=== PATIENT | female | born 1980 | race Caucasian/White ===

== ENCOUNTER 2016-07-16 10:58 | Emergency (ER) | payer SELFPAY ==
[~2016-07-16] VITALS: Ht 162.6 cm; Wt 52.1 kg
[~2016-07-16 10:58] MED LIST: CALC-335 PO; CLON0.1T12 PO; CYAN10002 INJ; NORT10CA2 PO; OMEP20TA PO; PEDICHW50 PO; TRAZ50TA35 PO
[2016-07-16 11:10] VITALS: Ht 162.6 cm; Wt 52.1 kg
[2016-07-16] MEDS ORDERED: CYNI1000 INJ (11:31)
[2016-07-16 11:59] LABS: BASO % 0.1 %; BASO ABS # 0.01 K/uL (0-0.2); COMPLETE YES; EOS % 1.9 %; HEMATOCRIT 46.3 % (37-47); IG% 0.2 %; LYMPH ABS # 0.77 K/uL (1.2-3.4); MEAN CELL VOLUME 85.3 fL (80-100); MEAN CORPUSCULAR HGB CONC 35.2 g/dl (32-36); MEAN PLATELET VOLUME 10.8 fL (7.4-10.4); NEUT % 85.8 %; PLATELET COUNT 195 K/uL (130-400); RED BLOOD COUNT 5.43 M/uL (4.2-5.4); WHITE BLOOD COUNT 9.57 K/uL (4.8-10.8)
[2016-07-16] MEDS ORDERED: SODIUM CHLORIDE 0.9% 1000ML 1,000 ML IV STA (12:00)
[2016-07-16] MEDS ORDERED: MoRPHine SULFATE 4 MG/ML 1 ML CARP\\VIAL IV STA ×2 (12:00→14:17)
[2016-07-16] MEDS ORDERED: ONDANSETRON INJ 2 MG/ML 2 ML VIAL IV STA ×2 (12:00→14:10)
[2016-07-16 12:27] LABS: CREATININE 0.6 mg/dl (0.60-1.20)
[2016-07-16 12:28] LABS: BUN/CREATININE RATIO 11.8 (10-20); CALCIUM 8.6 mg/dl (8.5-10.1); POTASSIUM 3.2 mmol/L (3.5-5.1)
[2016-07-16 12:30] LABS: ALB/GLOB RATIO 1.1 (0.9-2)
--- NOTE | 2016-07-16 13:23 | DIAGNOSTIC IMAGING REPORT ---
PA CHEST RADIOGRAPH AND UPRIGHT AND SUPINE AP RADIOGRAPHS OF THE ABDOMEN CLINICAL HISTORY: Abdominal pain. COMPARISON STUDY: Chest radiograph July 21, [address] of the abdomen and pelvis January 08, 2016. FINDINGS: Lung volumes are normal. Lungs are clear. There is no pneumothorax or pleural effusion. Pulmonary vascularity is normal. Cardiac size is normal. Mediastinal contours are normal. There is no free air. The bowel gas pattern is normal. Bowel anastomoses are noted as well as cholecystectomy clips. IMPRESSION: 1. No free air or evidence of bowel obstruction. 2. No acute cardiopulmonary findings. Electronically signed by: Kevin Shepherd M.D. 07/16/2016 1:22 PM Dictated Date/Time: 07/16/2016 1:20 PM
[2016-07-16 14:34] LABS: URINE APPEARANCE CLEAR (CLEAR); URINE BILIRUBIN NEG (NEG); URINE COLOR YELLOW; URINE NITRITE NEG (NEG); URINE PH 6.5 (4.5-7.5); URINE SPECIFIC GRAVITY 1.013 (1.000-1.030); UROBILINOGEN NEG (NEG); ZZUR CULT IF INDIC CLEAN CATCH NO
[2016-07-16 14:37] LABS: MANUAL MICROSCOPIC REQUIRED? NO; REVIEW REQ? NO
[2016-07-16] MEDS ORDERED: ACETAMINOPHEN 500 MG TAB PO STA (15:09)
[2016-07-16 16:28] VITALS: BP 120/63; PULSE 97; TEMP 37.9; O2SAT 96
--- NOTE | 2016-07-16 21:51 | EMERGENCY ROOM VISIT NOTE ---
ED Visit Note First contact with patient: 11:50 Chief Complaint: Abdominal pain, nausea, vomiting and diarrhea. History of Present Illness: Ms. Orellana is a 35-year-old white female who ambulates into the ED accompanied by male friend complaining of diffuse abdominal pain, nausea, vomiting and diarrhea. Historically patient reports history of gastric bypass and is status post bowel obstruction, status post appendectomy, hiatal hernia and GERD. Patient reports her symptoms started 2 days ago with nausea, vomiting and diarrhea. Initially her symptoms were mild and gradually intensified. She reports that she has been vomiting 4-5 times in 12 hours and has been having watery stools 3-4 times every 12 hours. Over the last 24 hours she has been developing diffuse abdominal pain. She describes her pain as a cramping sensation. Her pain is nonradiating. She describes a building intensity of pain and then has an episode of vomiting or diarrhea. She reports she has not been able to take any medications for her symptoms prior to arrival at the hospital as they increase her nausea/vomiting. Over the last few hours she reports that she is no longer vomiting but just dry heaving. Associated with her pain and other symptoms she reports she feels like she is dehydrated, she has developed a headache and has been having some chills. Additionally patient reports that her grandmother was admitted to the hospital 4 days ago with similar symptoms and her current boyfriend had similar symptoms 2 days ago. She denies chills, sweats, skin eruptions, skin color changes, dizziness, lightheadedness, recent head trauma, abnormal neurological symptoms, neck pain, back pain, chest pain, shortness of breath, cough, wheezing, hematemesis, coffee ground-like emesis, black/tarry stools, bloody stools, urinary symptoms, hematuria. Review of Systems: As noted above in history of present illness. All body systems were reviewed and found to be negative as noted above. Past Medical History: As previously noted, depression and status post tonsillectomy. Current Medications: Multivitamins, calcium, trazodone, Catapres, Omeprazole, cyanocobalamin. Allergies to Medications: Hydromorphone, NSAIDs, bupropion. Social History: Patient is currently unemployed; she feels safe in her home environment; she admits to tobacco use and denies alcohol use. Physical Examination: Vital Signs: Date Time Temp Pulse Resp B/P Pulse Ox O2 Delivery O2 Flow Rate FiO2 07/16/16 16:28 37.9 97 16 120/63 96 Room Air 07/16/16 14:46 38.2 105 20 95 Room Air 07/16/16 13:17 64 16 111/76 100 Room Air 07/16/16 11:10 37.0 81 18 133/83 97 Room Air GENERAL: 35-year-old female in moderate distress due to symptoms, nontoxic- appearing, afebrile and hemodynamically stable. NEUROLOGICAL: Awake, alert and oriented to person, place and time. Answering questions appropriately and following commands. Normal gait. Good hand eye coordination. No focal motor sensory deficits. SKIN: Warm, dry and pink. No soft tissue eruptions or trauma noted. HEENT: Atraumatic and normocephalic. PERRLA. Sclera white and conjunctiva pink. No drainage from naris. Oral cavity moist and pink. Pharynx is nonerythematous or edematous. Speech normal. No lymphadenopathy. Trachea midline. No jugular venous distention. BACK: No tenderness over the bony spine. No CVA tenderness. THORAX: Lungs sounds are clear to auscultation and equal bilaterally with symmetrical chest wall. No wheezing, rales or rhonchi. No crepitus, tenderness , subcutaneous air or deformities noted. HEART: Regular rate and rhythm. No gallops, rubs or murmurs are appreciated. ABDOMEN: Flat and soft with moderate diffuse tenderness. Positive bowel sounds in all quadrants. No guarding, rigidity or organomegaly. EXTREMITIES: Moves all extremities well on command and with purpose. All distal neurovascular statuses are intact and equal bilaterally. ED Course: Patient is assessed as noted above. Laboratory Testing: Test 07/16/16 11:20 07/16/16 14:05 Range/Units White Blood Count 9.57 4.8-10.8 K/uL Red Blood Count 5.43 4.2-5.4 M/uL Hemoglobin 16.3 12.0-16.0 g/dL Hematocrit 46.3 37-47 % Mean Corpuscular Volume 85.3 80-100 fL Mean Corpuscular Hemoglobin 30.0 25-34 pg Mean Corpuscular Hemoglobin Concent 35.2 32-36 g/dl Platelet Count 195 130-400 K/uL Mean Platelet Volume 10.8 7.4-10.4 fL Neutrophils (%) (Auto) 85.8 % Lymphocytes (%) (Auto) 8.0 % Monocytes (%) (Auto) 4.0 % Eosinophils (%) (Auto) 1.9 % Basophils (%) (Auto) 0.1 % Neutrophils # (Auto) 8.21 1.4-6.5 K/uL Lymphocytes # (Auto) 0.77 1.2-3.4 K/uL Monocytes # (Auto) 0.38 0.11-0.59 K/uL Eosinophils # (Auto) 0.18 0-0.5 K/uL Basophils # (Auto) 0.01 0-0.2 K/uL RDW Standard Deviation 39.2 36.4-46.3 fL RDW Coefficient of Variation 12.5 11.5-14.5 % Immature Granulocyte % (Auto) 0.2 % Immature Granulocyte # (Auto) 0.02 0.00-0.02 K/uL Sodium Level 141 136-145 mmol/L Potassium Level 3.2 3.5-5.1 mmol/L Chloride Level 104 98-107 mmol/L Carbon Dioxide Level 28 21-32 mmol/L Anion Gap 9.0 3-11 mmol/L Blood Urea Nitrogen 7 7-18 mg/dl Creatinine 0.60 0.60-1.20 mg/dl Est Creatinine Clear Calc Drug Dose 106.6 ml/min Estimated GFR () 135.9 Estimated GFR (Non- 117.3 BUN/Creatinine Ratio 11.8 10-20 Random Glucose 108 70-99 mg/dl Calcium Level 8.6 8.5-10.1 mg/dl Total Bilirubin 0.5 0.2-1 mg/dl Aspartate Amino Transf (AST/SGOT) 12 15-37 U/L Alanine Aminotransferase (ALT/SGPT) 20 12-78 U/L Alkaline Phosphatase 50 45-117 U/L Total Protein 6.4 6.4-8.2 gm/dl Albumin 3.3 3.4-5.0 gm/dl Globulin 3.1 2.5-4.0 gm/dl Albumin/Globulin Ratio 1.1 0.9-2 Lipase 76 73-393 U/L Urine Color YELLOW Urine Appearance CLEAR CLEAR Urine pH 6.5 4.5-7.5 Urine Specific [place] 1.013 1.000-1.030 Urine Protein NEG NEG Urine Glucose (UA) NEG NEG Urine Ketones 2+ NEG Urine Occult Blood NEG NEG Urine Nitrite NEG NEG Urine Bilirubin NEG NEG Urine Urobilinogen NEG NEG Urine Leukocyte Esterase NEG NEG Acute Abdominal Series: Was reviewed by myself and read by the radiologist showing no acute infiltrates, effusions or pneumothorax. Normal heart silhouette and bony anatomy. No evidence of bowel obstruction or free air in the abdomen. Patient was hydrated with normal saline, she received a total of 8 mg of Zofran IV for nausea and a total of 8 mg of morphine IV for pain. Additionally she was noted to have fever leg during her stay in the ED and she was given 1 g of acetaminophen by mouth for fever. Patient was reassessed multiple times during her stay in the emergency department. Patient was trialed on juice and crackers and was able to tolerate this without return of nausea/vomiting. Additionally she was not able to give me a stool sample for study. Patient's case was reviewed with Dr. Hale; we agreed on diagnostic approach, treatment, disposition and plan. Patient was educated about negroight's findings and instructed on her treatment plan; she verbalizes understanding and agreement with this plan. Clinical Impression: Acute gastroenteritis. Decision-Making: Initially my differential diagnosis I considered gastroenteritis, colitis, bowel obstruction, diarrheal illness, C. difficile and other causes. Disposition: Patient discharged home in stable condition accompanied by her ; prior to departure she was reassessed and subjectively reported she was feeling much better and reported resolution of nausea, no additional episodes of diarrhea and rated her abdominal discomfort 2/10. Plan: Patient was encouraged use 650 mg of acetaminophen every 6 hours as needed for pain and NSAIDs. Patient was encouraged to use 4 mg of Zofran every 6 hours for nausea/vomiting and use [id number] Imodium for return of diarrhea. Patient was encouraged to stay well-hydrated neck days and use a bland diet for 48 hours. Patient was encouraged to follow-up with her primary care practitioner for recheck in 2-3 days. Patient was encouraged return ED for worsening/uncontrolled pain, worsening vomiting, diarrhea, bloody vomitus, bloody stools, fevers or any new/concerning symptoms.
== END 2016-07-16 16:30 | disposition home or self-care (01) ==
LOC: C.EDB 11:02
DX: K52.9 Noninfective gastroenteritis and colitis, unspecified (principal); F17.200 Nicotine dependence, unspecified, uncomplicated; F32.9 Major depressive disorder, single episode, unspecified

== ENCOUNTER 2017-04-17 03:18 | Emergency (ER) | payer SELFPAY ==
[~2017-04-17] VITALS: Ht 162.6 cm; Wt 53.5 kg
[~2017-04-17 03:18] MED LIST changes: -CYAN10002 INJ; +CYNI1000 INJ; -NORT10CA2 PO
[2017-04-17 03:23] VITALS: TEMP 36.7; Ht 162.6 cm; Wt 53.5 kg
[2017-04-17] MEDS ORDERED: CLONIDINE HCL 0.1 MG/24 HR TRANSDERM SYS TD STA (04:01)
--- NOTE | 2017-04-17 04:11 | EMERGENCY ROOM VISIT NOTE ---
History Report prepared by Kathya: Daya Christensen Under the Supervision of: Dr. Flor Suggs D.O. First contact with patient: 03:37 Chief Complaint: DETOX REQUEST Stated Complaint: DETOX REQUEST Nursing Triage Summary: Patient wishes to detox from opioids. Patient states she used heroin one hour ago. 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 The patient states that she is a heroin addict. She last used heroin 1 hour ago. She states that she stooped to the lowest level tonight by stealing her mother's [employer] card and car to go get some heroin. She was starting to have withdrawal symptoms today which drove her to go buy more heroin. She did use heroin yesterday. She has been using heroin intermittently for the past year. She went through detox 2 times. The first time she stayed clean for 1 month and the second time she stayed clean for 2 month. She started using again 3-4 months ago. She is now using daily. She has withdrawal symptoms if she does not use daily. Her withdrawal symptoms include cold sweats, sneezing, cold symptoms, leg pain, abdominal pain, vomiting, and diarrhea. She currently denies any nausea. She denies any other drug use or alcohol use. She has a history of gastric bypass, stomach problems, anxiety, and back pain. 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 A total of 10 systems reviewed and were otherwise negative. Past Medical & Surgical Medical Problems: (1) Depression (2) GERD (gastroesophageal reflux disease) Surgical Problems: (1) H/O gastric bypass (2) History of cholecystectomy (3) Hx of tonsillectomy Family History Cancer Diabetes mellitus Gallbladder disease Hypertension Kidney disease or stones Social History Smoking Status: Current Every Day Smoker Alcohol Use: none Marital Status: Housing Status: lives with family Occupation Status: employed Current/Historical Medications Scheduled Calcium Citrate-Vitamin D (Citracal Petites/Vitamin), 5 TABLETS PO DAILY Omeprazole (Omeprazole), 40 MG PO DAILY Ondasetron Odt (Zofran Odt), 4 MG SL Q8 Pediatric Multiple Vitamin W/ (Flintstones Chewable), 2 CHW PO BID Scheduled PRN Trazodone Hcl (Trazodone), 25-50 MG PO HS PRN for Sleep Allergies Coded Allergies: Bupropion (Verified Allergy, Unknown, HIVES, 04/17/17) NSAIDs (Verified Allergy, Unknown, GASTRIC BYPASS, 04/17/17) Hydromorphone (Verified Adverse Reaction, Mild, VOMITING, 04/17/17) Physical Exam Vital Signs Date Time Temp Pulse Resp B/P (MAP) Pulse Ox O2 Delivery O2 Flow Rate FiO2 04/17/17 05:12 73 16 109/65 96 04/17/17 04:54 64 16 109/68 96 Room Air 04/17/17 03:23 36.7 108 20 128/90 97 Room Air Physical Exam GENERAL: tearful, anxious LUNGS: Clear to auscultation. Normal chest wall mechanics HEART: no murmurs, S1 normal and S2 normal ABDOMEN: abdomen soft, non-tender, normo-active bowel sounds, no masses, no rebound or guarding. SKIN: no rashes and no bruising UPPER EXTREMITIES: upper extremities are grossly normal. LOWER EXTREMITIES: No pitting edema. NEURO EXAM: Normal sensorium, cranial nerves II-XII grossly intact, normal speech, no gross weakness of arms, no gross weakness of legs. Medical Decision & Procedures Medications Administered Medications (Trade) Dose Ordered Sig/Keven Route Start Time Stop Time Status Last Admin Dose Admin Clonidine HCl ([id number] 0.1mg/24hr Patch) 1 patch NOW STAT TD 04/17/17 04:01 04/17/17 04:03 DC 04/17/17 04:41 1 PATCH ED Course 0340: The patient was evaluated in room B3B. A complete history and physical exam was performed. 0401: Ordered Clonidine HCl 1 patch TD. 0410: The correctional case manager has spoken with the patient about rehab. She is in understanding of the plan. She was discharged home. 0415: Ordered Ondansetron HCl 1 homepack PO. Medical Decision Patient without any symptoms of acute intoxication. Patient tearful and remorseful. Bedside regarding her continued heroin addiction. No symptoms of active withdrawal. Patient was given referrals by correctional case manager regarding [facility] resources for drug rehabilitation. Patient given Valefran as Certain, clonidine patch placed. Discussed with her symptoms to watch and return for, usual course and timeframe for detox, need for continued support in her efforts to stay clean, she verbalized understanding of all this was agreeable with plan. Medication Reconcilliation Current Medication List: was personally reviewed by me Blood Pressure Screening Patient's blood pressure: Elevated blood pressure Blood pressure disposition: Elevated BP felt to be situational Impression Primary Impression: Heroin abuse Additional Impression: Anxiety Scribe Attestation The scribe's documentation has been prepared under my direction and personally reviewed by me in its entirety. I confirm that the note above accurately reflects all work, treatment, procedures, and medical decision making performed by me. Departure Information Dispostion Home / Self-Care Prescriptions Ondasetron Odt (ZOFRAN ODT) 4 Mg Tab 4 MG SL Q8 for Nausea, #20 TAB Prov: Flor Suggs, DO 04/17/17 Referrals Alexey Buenrostro M.D.([facility]) (PCP) Patient Instructions My [facility] Additional Instructions Please do not use illegal drugs. Use of illegal drugs can result in long-term health complications, incarceration, and even . You may use a nausea medication as prescribed. Please leave the patch on for a week unless it is irritating to your skin. If you are developing complications or symptoms related to heroin withdrawal, please return the emergency room. If you begin to have any worsening anxiety or depression symptoms, please return the emergency room. Problem Qualifiers
[2017-04-17] MEDS ORDERED: ONDA4TAB10 SL (04:12)
[2017-04-17] MEDS ORDERED: ONDANSETRON HOME PACK 4MG OD TAB PO ONE (04:15)
[2017-04-17 05:12] VITALS: BP 109/65; PULSE 73; O2SAT 96
== END 2017-04-17 05:13 | disposition home or self-care (01) ==
LOC: C.EDB 03:19
DX: F11.10 Opioid abuse, uncomplicated (principal); F41.9 Anxiety disorder, unspecified; F32.9 Major depressive disorder, single episode, unspecified; K21.9 Gastro-esophageal reflux disease without esophagitis; Z98.84 Bariatric surgery status; Z80.9 Family history of malignant neoplasm, unspecified; Z83.3 Family history of diabetes mellitus; Z83.79 Family history of other diseases of the digestive system; Z82.49 Family history of ischemic heart disease and other diseases of the circulatory system; Z84.1 Family history of disorders of kidney and ureter; F17.210 Nicotine dependence, cigarettes, uncomplicated; Z79.899 Other long term (current) drug therapy

== ENCOUNTER 2017-05-31 02:00 | Emergency (ER) | payer OTHER ==
[~2017-05-31] VITALS: Ht 162.6 cm; Wt 55.7 kg
[~2017-05-31 02:00] MED LIST changes: -CLON0.1T12 PO; -CYNI1000 INJ; +ONDA4TAB10 SL
[2017-05-31 02:02] VITALS: TEMP 36.7; Ht 162.6 cm; Wt 55.7 kg
[2017-05-31] MEDS ORDERED: METOCLOPRAMIDE HCL INJ 5 MG/ML 2 ML VIAL IV STA (02:17)
[2017-05-31] MEDS ORDERED: LIDOCAINE HCL 2% VISC SOLN 20 ML UDC PO STA (02:17)
[2017-05-31] MEDS ORDERED: SODIUM CHLORIDE 0.9% 1000ML 1,000 ML IV STA (02:17)
[2017-05-31] MEDS ORDERED: DiphenhydrAMINE HCL 50 MG/ML VIAL IV STA (02:17)
[2017-05-31] MEDS ORDERED: ALUMINUM/MAGNESIUM SUSP 30 ML UDC PO STA (02:17)
[2017-05-31] MEDS ORDERED: ONDA4TAB10 SL (02:30)
[2017-05-31] MEDS ORDERED: DICYCLOMINE HCL 10 MG/ML 2 ML AMP IM ONE (02:30)
[2017-05-31] MEDS ORDERED: QUET200T2 PO (02:31)
[2017-05-31] MEDS ORDERED: METH-307 PO (02:32)
[2017-05-31] MEDS ORDERED: ROPI0.25 PO (02:33)
[2017-05-31] MEDS ORDERED: BUSP15TA70 PO (02:35)
[2017-05-31 02:45] VITALS: O2SAT 97
[2017-05-31 02:58] LABS: BASO % 0.2 %; BASO ABS # 0.02 K/uL (0-0.2); EOS % 0.8 %; EOS ABS # 0.07 K/uL (0-0.5); HEMATOCRIT 41.3 % (37-47); IG# 0.01 K/uL (0.00-0.02); LYMPH % 22.1 %; LYMPH ABS # 2.01 K/uL (1.2-3.4); MEAN CELL VOLUME 80.5 fL (80-100); MEAN CORPUSCULAR HEMOGLOBIN 27.3 pg (25-34); MEAN CORPUSCULAR HGB CONC 33.9 g/dl (32-36); MEAN PLATELET VOLUME 9.7 fL (7.4-10.4); MONO % 4.7 %; MONO ABS # 0.43 K/uL (0.11-0.59); NEUT % 72.1 %; NEUT ABS # 6.54 K/uL (1.4-6.5); PLATELET COUNT 227 K/uL (130-400); RED CELL DISTRIBUTION WIDTH CV 15.8 % (11.5-14.5); RED CELL DISTRIBUTION WIDTH SD 46.2 fL (36.4-46.3); WHITE BLOOD COUNT 9.08 K/uL (4.8-10.8)
[2017-05-31 03:20] LABS: ALT/SGPT 17 U/L (12-78); AST/SGOT 9 U/L (15-37); BLOOD UREA NITROGEN 12 mg/dl (7-18); CALCIUM 8.7 mg/dl (8.5-10.1); CARBON DIOXIDE 29 mmol/L (21-32); CREATININE 0.66 mg/dl (0.60-1.20); GLUCOSE 103 mg/dl (70-99); LIPASE 96 U/L (73-393); POTASSIUM 2.8 mmol/L (3.5-5.1); SODIUM 136 mmol/L (136-145)
[2017-05-31] MEDS ORDERED: POTASSIUM CHLORIDE 20 MEQ/15 ML UDC PO STA ×3 (03:24→05:25)
[2017-05-31] MEDS ORDERED: POTASSIUM CHLR 20 MEQ / WTR 20 MEQ in PREMIXED WATER 100 ML IV STA (03:24)
[2017-05-31 03:25] LABS: ALKALINE PHOSPHATASE 69 U/L (45-117); TOTAL PROTEIN 7.8 gm/dl (6.4-8.2)
[2017-05-31] MEDS ORDERED: KETOROLAC TROMETHAMINE 30 MG/ML VIAL IV STA (03:45)
[2017-05-31] MEDS: POTASSIUM CHLR 10MEQ / WTR IV SCH ×2 (04:11→05:00)
[2017-05-31] MEDS ORDERED: BENTYL HOME PACK 10 MG VIAL PO ONE (04:15)
[2017-05-31] MEDS ORDERED: ONDANSETRON HOME PACK 4MG OD TAB PO ONE (04:15)
--- NOTE | 2017-05-31 05:31 | EMERGENCY ROOM VISIT NOTE ---
History First contact with patient: 02:08 Chief Complaint: VOMITING Stated Complaint: CHEST,BACK AND STOMACH PAIN,VOMITING Nursing Triage Summary: see triage note History of Present Illness The patient is a 36 year old female who presents to the Emergency Room with complaints of nausea, vomiting, diarrhea, abdominal cramping, chest pain and dental pain for the past few days that is steadily getting worse. Patient has a history apparently abuse and has been clean for 1 month now. No recent antibiotics. No well water. Patient denies fever, cough, congestion, headache , neck pain, back pain. No sick contacts. No blood or black in the stool or emesis. Review of Systems See HPI for pertinent positives & negatives. A total of 10 systems reviewed and were otherwise negative. Past Medical/Surgical History Medical Problems: (1) Depression (2) GERD (gastroesophageal reflux disease) Surgical Problems: (1) H/O gastric bypass (2) History of cholecystectomy (3) Hx of tonsillectomy Family History Cancer Diabetes mellitus Gallbladder disease Hypertension Kidney disease or stones Social History Smoking Status: Current Every Day Smoker Alcohol Use: none Marital Status: Housing Status: lives with family Occupation Status: employed Current/Historical Medications Scheduled Buspirone Hcl (Buspar), 15 MG PO TID Calcium Citrate-Vitamin D (Citracal Petites/Vitamin), 5 TABLETS PO DAILY Omeprazole (Omeprazole), 40 MG PO DAILY Pediatric Multiple Vitamin W/ (Flintstones Chewable), 2 CHW PO BID Quetiapine Fumarate Xr (Seroquel Xr), 200 MG PO HS Ropinirole (Requip), 0.25 MG PO TID/PRN Scheduled PRN Methocarbamol (Robaxin), 750 MG PO TID PRN for SPASMS Ondasetron Odt (Zofran Odt), 4 MG SL Q8 PRN for Nausea or Vomiting Physical Exam Vital Signs Date Time Temp Pulse Resp B/P (MAP) Pulse Ox O2 Delivery O2 Flow Rate FiO2 05/31/17 04:28 64 20 150/94 100 Room Air 05/31/17 02:55 66 05/31/17 02:45 97 Room Air 05/31/17 02:45 97 Room Air 05/31/17 02:02 36.7 73 18 157/90 99 Room Air Physical Exam VITALS: Vitals are noted on the nurse's note and reviewed by myself. Vital signs stable. GENERAL: White female, in no acute distress, nondiaphoretic, well-developed well -nourished. SKIN: The skin was without rashes, erythema, edema, or bruising. There is no tenting of the skin. Capillary reflex less than 2 seconds. HEAD: Normocephalic atraumatic. EARS: External auditory canals clear, tympanic membranes pearly bronson without erythema or effusion bilaterally. EYES: Pupils equal round and reactive to light and accommodation. Conjunctivae without injection, sclerae without icterus. Extraocular movements intact. NOSE: Patent, turbinates without inflammation or discharge. No sinus tenderness. MOUTH: Mucous membranes mildly dry. Pharynx without erythema or exudate. Uvula midline. Airway patent. Tongue does not deviate. Dental exam: Right lower second molar with extensive dental decay with no palpable abscess. Overall dental hygiene fair. No Ravi angina NECK: Supple without nuchal rigidity. No lymphadenopathy. No thyromegaly. Cervical spine is nontender. No JVD. HEART: Regular rate and rhythm LUNGS: Clear to auscultation bilaterally without wheezes, rales or rhonchi. No dullness to percussion. No retractions or accessory muscle use. ABDOMEN: Positive bowel sounds x 4. Normal tympanic percussion. Soft, nontender, without masses or organomegaly. Thomson sign negative. No guarding or rebound tenderness. No CVA tenderness MUSCULOSKELETAL: No muscle atrophy, erythema, or edema noted. NEURO: Patient was alert and oriented to person place and time. Normal sensation to light and sharp touch. No focal neurological deficits. Medical Decision & Procedures Laboratory Results 05/31/17 02:35 Red Blood Count 5.13, Mean Corpuscular Volume 80.5, Mean Corpuscular Hemoglobin 27.3, Mean Corpuscular Hemoglobin Concent 33.9, Mean Platelet Volume 9.7, Neutrophils (%) (Auto) 72.1, Lymphocytes (%) (Auto) 22.1, Monocytes (%) (Auto) 4.7, Eosinophils (%) (Auto) 0.8, Basophils (%) (Auto) 0.2, Neutrophils # (Auto) 6.54, Lymphocytes # (Auto) 2.01, Monocytes # (Auto) 0.43, Eosinophils # (Auto) 0.07, Basophils # (Auto) 0.02 05/31/17 02:35 Test 05/31/17 02:35 05/31/17 04:59 White Blood Count 9.08 K/uL (4.8-10.8) Red Blood Count 5.13 M/uL (4.2-5.4) Hemoglobin 14.0 g/dL (12.0-16.0) Hematocrit 41.3 % (37-47) Mean Corpuscular Volume 80.5 fL (80-100) Mean Corpuscular Hemoglobin 27.3 pg (25-34) Mean Corpuscular Hemoglobin Concent 33.9 g/dl (32-36) Platelet Count 227 K/uL (130-400) Mean Platelet Volume 9.7 fL (7.4-10.4) Neutrophils (%) (Auto) 72.1 % Lymphocytes (%) (Auto) 22.1 % Monocytes (%) (Auto) 4.7 % Eosinophils (%) (Auto) 0.8 % Basophils (%) (Auto) 0.2 % Neutrophils # (Auto) 6.54 K/uL (1.4-6.5) Lymphocytes # (Auto) 2.01 K/uL (1.2-3.4) Monocytes # (Auto) 0.43 K/uL (0.11-0.59) Eosinophils # (Auto) 0.07 K/uL (0-0.5) Basophils # (Auto) 0.02 K/uL (0-0.2) RDW Standard Deviation 46.2 fL (36.4-46.3) RDW Coefficient of Variation 15.8 % (11.5-14.5) Immature Granulocyte % (Auto) 0.1 % Immature Granulocyte # (Auto) 0.01 K/uL (0.00-0.02) Anion Gap 7.0 mmol/L (3-11) Est Creatinine Clear Calc Drug Dose 100.8 ml/min Estimated GFR () 130.8 Estimated GFR (Non- 112.9 BUN/Creatinine Ratio 17.4 (10-20) Calcium Level 8.7 mg/dl (8.5-10.1) Magnesium Level 2.1 mg/dl (1.8-2.4) Total Bilirubin 0.4 mg/dl (0.2-1) Direct Bilirubin 0.1 mg/dl (0-0.2) Aspartate Amino Transf (AST/SGOT) 9 U/L (15-37) Alanine Aminotransferase (ALT/SGPT) 17 U/L (12-78) Alkaline Phosphatase 69 U/L (45-117) Troponin I < 0.015 ng/ml (0-0.045) Total Protein 7.8 gm/dl (6.4-8.2) Albumin 4.0 gm/dl (3.4-5.0) Lipase 96 U/L (73-393) Human Chorionic Gonadotropin, Qual NEG (NEG) Bedside Troponin I < 0.030 ng/ml (0-0.045) Medications Administered Medications (Trade) Dose Ordered Sig/Keven Route Start Time Stop Time Status Last Admin Dose Admin Lidocaine HCl (Viscous Lidocaine 2% Soln) 10 ml NOW STAT PO 05/31/17 02:17 05/31/17 02:19 DC 05/31/17 02:44 10 ML Al Hydroxide/Mg Hydroxide (Maalox Susp) 30 ml NOW STAT PO 05/31/17 02:17 05/31/17 02:19 DC 05/31/17 02:44 30 ML Metoclopramide HCl (Reglan Inj) 10 mg NOW STAT IV 05/31/17 02:17 05/31/17 02:19 DC 05/31/17 02:44 10 MG Diphenhydramine HCl (Benadryl Inj) 25 mg NOW STAT IV 05/31/17 02:17 05/31/17 02:19 DC 05/31/17 02:44 25 MG Dicyclomine HCl (Bentyl Inj) 20 mg NOW ONCE IM 05/31/17 02:30 05/31/17 02:31 DC 05/31/17 02:44 20 MG Sodium Chloride 1,000 ml @ 999 mls/hr Q1H1M STAT IV 05/31/17 02:17 05/31/17 03:17 DC 05/31/17 02:43 999 MLS/HR Potassium Chloride (Cindi Ciel Elix) 40 meq NOW STAT PO 05/31/17 03:24 05/31/17 03:26 DC 05/31/17 03:24 40 MEQ Ketorolac Tromethamine (Toradol Inj) 30 mg NOW STAT IV 05/31/17 03:45 05/31/17 03:46 DC 05/31/17 03:45 30 MG Potassium Chloride 10 meq/ Prmx 100 ml @ 100 mls/hr Q1H IV 05/31/17 04:00 05/31/17 05:59 05/31/17 05:00 100 MLS/HR ED Course Prior records/ancillary studies reviewed. Triage Nursing notes reviewed. Additional history obtained from the family. The patient's history was concerning for nausea, vomiting, diarrhea, and abdominal pain with dental pain and chest pain. Differential diagnosis: Etiologies such as gastroenteritis, dental caries, dental abscess, cardiac, food borne illness, infections, appendicitis, diverticulitis, inflammatory bowel disease, obstruction, GI bleed, biliary pathology, as well as others were entertained. Physical examination findings: As above. Abdominal examination revealed no localized tenderness. Vital signs reviewed and revealed stable. ER treatment provided: IV hydration 1 L NSS. GI cocktail, Bentyl, Reglan, Benadryl On reassessment the patient felt better. Patient was tolerating p.o. intake. Diagnostics interpretation by me: EKG: Normal sinus, normal intervals, no acute ST-T changes. Impression normal sinus rhythm interpreted by myself. Poor baseline. The labs revealed hypokalemia and this is replaced orally. Negative hCG. 2 negative troponins. Imaging studies: Chest x-ray with no acute consolidation, pneumothorax or free air per my interpretation This appears to be consistent with vomiting and diarrhea most likely viral in etiology and dental pain from dental caries. Patient started screaming and yelling at the nurse demanding for pain meds. She was informed that she was not receiving narcotics tonight. She then started yelling screaming at me saying that I thought she is drug-seeking. Nurse, Brain was present for this. 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 I informed her that she does not need narcotics for his GI illness with vomiting and diarrhea. Patient then demanded to leave. I felt this is reasonable to replace potassium orally as she refused further IV potassium therapy. Patient's first dose of potassium was replaced orally. She is tolerating fluids. I believe her chest pain is most likely related to her gastritis and was advised to continue her omeprazole as directed and to take Maalox and Zantac for breakthrough symptoms. She is advised to rest, stay well-hydrated and to take medications as directed. She is advised to follow-up with family care in a few days or here in the ER sooner for vomiting, fevers, pain, worsening signs or symptoms or as needed. Patient did not have acute abdomen on exam. She is well-appearing. By the evaluation outlined above emergent etiologies such as appendicitis, diverticulitis, obstruction, cardiac sources, mesenteric ischemia, aortic pathology, inflammatory bowel disease, renal colic, PUD, biliary pathology, UTI, as well as others were deemed relatively unlikely. The pt informed about the findings as listed above. All questions were answered and displeased with the treatment as she wanted pain meds for her symptoms today. Return instructions were outlined and the patient was discharged in stable condition. Outpatient prescription management: ji orozco Bentyl Referral: The patient was referred to their primary care physician for follow-up in 2 to 3 days for a recheck of the current condition. Case reviewed with my attending Medical Decision As above Medication Reconcilliation Current Medication List: was personally reviewed by me Blood Pressure Screening Patient's blood pressure: Elevated blood pressure Blood pressure disposition: Elevated BP felt to be situational Impression Primary Impression: Nausea, vomiting, and diarrhea Additional Impressions: Epigastric abdominal pain Dental caries Pain, dental Departure Information Dispostion Home / Self-Care Condition GOOD Referrals No Doctor, Assigned (PCP) Patient Instructions My [facility] Additional Instructions DO NOT drive, drink alcohol, operate machinery, or perform dangerous activities today. You were given medications in the ER that can affect your ability to safely function or operate a vehicle. Take 40 mEq of potassium at lunch and the other 40 mEq of potassium at dinner. Bentyl 10 m tablet every 6 hours as needed for abdominal cramping and diarrhea. Zofran(odansetron) tablets 4mg: Take one and allow it to dissolve in your mouth every four to six hours as needed for nausea or vomiting. Acetaminophen(Tylenol) may be used for fever or pain. Use 500mg every six hours as needed. Avoid using more than 2000mg in a 24 hour period. Rest and drink plenty of fluids as tolerated. Slow sips of water or sports drinks are recommended instead of large amounts all at once. Continue current medications. Once your stomach is settled start with a clear liquid diet (jello, soup broth, etc.) and then advance as tolerated. You should avoid full, heavy meals for about 24 hrs from the time your symptoms resolved. Return to the ER for persistent vomiting, fevers, abdominal pain, chest pains, difficulty breathing, black or bloody stools, worsening of your condition, or as needed. Follow up with your primary physician in 2-3 days for a recheck of your current condition. Dental pain: Clindamycin 150mg: Take one pill 4 times daily for 10 days for your infection. Take with food, but avoid dairy. Avoid prolonged sun exposure since this medication makes you temporarily more susceptible to sunburns. All antibiotics can cause diarrhea. If this occurs and you feel worse or it does not resolve in 1-2 days follow up with your doctor or return to the Emergency Department as this could be signs of serious underlying problems. Any medication can cause an allergic reaction, stop the pills immediately and return to the ER for rash, hives, breathing difficulties, or swelling. Acetaminophen(Tylenol) may be used for fever or pain. Use 1000mg every six hours as needed. Avoid using more than 3000mg in a 24 hour period. This medication can be taken if you need to drive, work, or perform activities which may be dangerous when taking narcotic pain medication. Luther teeth twice a day, floss daily and do warm saltwater gargles 3 times a day. See a dentist as soon as possible for definitive care for your dental problem. Return to ER sooner for facial swelling, fever, redness, worsening signs or symptoms or as needed. Problem Qualifiers
[2017-05-31] MEDS ORDERED: CLIN150C PO (05:32)
[2017-05-31 05:38] VITALS: BP 134/70; PULSE 78; O2SAT 98
--- NOTE | 2017-05-31 08:00 | DIAGNOSTIC IMAGING REPORT ---
CHEST ONE VIEW PORTABLE CLINICAL HISTORY: Chest pain and vomiting. COMPARISON STUDY: Chest radiograph July 16, 2016. FINDINGS: Lung volumes are normal. No pneumothorax or pleural effusion is noted. Pulmonary vascularity is normal. Cardiomediastinal silhouette is normal. No consolidation is identified. IMPRESSION: No acute cardiopulmonary findings. Electronically signed by: Kevin Shepherd M.D. 05/31/2017 7:59 AM Dictated Date/Time: 05/31/2017 7:58 AM
== END 2017-05-31 05:39 | disposition home or self-care (01) ==
LOC: C.EDB 02:01
DX: R11.2 Nausea with vomiting, unspecified (principal); R19.7 Diarrhea, unspecified; K02.9 Dental caries, unspecified; E87.6 Hypokalemia; F32.9 Major depressive disorder, single episode, unspecified; K21.9 Gastro-esophageal reflux disease without esophagitis; F17.200 Nicotine dependence, unspecified, uncomplicated; Z98.84 Bariatric surgery status; Z90.49 Acquired absence of other specified parts of digestive tract; Z87.898 Personal history of other specified conditions; Z80.9 Family history of malignant neoplasm, unspecified; Z83.3 Family history of diabetes mellitus; Z83.79 Family history of other diseases of the digestive system; Z82.49 Family history of ischemic heart disease and other diseases of the circulatory system; Z84.1 Family history of disorders of kidney and ureter

== ENCOUNTER 2017-07-08 16:06 | Observation (INO) | payer OTHER ==
[~2017-07-08] VITALS: Ht 162.6 cm; Wt 62.7 kg
[~2017-07-08 16:06] MED LIST changes: +BUSP15TA70 PO; +METH-307 PO; +QUET200T2 PO; +ROPI0.25 PO; -TRAZ50TA35 PO
[2017-07-08] MEDS ORDERED: SODIUM CHLORIDE 0.9% 1000ML 1,000 ML IV STA (16:18)
[2017-07-08 16:31] LABS: BASO % 0.3 %; BASO ABS # 0.02 K/uL (0-0.2); EOS % 5.3 %; EOS ABS # 0.35 K/uL (0-0.5); HEMATOCRIT 38.1 % (37-47); HEMOGLOBIN 12.9 g/dL (12.0-16.0); LYMPH % 45.9 %; LYMPH ABS # 3.01 K/uL (1.2-3.4); MEAN CELL VOLUME 82.6 fL (80-100); MEAN CORPUSCULAR HGB CONC 33.9 g/dl (32-36); MEAN PLATELET VOLUME 9.8 fL (7.4-10.4); MONO % 6.9 %; MONO ABS # 0.45 K/uL (0.11-0.59); NEUT % 41.6 %; NEUT ABS # 2.73 K/uL (1.4-6.5); PLATELET COUNT 202 K/uL (130-400); RED CELL DISTRIBUTION WIDTH CV 16.2 % (11.5-14.5); WHITE BLOOD COUNT 6.56 K/uL (4.8-10.8)
[2017-07-08] MEDS ORDERED: OMEP40CA41 PO (16:31)
[2017-07-08] MEDS ORDERED: DEXTROSE 50% 50 ML SYR IV STA (16:36)
--- NOTE | 2017-07-08 16:49 | DIAGNOSTIC IMAGING REPORT ---
CHEST ONE VIEW PORTABLE CLINICAL HISTORY: 36 years-old Female presenting with ?seizure. TECHNIQUE: Portable upright AP view of the chest was obtained. COMPARISON: 05/31/2017. FINDINGS: Cardiomediastinal silhouette normal. Mildly low lung volumes with hypoventilatory changes. No focal opacity. No large effusion or pneumothorax. Osseous structures normal. Cholecystectomy clips noted. IMPRESSION: 1. Mildly low lung volumes with hypoventilatory changes. Otherwise no acute cardiopulmonary disease. Electronically signed by: Xavier Turpin M.D. 07/08/2017 4:47 PM Dictated Date/Time: 07/08/2017 4:47 PM
[2017-07-08 16:57] LABS: ALBUMIN 3.5 gm/dl (3.4-5.0); ALT/SGPT 17 U/L (12-78); AST/SGOT 13 U/L (15-37); BLOOD UREA NITROGEN 12 mg/dl (7-18); CALCIUM 8.3 mg/dl (8.5-10.1); CARBON DIOXIDE 21 mmol/L (21-32); CREATININE 0.64 mg/dl (0.60-1.20); PHOSPHORUS 3.3 mg/dl (2.5-4.9); POTASSIUM 3.2 mmol/L (3.5-5.1); SODIUM 140 mmol/L (136-145)
[2017-07-08 16:58] LABS: GLUCOSE 52 mg/dl (70-99)
[2017-07-08 17:16] LABS: ALKALINE PHOSPHATASE 75 U/L (45-117); TOTAL PROTEIN 6.8 gm/dl (6.4-8.2)
[2017-07-08] MEDS ORDERED: CALCIUM CARBONATE 500 MG CHEWABLE PO STA (17:27)
[2017-07-08] MEDS ORDERED: MAGNESIUM OXIDE 400 MG TAB PO STA (17:27)
[2017-07-08] MEDS ORDERED: POTASSIUM CHLORIDE 20 MEQ TABCR PO STA (17:27)
[2017-07-08] MEDS ORDERED: D5W AND 1/2NSS + 40MEQ KCL 1,000 ML IV STA (17:27)
--- NOTE | 2017-07-08 17:39 | DIAGNOSTIC IMAGING REPORT ---
HEAD WITHOUT CONTRAST (CT) CLINICAL HISTORY: 36 years-old Female presenting with EVALUATE FOR PSYCH CLEARANCE, seizure. TECHNIQUE: Multidetector CT imaging of the head was performed without the use of intravenous contrast. IV contrast: None. A dose lowering technique was used consistent with the principles of ALARA (as low as reasonably achievable). COMPARISON: None. CT DOSE (mGy.cm): The estimated cumulative dose is 537.48 mGy.cm. FINDINGS: A[employer] Social Worker topogram: Unremarkable. Ventricles and sulci normal in size. Brain parenchyma normal in appearance with preserved bronson-white differentiation. No mass effect or midline shift. No hemorrhage or acute territorial infarct. No extra-axial fluid collection. Paranasal sinuses and mastoid air cells clear. Calvarium intact. IMPRESSION: 1. No acute intracranial abnormality. Electronically signed by: Xavier Turpin M.D. 07/08/2017 5:38 PM Dictated Date/Time: 07/08/2017 5:36 PM
[2017-07-08] MEDS ORDERED: POTASSIUM CHLORIDE 10 MEQ TABCR ONE (18:10)
--- NOTE | 2017-07-08 18:22 | EMERGENCY ROOM VISIT NOTE ---
History Report prepared by Kathya: Moo Dunlap Under the Supervision of: Dr. Dex Champion M.D. First contact with patient: 16:09 History of Present Illness The patient is a 36 year old white female with a past medical history of gastric bypass, GERD, and depression who presents to the ED with a cc of an episode of generalized seizure-like activity occurring just prior to arrival. Patient was in the cafeteria at the hospital when she had a witnessed syncopal episode. Episode was witnessed by multiple physicians who believe the patient displayed seizure-like activity followed by post-ictal confusion. She has no history of seizures. Positive urinary incontinence. Negative chest pain, SOB, or arm or leg pain. Blood sugar was noted to be 63. The patient is a heroin user , and is unsure if her most recent usage was today or yesterday. Per mother, the patient was taking some sort of pill today, and is unsure if it may have been a drug. Source of History: patient Onset: Just prior to arrival Position: other (generalized) Quality: other (seizure-like activity) Timing: other (episode) Associated Symptoms: + urinary symptoms (loss of continence), No chest pain , No SOB Note: Negative: arm or leg pain. Positive: period of confusion following the episode. Review of Systems See HPI for pertinent positives and negatives. A total of ten systems were reviewed and were otherwise negative. Past Medical & Surgical Medical Problems: (1) Depression (2) GERD (gastroesophageal reflux disease) Surgical Problems: (1) H/O gastric bypass (2) History of cholecystectomy (3) Hx of tonsillectomy Family History Cancer Diabetes mellitus Gallbladder disease Hypertension Kidney disease or stones Social History Smoking Status: Current Every Day Smoker Alcohol Use: none Drug Use: heroin Marital Status: Housing Status: lives with family Occupation Status: employed Current/Historical Medications Scheduled Buspirone Hcl (Buspar), 15 MG PO BID Omeprazole (Prilosec), 40 MG PO DAILY Quetiapine Fumarate Xr (Seroquel Xr), 200 MG PO HS Scheduled PRN Methocarbamol (Robaxin), 750 MG PO TID PRN for Muscle Spasm Ondasetron Odt (Zofran Odt), 4-8 MG SL Q8 PRN for Nausea or Vomiting Allergies Coded Allergies: Bupropion (Verified Allergy, Unknown, HIVES, 04/17/17) NSAIDs (Verified Allergy, Unknown, GASTRIC BYPASS, 04/17/17) Hydromorphone (Verified Adverse Reaction, Mild, VOMITING, 04/17/17) Physical Exam Vital Signs Date Time Temp Pulse Resp B/P (MAP) Pulse Ox O2 Delivery O2 Flow Rate FiO2 07/08/17 18:30 78 20 91/75 98 Room Air 07/08/17 17:00 105 20 96/73 96 Room Air 07/08/17 16:53 122 07/08/17 16:19 135 20 153/95 98 Room Air Physical Exam GENERAL: Awake, alert, well-appearing, NAD HENT: Normocephalic, atraumatic. Bite to the right aspect of the tongue. Not through and through. EYES: Normal conjunctiva. Sclera non-icteric. No anisocoria NECK: Supple. No nuchal rigidity. FROM. RESPIRATORY: CTAB, no rhonchi, wheezing, crackles CARDIAC: RRR, no MRG ABDOMEN: Soft, NTND, BS+ MSK: No midline C-spine TTP. No pain to back, abdomen, chest, or upper/lower extremities. NEURO: CN 2-12 intact, 5/5 upper and lower extremity strength, no dysmetria, no drift, good finger to nose, no sensory deficits. SKIN: No rash or jaundice noted. Medical Decision & Procedures ER Provider Diagnostic Interpretation: Radiology results as stated below per my review and radiologist interpretation: HEAD WITHOUT CONTRAST (CT) FINDINGS: Research Laboratory Technician topogram: Unremarkable. Ventricles and sulci normal in size. Brain parenchyma normal in appearance with preserved bronson-white differentiation. No mass effect or midline shift. No hemorrhage or acute territorial infarct. No extra-axial fluid collection. Paranasal sinuses and mastoid air cells clear. Calvarium intact. IMPRESSION: 1. No acute intracranial abnormality. Electronically signed by: Xavier Turpin M.D. 07/08/2017 5:38 PM CHEST ONE VIEW PORTABLE FINDINGS: Cardiomediastinal silhouette normal. Mildly low lung volumes with hypoventilatory changes. No focal opacity. No large effusion or pneumothorax. Osseous structures normal. Cholecystectomy clips noted. IMPRESSION: 1. Mildly low lung volumes with hypoventilatory changes. Otherwise no acute cardiopulmonary disease. Electronically signed by: Xavier Turpin M.D. 07/08/2017 4:47 PM Laboratory Results 07/08/17 16:20 Red Blood Count 4.61, Mean Corpuscular Volume 82.6, Mean Corpuscular Hemoglobin 28.0, Mean Corpuscular Hemoglobin Concent 33.9, Mean Platelet Volume 9.8, Neutrophils (%) (Auto) 41.6, Lymphocytes (%) (Auto) 45.9, Monocytes (%) (Auto) 6.9, Eosinophils (%) (Auto) 5.3, Basophils (%) (Auto) 0.3, Neutrophils # (Auto) 2.73, Lymphocytes # (Auto) 3.01, Monocytes # (Auto) 0.45, Eosinophils # (Auto) 0.35, Basophils # (Auto) 0.02 07/08/17 16:20 Test 07/08/17 16:20 07/08/17 16:40 White Blood Count 6.56 K/uL (4.8-10.8) Red Blood Count 4.61 M/uL (4.2-5.4) Hemoglobin 12.9 g/dL (12.0-16.0) Hematocrit 38.1 % (37-47) Mean Corpuscular Volume 82.6 fL (80-100) Mean Corpuscular Hemoglobin 28.0 pg (25-34) Mean Corpuscular Hemoglobin Concent 33.9 g/dl (32-36) Platelet Count 202 K/uL (130-400) Mean Platelet Volume 9.8 fL (7.4-10.4) Neutrophils (%) (Auto) 41.6 % Lymphocytes (%) (Auto) 45.9 % Monocytes (%) (Auto) 6.9 % Eosinophils (%) (Auto) 5.3 % Basophils (%) (Auto) 0.3 % Neutrophils # (Auto) 2.73 K/uL (1.4-6.5) Lymphocytes # (Auto) 3.01 K/uL (1.2-3.4) Monocytes # (Auto) 0.45 K/uL (0.11-0.59) Eosinophils # (Auto) 0.35 K/uL (0-0.5) Basophils # (Auto) 0.02 K/uL (0-0.2) RDW Standard Deviation 49.0 fL (36.4-46.3) RDW Coefficient of Variation 16.2 % (11.5-14.5) Immature Granulocyte % (Auto) 0.0 % Immature Granulocyte # (Auto) 0.00 K/uL (0.00-0.02) Prothrombin Time 9.9 SECONDS (9.0-12.0) Prothromb Time International Ratio 0.9 (0.9-1.1) Anion Gap 12.0 mmol/L (3-11) Est Creatinine Clear Calc Drug Dose 104.0 ml/min Estimated GFR () 132.1 Estimated GFR (Non- 114.0 BUN/Creatinine Ratio 17.9 (10-20) Lactic Acid Level 5.8 mmol/L (0.4-2.0) Calcium Level 8.3 mg/dl (8.5-10.1) Phosphorus Level 3.3 mg/dl (2.5-4.9) Magnesium Level 2.2 mg/dl (1.8-2.4) Total Bilirubin 0.2 mg/dl (0.2-1) Direct Bilirubin < 0.1 mg/dl (0-0.2) Aspartate Amino Transf (AST/SGOT) 13 U/L (15-37) Alanine Aminotransferase (ALT/SGPT) 17 U/L (12-78) Alkaline Phosphatase 75 U/L (45-117) Total Creatine Kinase 82 U/L (26-192) Total Protein 6.8 gm/dl (6.4-8.2) Albumin 3.5 gm/dl (3.4-5.0) Thyroid Stimulating Hormone (TSH) 1.560 uIu/ml (0.300-4.500) Salicylates Level 15.5 mg/dl (2.8-20) Acetaminophen Level 7 ug/ml (10-30) Ethyl Alcohol mg/dL < 3.0 mg/dl (0-3) Laboratory results reviewed by me Medications Administered Medications (Trade) Dose Ordered Sig/Keven Route Start Time Stop Time Status Last Admin Dose Admin Sodium Chloride 1,000 ml @ 999 mls/hr Q1H1M STAT IV 07/08/17 16:18 07/08/17 17:22 DC 07/08/17 16:48 999 MLS/HR Dextrose (Dextrose 50% 50ML Syringe) 50 ml NOW STAT IV 07/08/17 16:36 07/08/17 16:37 DC 07/08/17 16:48 50 ML Potassium Chloride/Dextrose/ Sod Cl 1,000 ml @ 100 mls/hr Q10H STAT IV 07/08/17 17:27 07/08/17 19:50 DC 07/08/17 18:18 100 MLS/HR Magnesium Oxide (Mag-Ox Tab) 800 mg ONE STAT PO 07/08/17 17:27 07/08/17 17:30 DC 07/08/17 18:17 800 MG Calcium Carbonate (Tums Chew Tab) 1,500 mg ONE STAT PO 07/08/17 17:27 07/08/17 17:30 DC 07/08/17 19:01 1,500 MG Potassium Chloride (Klor-Con M10) 40 meq STK-MED ONCE .ROUTE 07/08/17 18:10 07/08/17 18:11 DC 07/08/17 18:18 40 MEQ ECG Per My Interpretation Indication: other (seizure-like episode) Rate (beats per minute): 122 Rhythm: sinus tachycardia Findings: T-wave inversion (lead 3), other (Normal intervals. Normal axis. No other STS changes or TWI. ) Change: Patient's electrocardiogram interpreted by me. ED Course 1631: The patient was evaluated in room B2. A complete history and physical exam was performed. 1758: Upon reexamination, the patient was resting comfortably. I discussed the test results and treatment plan with her. The patient will be evaluated for further management. Medical Decision The patient is a 36 year old white female with a past medical history of gastric bypass, GERD, and depression who presents to the ED with a cc of an episode of generalized seizure-like activity occurring just prior to arrival. Differential diagnosis: Etiologies such as infection, hypoglycemia, electrolyte abnormalities, cardiac sources, intracerebral event, trauma, toxicologic, neurologic, as well as others were entertained. Patient was seen and evaluated the bedside. Patient does have prior history of gastric bypass and depression. Patient was in the hospital seeing her grandfather which point she apparently had a syncopal episode and questionable seizure-like activity. Doctors in the hospital did respond evaluated the patient. The patient was tachycardic. Patient did have a postictal phase. Patient's blood sugar was in the 60s. Upon exam the patient is fairly well- appearing. Patient is tachycardic but without any symptomatic complaints. Unknown as to if the patient has used heroin recently. He was also concerned that maybe the patient had taken to unknown substances in pill form. Patient did have a CT of the brain, EKG, blood work, and tox screen. Patient's blood sugar was in the 50s. Patient was given an amp of D50. Patient was also given nory crackers, peanut butter, and juice. Repeat blood sugar was greater than 100. Patient was placed on D5 half-normal with potassium chloride. Patient was repleted with potassium, magnesium, and calcium. Also of note the patient did have some tongue biting. Given the patient's new onset seizure with hypoglycemia and the patient was admitted for further evaluation and treatment. Of note upon review of the patient's medications unlikely to cause hypoglycemia. Medication Reconcilliation Current Medication List: was personally reviewed by me Blood Pressure Screening Patient's blood pressure: Elevated blood pressure Blood pressure disposition: Referred to PCP Consults Time Called: 175 Consulting Physician: Dr. Tom Herrera Hospitalist Returned Call: [phone] Discussed the patient's case. The patient will be evaluated for further treatment and disposition. Impression Primary Impression: Seizure Additional Impression: Hypoglycemia Scribe Attestation The scribe's documentation has been prepared under my direction and personally reviewed by me in its entirety. I confirm that the note above accurately reflects all work, treatment, procedures, and medical decision making performed by me. Departure Information Dispostion Being Evaluated By Hospitalist Referrals No Doctor, Assigned (PCP) Problem Qualifiers
--- NOTE | 2017-07-08 18:38 | History and Physical ---
History & Physical Date & Time of Service: Jul 08, 2017 at 18:37 Chief Complaint: Seizure?-Code Purple In Cafe Primary Care Physician: Lorena Zhou PA-C History of Present Illness Source: family (mother /cousin ) This is a 36 yo F with medical hx of gastric bypass surgery , depression , Narcotic /heroin abuse, had episode of syncope followed by Collapse , period of unresponsiveness at [facility] today information obtained form Mother -as pt remained confused , Pt's Grandfather is admitted at [facility] , pt and her mother were in hospital overnight , this morning she was tired , had minimum sleep Pt's cousin noted -she took couple of meds in the morning , including one she took out of rolled wax paper during noon time at the Cafeteria -pt was in the line to pay for her food , suddenly collapsed and fell on the floor , noted to having tremor and shaking , urinary incontinence remained unresponsive for ~3-4 mins , then able to open eyes , mumbling words, sat up with assistance does not recall what happened pt was transported to ER in ER pt was awake and alert , sitting up -very emotional , crying , anxious - saying repeatedly -she does not remember anything and upset as her mother asked her about illegal drug use . No Sz like activity noted, no complain of headache , blurred vision or chest pain no Prior hx of Sz disorder vital remains stable Ct head with out contrast -negative for CVA Past Medical/Surgical History Medical Problems: (1) Depression Status: Chronic (2) GERD (gastroesophageal reflux disease) Status: Chronic Surgical Problems: (1) H/O gastric bypass Status: Resolved (2) History of cholecystectomy Status: Resolved (3) Hx of tonsillectomy Status: Resolved Family History Cancer Diabetes mellitus Gallbladder disease Hypertension Kidney disease or stones Social History Smoking Status: Current Every Day Smoker Drug Use: heroin Marital Status: Housing status: lives with family Occupational Status: employed Immunizations History of Influenza Vaccine: Yes Influenza Vaccine Date: Mar 30, 2005 History of Tetanus Vaccine?: Yes Tetanus Immunization Date: Nov 27, 2001 History of Pneumococcal: No History of Hepatitis B Vaccine: Yes Hepatitis Immunization Date: Nov 27, 2004 Multi-Drug Resistant Organisms History of MDRO: No Allergies Coded Allergies: Bupropion (Verified Allergy, Unknown, HIVES, 04/17/17) NSAIDs (Verified Allergy, Unknown, GASTRIC BYPASS, 04/17/17) Hydromorphone (Verified Adverse Reaction, Mild, VOMITING, 04/17/17) Home Medications Scheduled Buspirone Hcl (Buspar), 15 MG PO BID Omeprazole (Prilosec), 40 MG PO DAILY Quetiapine Fumarate Xr (Seroquel Xr), 200 MG PO HS Scheduled PRN Methocarbamol (Robaxin), 750 MG PO TID PRN for Muscle Spasm Ondasetron Odt (Zofran Odt), 4-8 MG SL Q8 PRN for Nausea or Vomiting Review of Systems Constitutional: + weight loss, + weakness, + fatigue Respiratory: No cough, No sputum, No wheezing, No shortness of breath, No dyspnea on exertion, No dyspnea at rest, No hemoptysis, No problem reported Abdomen: No pain, No nausea, No vomiting, No diarrhea, No constipation, No GI bleeding, No problem reported Musculoskeletal: No joint pain, No muscle pain, No swelling, No calf pain, No problem reported Neurologic: + problem reported (sudden syncope and collapse ) Psychiatric: + depression symptoms, + anxiety, + substance abuse Physical Exam Vital Signs Date Time Temp Pulse Resp B/P (MAP) Pulse Ox O2 Delivery O2 Flow Rate FiO2 07/08/17 16:53 122 07/08/17 16:19 135 20 153/95 98 Room Air General Appearance: + moderate distress (due to anxiety /tearful ) Head: normocephalic, atraumatic Eyes: sclerae normal Neck: thyroid normal, no carotid bruits, trachea midline Respiratory/Chest: chest non-tender, lungs clear, normal breath sounds, no respiratory distress Cardiovascular: no edema, no JVD, normal peripheral pulses, + tachycardia Abdomen/GI: normal bowel sounds, non tender, soft Extremities/Musculoskelatal: normal capillary refill, no pedal edema Neurologic/Psych: no motor/sensory deficits, alert, oriented x 3, + pertinent finding (very anxious , upset as she does not recall any event prior to fall ) Diagnostics Laboratory Results Results Past 24 Hours Test 07/08/17 16:20 07/08/17 16:40 07/08/17 18:25 07/08/17 18:35 Range/Units White Blood Count 6.56 4.8-10.8 K/uL Red Blood Count 4.61 4.2-5.4 M/uL Hemoglobin 12.9 12.0-16.0 g/dL Hematocrit 38.1 37-47 % Mean Corpuscular Volume 82.6 80-100 fL Mean Corpuscular Hemoglobin 28.0 25-34 pg Mean Corpuscular Hemoglobin Concent 33.9 32-36 g/dl Platelet Count 202 130-400 K/uL Mean Platelet Volume 9.8 7.4-10.4 fL Neutrophils (%) (Auto) 41.6 % Lymphocytes (%) (Auto) 45.9 % Monocytes (%) (Auto) 6.9 % Eosinophils (%) (Auto) 5.3 % Basophils (%) (Auto) 0.3 % Neutrophils # (Auto) 2.73 1.4-6.5 K/uL Lymphocytes # (Auto) 3.01 1.2-3.4 K/uL Monocytes # (Auto) 0.45 0.11-0.59 K/uL Eosinophils # (Auto) 0.35 0-0.5 K/uL Basophils # (Auto) 0.02 0-0.2 K/uL RDW Standard Deviation 49.0 36.4-46.3 fL RDW Coefficient of Variation 16.2 11.5-14.5 % Immature Granulocyte % (Auto) 0.0 % Immature Granulocyte # (Auto) 0.00 0.00-0.02 K/uL Sodium Level 140 136-145 mmol/L Potassium Level 3.2 3.5-5.1 mmol/L Chloride Level 107 98-107 mmol/L Carbon Dioxide Level 21 21-32 mmol/L Anion Gap 12.0 3-11 mmol/L Blood Urea Nitrogen 12 7-18 mg/dl Creatinine 0.64 0.60-1.20 mg/dl Est Creatinine Clear Calc Drug Dose 104.0 ml/min Estimated GFR () 132.1 Estimated GFR (Non- 114.0 BUN/Creatinine Ratio 17.9 10-20 Random Glucose 52 70-99 mg/dl Lactic Acid Level 5.8 0.4-2.0 mmol/L Calcium Level 8.3 8.5-10.1 mg/dl Phosphorus Level 3.3 2.5-4.9 mg/dl Magnesium Level 2.2 1.8-2.4 mg/dl Total Bilirubin 0.2 0.2-1 mg/dl Direct Bilirubin < 0.1 0-0.2 mg/dl Aspartate Amino Transf (AST/SGOT) 13 15-37 U/L Alanine Aminotransferase (ALT/SGPT) 17 12-78 U/L Alkaline Phosphatase 75 45-117 U/L Total Protein 6.8 6.4-8.2 gm/dl Albumin 3.5 3.4-5.0 gm/dl Thyroid Stimulating Hormone (TSH) 1.560 0.300-4.500 uIu/ml Salicylates Level 15.5 2.8-20 mg/dl Acetaminophen Level 7 10-30 ug/ml Ethyl Alcohol mg/dL < 3.0 0-3 mg/dl Microbiology Results 07/08/17 Blood Culture, Ordered Pending 07/08/17 Blood Culture, Ordered Pending Diagnostic Radiology HEAD WITHOUT CONTRAST (CT) FINDINGS: Wind Energy Mechanic topogram: Unremarkable. Ventricles and sulci normal in size. Brain parenchyma normal in appearance with preserved bronson-white differentiation. No mass effect or midline shift. No hemorrhage or acute territorial infarct. No extra-axial fluid collection. Paranasal sinuses and mastoid air cells clear. Calvarium intact. IMPRESSION: 1. No acute intracranial abnormality. Electronically signed by: Xavier Turpin M.D. 07/08/2017 5:38 PM CHEST ONE VIEW PORTABLE FINDINGS: Cardiomediastinal silhouette normal. Mildly low lung volumes with hypoventilatory changes. No focal opacity. No large effusion or pneumothorax. Osseous structures normal. Cholecystectomy clips noted. IMPRESSION: 1. Mildly low lung volumes with hypoventilatory changes. Otherwise no acute cardiopulmonary disease. EKG Vent. rate 122 BPM FL interval 126 ms QRS duration 82 ms QT/QTc 324/461 ms P-R-T axes 52 10 25 Sinus tachycardia Possible Left atrial enlargement Borderline ECG When compared with ECG of 31-MAY-2017 02:25, Vent. rate has increased BY 54 BPM Impression Assessment and Plan SYNCOPE /COLLAPSE : not sure of the etiology no cardiac arrhythmia noted on EKG and tele Tremor like activity noted was hypoglycemic BSG in low 50's regained consciousness spontaneously denies of any chest pain /SOB/headache /blurred vision no hypoxia noted monitor in tele , Resting ECHo ordered HX OF DRUG ABUSE : hx of heroine and pain medication addiction urine tox screen ordered IV fluids social service consulted , will benefit with rehab SZ LIKE ACTIVITY no prior hx of Sz brief episode noted while on the floor CT head negative study EEG ordered plan of care D/w Neurology Dr Sanches ELEVATED LACTIC ACID : possible due to recent fall /unresponsiveness no sign of sepsis ordered for IV fluid cultures ordered repeat Lactic acid level ordered DEPRESSION : cont out pt meds FULL CODE DVT PROPHYLAXIS: low risk SCD and teds ambulate DISPOSITION expected to be discharged home when medically stable will benefit with drug rehab Social Service consulted Level of Care Telemetry Resuscitation Status FULL RESUSCITATION VTE Prophylaxis VTE Risk Assessment Done? Y/N: Yes Risk Level: Low Given or contraindicated: T.E.D. Stockings, SCD's
[2017-07-08] MEDS ORDERED: POLYETHYLENE (MIRALAX) 17 GM PACK PO PRN (18:45)
[2017-07-08] MEDS ORDERED: MAGNESIUM HYDROXIDE SUSP 30 ML UDC PO PRN (18:45)
[2017-07-08] MEDS ORDERED: ALUMINUM/MAGNESIUM/SIMETH (MAALOX MAX) 30 ML UDC PO PRN (18:45)
[2017-07-08] MEDS ORDERED: LORAZEPAM 2 MG/ML 1 ML VIAL IV PRN ×2 (18:45)
[2017-07-08] MEDS ORDERED: ONDANSETRON INJ 2 MG/ML 2 ML VIAL IV PRN (18:45)
[2017-07-08] MEDS ORDERED: METHOCARBAMOL 750 MG TAB PO PRN (18:45)
[2017-07-08] MEDS ORDERED: ONDANSETRON 4MG OD TAB SL PRN (18:45)
[2017-07-08 18:46] LABS: INR 0.9 (0.9-1.1)
[2017-07-08] MEDS ORDERED: ACETAMINOPHEN 500 MG TAB PO STA (18:47)
[2017-07-08 19:30] VITALS: BP 105/71; PULSE 75; TEMP 36.6; O2SAT 99; Ht 162.6 cm; Wt 62.7 kg
[2017-07-08] MEDS ORDERED: NICOTINE 21 MG/24 HR TDSY TD ONE (20:15)
[2017-07-08] MEDS: NSS + 20MEQ KCL 1000ML 1,000 ML IV SCH (21:00)
[2017-07-08] MEDS: QUETIAPINE FUMARATE 200 MG TABCR PO SCH (21:09)
[2017-07-08] MEDS: BusPIRone 15 MG TAB PO SCH (21:09)
[2017-07-08] MEDS ORDERED: IV FLUIDS COMPLETED PRN (21:30)
[2017-07-09 00:32] VITALS: BP 91/52; PULSE 64; TEMP 36.9; O2SAT 96
[2017-07-09] MEDS: NSS + 20MEQ KCL 1000ML 1,000 ML IV SCH ×3 (04:00→20:43)
[2017-07-09 04:45] VITALS: BP 116/72; PULSE 72; TEMP 37; O2SAT 96
[2017-07-09 06:45] LABS: HEMOGLOBIN A1C 5.7 % (4.5-5.6)
[2017-07-09 06:52] LABS: HEMATOCRIT 33.6 % (37-47); MEAN CORPUSCULAR HEMOGLOBIN 27.5 pg (25-34); MEAN CORPUSCULAR HGB CONC 32.7 g/dl (32-36); MEAN PLATELET VOLUME 10.1 fL (7.4-10.4); PLATELET COUNT 136 K/uL (130-400); RED CELL DISTRIBUTION WIDTH CV 16.4 % (11.5-14.5); RED CELL DISTRIBUTION WIDTH SD 50.3 fL (36.4-46.3)
[2017-07-09 07:31] LABS: BLOOD UREA NITROGEN 9 mg/dl (7-18); CALCIUM 8.1 mg/dl (8.5-10.1); CARBON DIOXIDE 26 mmol/L (21-32); CHOLESTEROL 107 mg/dl (0-200); CREATININE 0.49 mg/dl (0.60-1.20); GLUCOSE 75 mg/dl (70-99); POTASSIUM 4.3 mmol/L (3.5-5.1); SODIUM 144 mmol/L (136-145)
[2017-07-09 07:33] LABS: LDL CHOLESTEROL CALCULATED 51 mg/dl
[2017-07-09] MEDS: NICOTINE 21 MG/24 HR TDSY TD SCH (07:50)
[2017-07-09] MEDS: BusPIRone 15 MG TAB PO SCH ×2 (07:50→20:42)
[2017-07-09] MEDS: PANTOprazole SOD 40 MG TAB PO SCH (07:50)
[2017-07-09] MEDS: ACETAMINOPHEN 325 MG TAB PO PRN ×2 (07:57→20:43)
[2017-07-09 08:00] VITALS: BP 101/68; PULSE 59; TEMP 36.7; O2SAT 95
--- NOTE | 2017-07-09 11:40 | ECHOCARDIOGRAM REPORT ---
*NOTICE TO RECEIVING [employer]Y This information is strictly Confidential and protected under [place] law. [place] law prohibits you from making any further disclosure of this information unless further disclosure is expressly permitted by the written consent of the person to whom it pertains or is authorized by law. A general authorization for the release of medical or other information is not sufficient for this purpose. Hospital accepts no responsibility if the information is made available to any other person, INCLUDING THE PATIENT. Interpretation Summary * Name: NICA PEÑA Study Date: 07/09/2017 07:09 AM BP: 116/72 mmHg * Patient Location: C.2T\S\S239\S\2 HR: 72 * : 1980 (M/d/yyyy) Gender: Female Height: 64 in * Age: 36 yrs Ethnicity: CA Weight: 136 lb * Ordering Physician: Amna Santos * Referring Physician: Self, Referred * Performed By: Kane Ventura RCS * * Reason For Study: Syncope * BSA: 1.7 m2 * Normal transthoracic echocardiogram. * -- Conclusions -- * The left ventricle is normal in size. * There is normal left ventricular wall thickness. * Left ventricular systolic function is normal. * The left ventricular wall motion is normal. * Ejection Fraction = 60-65%. * The aortic root is normal size. * There is no valvular disease Procedure Details * A complete two-dimensional transthoracic echocardiogram was performed (2D, M-mode, Doppler and color flow Doppler). Left Ventricle * The left ventricle is normal in size. * There is normal left ventricular wall thickness. * Ejection Fraction = 60-65%. * Left ventricular systolic function is normal. * The left ventricular wall motion is normal. Right Ventricle * The right ventricle is normal in size and function. Atria * The left atrial size is normal. * Right atrial size is normal. * No ASD detected; PFO is not assessed. Mitral Valve * The mitral valve anatomy is normal. * There is no mitral valve stenosis. * There is trace mitral regurgitation. Tricuspid Valve * The tricuspid valve anatomy is normal. * There is no tricuspid stenosis. * There is trace tricuspid regurgitation. * Doppler findings do not suggest pulmonary hypertension. Aortic Valve * The aortic valve is trileaflet. * No hemodynamically significant valvular aortic stenosis. * No aortic regurgitation is present. Pulmonic Valve * The pulmonic valve is not well visualized. * There is no pulmonic valvular stenosis. * There is no pulmonic valvular regurgitation. Great Vessels * The aortic root is normal size. Pericardium/Pleural * There is no pericardial effusion. Great Vessels * Normal inferior vena cava diameter and respiratory variation suggests normal central venous pressure. MMode 2D Measurements and Calculations IVSd 0.97 cm IVSs 1.2 cm LVIDd 4.1 cm LVIDs 2.6 cm LVPWd 1.0 cm LVPWs 1.2 cm IVS/LVPW 0.94 FS 37.3 % EDV(Teich) 75.7 ml ESV(Teich) 24.4 ml EF(Teich) 67.7 % EDV(cubed) 70.6 ml ESV(cubed) 17.4 ml EF(cubed) 75.3 % % IVS thick 26.0 % % LVPW thick 15.9 % LV mass(C)d 135.2 grams LV mass(C)dI 81.4 grams/m\S\2 LV mass(C)s 91.7 grams LV mass(C)sI 55.3 grams/m\S\2 SV(Teich) 51.2 ml SI(Teich) 30.8 ml/m\S\2 SV(cubed) 53.2 ml SI(cubed) 32.0 ml/m\S\2 Ao root diam 3.3 cm Ao root area 8.3 cm\S\2 ACS 1.4 cm LA dimension 3.0 cm asc Aorta Diam 3.0 cm LA/Ao 0.92 EDV(MOD-sp4) 97.0 ml ESV(MOD-sp4) 79.0 ml EF(MOD-sp4) 18.6 % EDV(MOD-sp2) 103.0 ml ESV(MOD-sp2) 35.0 ml EF(MOD-sp2) 66.0 % SV(MOD-sp4) 18.0 ml SI(MOD-sp4) 10.8 ml/m\S\2 SV(MOD-sp2) 68.0 ml SI(MOD-sp2) 41.0 ml/m\S\2 Doppler Measurements and Calculations MV E max steven 97.9 cm/sec MV A max steven 63.8 cm/sec MV E/A 1.5 MV P1/2t max steven 133.9 cm/sec MV P1/2t 68.8 msec MVA(P1/2t) 3.2 cm\S\2 MV dec slope 570.3 cm/sec\S\2 MV dec time 0.23 sec Ao V2 max 138.0 cm/sec Ao max PG 7.6 mmHg Ao max PG (full) 3.3 mmHg LV V1 max PG 4.3 mmHg LV V1 max 103.5 cm/sec PA V2 max 72.8 cm/sec PA max PG 2.1 mmHg TR max steven 200.5 cm/sec
[2017-07-09 12:00] VITALS: BP 115/76; PULSE 83; TEMP 36.8; O2SAT 97
--- NOTE | 2017-07-09 14:23 | ELECTROENCEPHALOGRAPH REPORT ---
REQUESTING PHYSICIAN: Dr. Santos. CLINICAL DIAGNOSIS: Syncope, possible seizures. ELECTROENCEPHALOGRAM DIAGNOSIS: Essentially normal during wakefulness. DESCRIPTION OF TRACING: This EEG was done as a bedside recording and was of good technical quality with few or no muscle or movement artifacts. Photic stimulation was performed. Drowsiness and light sleep were not recorded. During wakefulness, there is evidence for a normal appearing background rhythm in the alpha range of up to 9-10 Hz of maximum frequency and 30 microvolts of maximum amplitude. This is maximum posterior head regions bilaterally symmetrical. Polymorphic mid frequency theta activity is seen over all head regions without clear focal or regional predominance. Anterior head region maximum bilaterally symmetrical low voltage fast activity in the beta range is present. Episodes of brief duration of drowsiness is recorded early on the recording, but are not seen later and during the brief interval of time, no abnormal activations occur. At no time during the waking tracing is there evidence for a clearcut potentially epileptogenic activity in the form of polyspike or spike wave bursts, focal sharp waves or focal spikes. INTERPRETATION: This electroencephalography is essentially normal during wakefulness without evidence for focal or generalized encephalopathy and without evidence for potentially epileptogenic activity. The absence of the latter; however, does not exclude the diagnosis of a seizure disorder and clinical correlation is required.
--- NOTE | 2017-07-09 14:43 | Neurology Consultation ---
Neurology Consultation Date of Consultation: Jul 09, 2017. Attending Physician: Diony Rahman M.D. Primary Care Physician: Lorena Zhou PA-C Reason for Consultation: seizure activity/syncope History of Present Illness Source: patient Leslie is a 36 year old female with PMH gastric bypass surgery , depression , Narcotic /heroin abuse. She was visiting her grandfather in the hospital and was getting something to eat in the cafe when she became confused she felt dizzy and LOC. According to report she did have some tremor and shaking, urinary incontinence and bit her tongue on the right. she was unresponsive for 3 -4 minutes she was awake but mumbling her words and didn't remember the occurrence. She states when she woke in the ED she was unsure where she was or why she was at the hospital. She has no history of seizure disorder and no family history she is aware of. She did start remembering things in the ED but in the room she felt she was back to baseline. no family is currently in the room. She has been sleep deprived because her grandfather is in the hospital and they didn't think he was going to live. She has a history of drug abuse but is in recovery. denies CP, SOB, abdominal pain, weakness, numbness tingling, flushing, N, V. She did say she ate 2 hours prior to the episode. Past Medical/Surgical History Medical Problems: (1) Acute gastroenteritis Status: Acute (2) Anxiety Status: Acute (3) Dental caries Status: Acute (4) Epigastric abdominal pain Status: Acute (5) Fracture of coccyx Status: Acute (6) Heroin abuse Status: Acute (7) Hypoglycemia Status: Acute (8) Nausea, vomiting, and diarrhea Status: Acute (9) Pain, dental Status: Acute (10) Seizure Status: Acute Social History Smoking Status: Current every day smoker Smokeless Tobacco Use: No Alcohol Use: none Drug Use: heroin, other (recovering) Marital Status: Housing Status: lives with family Occupation Status: employed Allergies Coded Allergies: Bupropion (Verified Allergy, Unknown, HIVES, 04/17/17) NSAIDs (Verified Allergy, Unknown, GASTRIC BYPASS, 04/17/17) Hydromorphone (Verified Adverse Reaction, Mild, VOMITING, 04/17/17) Current Inpatient Medications Current Inpatient Medications Medications (Trade) Dose Ordered Sig/Keven Route Start Time Stop Time Status Last Admin Dose Admin Potassium Chloride/Sodium Chloride 1,000 ml @ 125 mls/hr Q8H IV 07/08/17 20:00 08/07/17 18:29 07/09/17 12:29 125 MLS/HR Buspirone HCl (BusPAR TAB) 15 mg BID PO 07/08/17 21:00 08/07/17 20:59 07/09/17 07:50 15 MG Methocarbamol (Robaxin Tab) 750 mg TID PRN PO 07/08/17 18:45 08/07/17 18:44 Ondansetron HCl (Zofran Odt) 4 mg Q8 PRN SL 07/08/17 18:45 08/07/17 18:44 Quetiapine Fumarate (seroQUEL XR TAB) 200 mg HS PO 07/08/17 21:00 08/07/17 20:59 07/08/17 21:09 200 MG Pantoprazole Sodium (Protonix Tab) 40 mg DAILY PO 07/09/17 09:00 08/08/17 08:59 07/09/17 07:50 40 MG Lorazepam (Ativan Inj) 1 mg Q15M PRN IV 07/08/17 18:45 08/07/17 18:44 Acetaminophen (Tylenol Tab) 650 mg Q4H PRN PO 07/08/17 18:45 08/07/17 18:44 07/09/17 07:57 650 MG Al Hydrox/Mg Hydrox/Simethicone (Maalox Max Susp) 15 ml Q4H PRN PO 07/08/17 18:45 08/07/17 18:44 Magnesium Hydroxide (Milk Of Magnesia Susp) 30 ml Q12H PRN PO 07/08/17 18:45 08/07/17 18:44 Ondansetron HCl (Zofran Inj) 4 mg Q6H PRN IV 07/08/17 18:45 08/07/17 18:44 Polyethylene (Miralax Powder Packet) 17 gm DAILY PRN PO 07/08/17 18:45 08/07/17 18:44 Nicotine (Nicoderm Cq 21MG Patch) 1 patch QAM TD 07/09/17 09:00 08/08/17 08:59 07/09/17 07:50 1 PATCH Miscellaneous (Remove Nicoderm Patch) 1 ea HS N/A 07/09/17 08:59 08/08/17 08:58 07/09/17 07:50 1 EA Miscellaneous (Iv Fluids Completed) 1 ea PRN PRN N/A 07/08/17 21:30 07/08/18 21:29 Physical Exam Vital Signs (Past 24 Hrs): Date Time Temp Pulse Resp B/P (MAP) Pulse Ox O2 Delivery O2 Flow Rate FiO2 07/09/17 12:00 Room Air 07/09/17 12:00 36.8 83 18 115/76 (89) 97 Room Air 07/09/17 08:00 Room Air 07/09/17 08:00 36.7 59 16 101/68 (79) 95 Room Air 07/09/17 04:45 37.0 72 18 116/72 (87) 96 07/09/17 04:00 Room Air 07/09/17 00:32 36.9 64 16 91/52 (65) 96 07/08/17 23:59 Room Air 07/08/17 19:30 36.6 75 18 105/71 99 Room Air 07/08/17 18:30 78 20 91/75 98 Room Air 07/08/17 17:00 105 20 96/73 96 Room Air 07/08/17 16:53 122 07/08/17 16:19 135 20 153/95 98 Room Air Physical Exam: Constitutional: appearance nourished, healthy and normal Ears, Nose, Mouth and Throat: mucous membranes moist, no injection and skin normal, eyes normal, tongue laceration right side Cardiovascular: normal S-1 and S-2 and regular rate and rhythm Respiratory: clear to auscultation (CTA) and no rales, rhonchi or wheeze Musculoskeletal: no peripheral edema and good distal pulses Skin: no stigmata of neurocutaneous disease noted and normal and intact Eyes: extraocular muscles intact (EOMI) and pupils equal, round and reactive to light (PERRL) NEUROLOGIC EXAMINATION: Mental status: Alert and interactive Oriented to full date and location Oriented to person Speech fluent with no evidence of aphasia Cranial Nerves smile eye brow raise symmetric Reflexes: Deep tendon reflexes were symmetrical and graded 2/5. Plantar responses were flexor. Sensory: no sensory deficits, to vibration cool and light touch Coordination: Romberg absent Gait/Stance: Posture normal. Gait normal: with steady with steps, base, turning and tandem gait. Motor: Negative for pronator drift of out stretched arms with eyes closed. 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 intrinsics bilaterally 5/5, hip flex plantar flex ext 5 /5 bilaterally Laboratory Results Past 24 Hours: 07/09/17 06:35 07/09/17 06:35 Test 07/08/17 16:20 07/08/17 16:40 07/09/17 00:25 07/09/17 06:35 Immature Granulocyte % (Auto) 0.0 % White Blood Count 6.56 K/uL (4.8-10.8) Red Blood Count 4.61 M/uL (4.2-5.4) 4.00 M/uL (4.2-5.4) Hemoglobin 12.9 g/dL (12.0-16.0) Hematocrit 38.1 % (37-47) Mean Corpuscular Volume 82.6 fL (80-100) 84.0 fL (80-100) Mean Corpuscular Hemoglobin 28.0 pg (25-34) 27.5 pg (25-34) Mean Corpuscular Hemoglobin Concent 33.9 g/dl (32-36) 32.7 g/dl (32-36) Platelet Count 202 K/uL (130-400) Mean Platelet Volume 9.8 fL (7.4-10.4) 10.1 fL (7.4-10.4) Neutrophils (%) (Auto) 41.6 % Lymphocytes (%) (Auto) 45.9 % Monocytes (%) (Auto) 6.9 % Eosinophils (%) (Auto) 5.3 % Basophils (%) (Auto) 0.3 % Neutrophils # (Auto) 2.73 K/uL (1.4-6.5) Lymphocytes # (Auto) 3.01 K/uL (1.2-3.4) Monocytes # (Auto) 0.45 K/uL (0.11-0.59) Eosinophils # (Auto) 0.35 K/uL (0-0.5) Basophils # (Auto) 0.02 K/uL (0-0.2) Immature Granulocyte # (Auto) 0.00 K/uL (0.00-0.02) Prothrombin Time 9.9 SECONDS (9.0-12.0) Prothromb Time International Ratio 0.9 (0.9-1.1) Estimated Average Glucose 117 mg/dl Hemoglobin A1c 5.7 % (4.5-5.6) Phosphorus Level 3.3 mg/dl (2.5-4.9) Total Bilirubin 0.2 mg/dl (0.2-1) Direct Bilirubin < 0.1 mg/dl (0-0.2) Aspartate Amino Transf (AST/SGOT) 13 U/L (15-37) Alanine Aminotransferase (ALT/SGPT) 17 U/L (12-78) Alkaline Phosphatase 75 U/L (45-117) Total Creatine Kinase 82 U/L (26-192) Total Protein 6.8 gm/dl (6.4-8.2) Albumin 3.5 gm/dl (3.4-5.0) Thyroid Stimulating Hormone (TSH) 1.560 uIu/ml (0.300-4.500) Salicylates Level 15.5 mg/dl (2.8-20) Acetaminophen Level 7 ug/ml (10-30) Ethyl Alcohol mg/dL < 3.0 mg/dl (0-3) Urine Color YELLOW Urine Appearance CLEAR (CLEAR) Urine pH 7.0 (4.5-7.5) Urine Specific [place] 1.010 (1.000-1.030) Urine Protein NEG (NEG) Urine Glucose (UA) NEG (NEG) Urine Ketones NEG (NEG) Urine Occult Blood NEG (NEG) Urine Nitrite NEG (NEG) Urine Bilirubin NEG (NEG) Urine Urobilinogen NEG (NEG) Urine Leukocyte Esterase NEG (NEG) Urine Test NEG (NEG) Urine Opiates Screen NEG (NEG) Urine Methadone, Qualitative NEG (NEG) Urine Barbiturates NEG (NEG) Urine Phencyclidine (PCP) Level NEG (NEG) Ur Amphetamine/Methamphetamine NEG (NEG) MDMA (Ecstasy) Screen NEG (NEG) Urine Benzodiazepines Screen NEG (NEG) Urine Cocaine Metabolite NEG (NEG) Urine Marijuana (THC) NEG (NEG) RDW Standard Deviation 50.3 fL (36.4-46.3) RDW Coefficient of Variation 16.4 % (11.5-14.5) Anion Gap 5.0 mmol/L (3-11) Est Creatinine Clear Calc Drug Dose 135.8 ml/min Estimated GFR () 144.3 Estimated GFR (Non- 124.5 BUN/Creatinine Ratio 17.5 (10-20) Lactic Acid Level 0.7 mmol/L (0.4-2.0) Calcium Level 8.1 mg/dl (8.5-10.1) Magnesium Level 2.4 mg/dl (1.8-2.4) Triglycerides Level 61 mg/dl (0-150) Cholesterol Level 107 mg/dl (0-200) HDL Cholesterol 44 mg/dl LDL Cholesterol, Calculated 51 mg/dl VLDL Cholesterol, Calculated 12 mg/dl Cholesterol/HDL Ratio 2.4 Test 07/09/17 11:25 07/09/17 12:41 Bedside Glucose 98 mg/dl (70-90) Troponin I < 0.015 ng/ml (0-0.045) Imaging CT head- No acute intracranial abnormality. EEG - INTERPRETATION: This electroencephalography is essentially normal during wakefulness without evidence for focal or generalized encephalopathy and without evidence for potentially epileptogenic activity. The absence of the latter; however, does not exclude the diagnosis of a seizure disorder and clinical correlation is required. TTE- The left ventricle is normal in size. * There is normal left ventricular wall thickness. * Left ventricular systolic function is normal. * The left ventricular wall motion is normal. * Ejection Fraction = 60-65%. * The aortic root is normal size. * There is no valvular disease NO ASD Impression 36 year old female s/p fall and seizure like activity Plan 1. CT with no acute findings 2. TTE - no ASD 3. carotid study - ordered 4. MRI combo brain seizure protocol -ordered 5. seizure precautions 6. fall precautions 7. no driving for 6 months seizure free 8. no bathing or swimming alone, no heights 9. further recommendations to follow I have seen and discussed above patient with Dr Maribeth Garcia, neurology PT seen and examined, likely sz no med or etoh withdrawal, protracted for syncope, witnessed sz post ictal amnesia and confusion THOMAS neg,Would not treat at present, risk of recurrence explained to pt.Sz and safety given spell advised. ELY Garcia MD
--- NOTE | 2017-07-09 15:38 | Progress Note ---
Medicine Progress Note Date & Time of Visit: Jul 09, 2017 at 15:26. Subjective Pt was seen and examined Lying in bed with no distress She just woke up from sleep She said that she feels tired She said that she was restlessness Denies any chest pain, palpitation, dizziness and SOB Objective Last 8 Hrs Date Time Temp Pulse Resp B/P (MAP) Pulse Ox O2 Delivery O2 Flow Rate FiO2 07/09/17 12:00 Room Air 07/09/17 12:00 36.8 83 18 115/76 (89) 97 Room Air 07/09/17 08:00 Room Air 07/09/17 08:00 36.7 59 16 101/68 (79) 95 Room Air Physical Exam: General- No acute distress Head- atraumatic Eyes- PERRL, EOMI ENT- oropharynx clear Neck- supple, no JVD Lungs- No wheezing Heart- regular rhythm Abdomen- normal bowel sounds, soft Extremities- no pretibial edema, no calf tenderness Neuro- alert, oriented x 3; PERRL, EOMI; no facial palsy Skin- warm & dry Laboratory Results: Last 24 Hours Test 07/08/17 16:20 07/08/17 16:40 07/08/17 17:13 07/09/17 00:19 White Blood Count 6.56 K/uL Red Blood Count 4.61 M/uL Hemoglobin 12.9 g/dL Hematocrit 38.1 % Mean Corpuscular Volume 82.6 fL Mean Corpuscular Hemoglobin 28.0 pg Mean Corpuscular Hemoglobin Concent 33.9 g/dl Platelet Count 202 K/uL Mean Platelet Volume 9.8 fL Neutrophils (%) (Auto) 41.6 % Lymphocytes (%) (Auto) 45.9 % Monocytes (%) (Auto) 6.9 % Eosinophils (%) (Auto) 5.3 % Basophils (%) (Auto) 0.3 % Neutrophils # (Auto) 2.73 K/uL Lymphocytes # (Auto) 3.01 K/uL Monocytes # (Auto) 0.45 K/uL Eosinophils # (Auto) 0.35 K/uL Basophils # (Auto) 0.02 K/uL RDW Standard Deviation 49.0 fL RDW Coefficient of Variation 16.2 % Immature Granulocyte % (Auto) 0.0 % Immature Granulocyte # (Auto) 0.00 K/uL Prothrombin Time 9.9 SECONDS Prothromb Time International Ratio 0.9 Sodium Level 140 mmol/L Potassium Level 3.2 mmol/L Chloride Level 107 mmol/L Carbon Dioxide Level 21 mmol/L Anion Gap 12.0 mmol/L Blood Urea Nitrogen 12 mg/dl Creatinine 0.64 mg/dl Est Creatinine Clear Calc Drug Dose 104.0 ml/min Estimated GFR () 132.1 Estimated GFR (Non- 114.0 BUN/Creatinine Ratio 17.9 Random Glucose 52 mg/dl Estimated Average Glucose 117 mg/dl Hemoglobin A1c 5.7 % Lactic Acid Level 5.8 mmol/L Calcium Level 8.3 mg/dl Phosphorus Level 3.3 mg/dl Magnesium Level 2.2 mg/dl Total Bilirubin 0.2 mg/dl Direct Bilirubin < 0.1 mg/dl Aspartate Amino Transf (AST/SGOT) 13 U/L Alanine Aminotransferase (ALT/SGPT) 17 U/L Alkaline Phosphatase 75 U/L Total Creatine Kinase 82 U/L Total Protein 6.8 gm/dl Albumin 3.5 gm/dl Thyroid Stimulating Hormone (TSH) 1.560 uIu/ml Salicylates Level 15.5 mg/dl Acetaminophen Level 7 ug/ml Ethyl Alcohol mg/dL < 3.0 mg/dl Bedside Glucose 140 mg/dl Troponin I < 0.015 ng/ml Test 07/09/17 00:25 07/09/17 06:35 07/09/17 11:25 07/09/17 12:41 Urine Color YELLOW Urine Appearance CLEAR Urine pH 7.0 Urine Specific [place] 1.010 Urine Protein NEG Urine Glucose (UA) NEG Urine Ketones NEG Urine Occult Blood NEG Urine Nitrite NEG Urine Bilirubin NEG Urine Urobilinogen NEG Urine Leukocyte Esterase NEG Urine Test NEG Urine Opiates Screen NEG Urine Methadone, Qualitative NEG Urine Barbiturates NEG Urine Phencyclidine (PCP) Level NEG Ur Amphetamine/Methamphetamine NEG MDMA (Ecstasy) Screen NEG Urine Benzodiazepines Screen NEG Urine Cocaine Metabolite NEG Urine Marijuana (THC) NEG White Blood Count 3.20 K/uL Red Blood Count 4.00 M/uL Hemoglobin 11.0 g/dL Hematocrit 33.6 % Mean Corpuscular Volume 84.0 fL Mean Corpuscular Hemoglobin 27.5 pg Mean Corpuscular Hemoglobin Concent 32.7 g/dl RDW Standard Deviation 50.3 fL RDW Coefficient of Variation 16.4 % Platelet Count 136 K/uL Mean Platelet Volume 10.1 fL Sodium Level 144 mmol/L Potassium Level 4.3 mmol/L Chloride Level 114 mmol/L Carbon Dioxide Level 26 mmol/L Anion Gap 5.0 mmol/L Blood Urea Nitrogen 9 mg/dl Creatinine 0.49 mg/dl Est Creatinine Clear Calc Drug Dose 135.8 ml/min Estimated GFR () 144.3 Estimated GFR (Non- 124.5 BUN/Creatinine Ratio 17.5 Random Glucose 75 mg/dl Lactic Acid Level 0.7 mmol/L Calcium Level 8.1 mg/dl Magnesium Level 2.4 mg/dl Troponin I < 0.015 ng/ml < 0.015 ng/ml Triglycerides Level 61 mg/dl Cholesterol Level 107 mg/dl HDL Cholesterol 44 mg/dl LDL Cholesterol, Calculated 51 mg/dl VLDL Cholesterol, Calculated 12 mg/dl Cholesterol/HDL Ratio 2.4 Bedside Glucose 98 mg/dl Date/Time Source Procedure Growth Status 07/08/17 18:43 Blood Blood Culture Pending Received 07/08/17 18:33 Blood Blood Culture Pending Received Assessment & Plan SYNCOPE /COLLAPSE Etiology unknown Maybe related to seizure CT head showed no intracranial abnormality no arrhythmia on tele monitor ECHO showed no wall abnormality Neuro on board Plan to get MRI of the Head and carotid Doppler of the neck HX OF DRUG ABUSE hx of heroine and pain medication addiction UDS negative Received IVF Consider drug rehab SEIZURE LIKE ACTIVITY no prior hx of Sz CT head negative study EEG showed no evidence for focal or generalized encephalopathy and without evidence for potentially epileptogenic activity. Fall precaution and Seizure precaution Neuro on board ELEVATED LACTIC ACID : possible due to recent fall /unresponsiveness No signs of infection Lactic acid back to normal DEPRESSION : Stable FULL CODE DVT PROPHYLAXIS: low risk SCD and teds ambulate Disposition Will discharge home once stable Consultants: Neuro Current Inpatient Medications: Current Inpatient Medications Medications (Trade) Dose Ordered Sig/Keven Route Start Time Stop Time Status Last Admin Dose Admin Potassium Chloride/Sodium Chloride 1,000 ml @ 125 mls/hr Q8H IV 07/08/17 20:00 08/07/17 18:29 07/09/17 12:29 125 MLS/HR Buspirone HCl (BusPAR TAB) 15 mg BID PO 07/08/17 21:00 08/07/17 20:59 07/09/17 07:50 15 MG Methocarbamol (Robaxin Tab) 750 mg TID PRN PO 07/08/17 18:45 08/07/17 18:44 Ondansetron HCl (Zofran Odt) 4 mg Q8 PRN SL 07/08/17 18:45 08/07/17 18:44 Quetiapine Fumarate (seroQUEL XR TAB) 200 mg HS PO 07/08/17 21:00 08/07/17 20:59 07/08/17 21:09 200 MG Pantoprazole Sodium (Protonix Tab) 40 mg DAILY PO 07/09/17 09:00 08/08/17 08:59 07/09/17 07:50 40 MG Lorazepam (Ativan Inj) 1 mg Q15M PRN IV 07/08/17 18:45 08/07/17 18:44 Acetaminophen (Tylenol Tab) 650 mg Q4H PRN PO 07/08/17 18:45 08/07/17 18:44 07/09/17 07:57 650 MG Al Hydrox/Mg Hydrox/Simethicone (Maalox Max Susp) 15 ml Q4H PRN PO 07/08/17 18:45 08/07/17 18:44 Magnesium Hydroxide (Milk Of Magnesia Susp) 30 ml Q12H PRN PO 07/08/17 18:45 08/07/17 18:44 Ondansetron HCl (Zofran Inj) 4 mg Q6H PRN IV 07/08/17 18:45 08/07/17 18:44 Polyethylene (Miralax Powder Packet) 17 gm DAILY PRN PO 07/08/17 18:45 08/07/17 18:44 Nicotine (Nicoderm Cq 21MG Patch) 1 patch QAM TD 07/09/17 09:00 08/08/17 08:59 07/09/17 07:50 1 PATCH Miscellaneous (Remove Nicoderm Patch) 1 ea HS N/A 07/09/17 08:59 08/08/17 08:58 07/09/17 07:50 1 EA Miscellaneous (Iv Fluids Completed) 1 ea PRN PRN N/A 07/08/17 21:30 07/08/18 21:29
[2017-07-09] MEDS ORDERED: GADAVIST IV PRN (16:00)
--- NOTE | 2017-07-09 16:01 | DIAGNOSTIC IMAGING REPORT ---
BRAIN COMBO FOR SEIZURE HISTORY: 36 years-old Female LOC /post ictal no seizure history acute seizure on 07/08/2017 COMPARISON: Head CT 07/08/2017 TECHNIQUE: Multiplanar multisequence MRI of the brain was obtained both with and without the use of 6 mL Gadavist utilizing seizure protocol FINDINGS: The large [id number] ring striker localizer images demonstrate no gross abnormality. There is no restricted diffusion to suggest acute infarction. The midline structures including the corpus callosum, brainstem, optic chiasm, infundibulum, pituitary and pineal glands appear unremarkable on the sagittal T1 images. No cerebellar tonsillar herniation. No acute intracranial hemorrhage, midline shift, abnormal extra-axial collections or hydrocephalus. No cortical dysplasia or seizure focus identified. No evidence of mesial temporal sclerosis. No focal signal abnormalities of the brain parenchyma identified. There is no abnormal intra-axial or extra-axial enhancement identified. The major flow voids at the level of the skull base appear patent. Mastoid air cells demonstrate minimal fluid. Minimal ethmoid sinus disease. Hypoplasia of the left frontal sinus. Orbits are unremarkable. Scalp, calvarium and soft tissues are within normal limits. IMPRESSION: 1. No acute intracranial abnormality identified. 2. No abnormal enhancement or seizure focus identified. 3. No evidence of mesial temporal sclerosis. The above report was generated using voice recognition software. It may contain grammatical, syntax or spelling errors. Electronically signed by: Keyshawn Paytno M.D. 07/09/2017 4:00 PM Dictated Date/Time: 07/09/2017 3:52 PM
--- NOTE | 2017-07-09 16:41 | DIAGNOSTIC IMAGING REPORT ---
ADDENDUM Note is made of vascular flow of the left vertebral is reversed. Possibly of a left subclavian steal is considered. Dampened flow characteristics within the left subclavian artery. Electronically signed by: Markell Enciso M.D. 07/10/2017 9:38 AM Dictated Date/Time: 07/10/2017 9:37 AM ORIGINAL REPORT CAROTID DOPPLER NECK ART HISTORY: Mental status change syncope episode COMPARISON: None. TECHNIQUE: Real-time, grayscale, and color Doppler sonography of the carotid arteries was performed. Imaging reviewed in the transverse and longitudinal planes. All measurements were calculated based on NASCET criteria. FINDINGS: Antegrade flow is seen in the bilateral vertebral arteries. The brachial pressures are hemodynamically similar. Mild plaque formation bilaterally The peak systolic velocity within the right ICA is 79. The right systolic ratio is 1.0. The peak systolic velocity within the left ICA is 70. The left systolic ratio is 0.8. IMPRESSION: No hemodynamically significant stenosis seen within the carotid arteries. The above report was generated using voice recognition software. It may contain grammatical, syntax or spelling errors. Electronically signed by: Markell Enciso M.D. 07/09/2017 4:40 PM Dictated Date/Time: 07/09/2017 4:38 PM
[2017-07-09 19:45] VITALS: BP 94/62; PULSE 85; TEMP 36.9; O2SAT 98
[2017-07-09] MEDS: QUETIAPINE FUMARATE 200 MG TABCR PO SCH (20:42)
[2017-07-09 23:57] VITALS: BP 89/61; PULSE 50; TEMP 36.7; O2SAT 97
[2017-07-10 03:43] VITALS: BP 84/54; PULSE 58; TEMP 36.5; O2SAT 94
[2017-07-10] MEDS: NSS + 20MEQ KCL 1000ML 1,000 ML IV SCH (06:28)
[2017-07-10 07:10] LABS: CREATININE 0.48 mg/dl (0.60-1.20); POTASSIUM 4.2 mmol/L (3.5-5.1)
[2017-07-10 08:00] VITALS: BP 107/69; PULSE 70; TEMP 37; O2SAT 70
[2017-07-10] MEDS: NICOTINE 21 MG/24 HR TDSY TD SCH (08:20)
[2017-07-10] MEDS: PANTOprazole SOD 40 MG TAB PO SCH (08:20)
[2017-07-10] MEDS: BusPIRone 15 MG TAB PO SCH (08:20)
[2017-07-10 12:08] VITALS: BP 98/60; PULSE 76; TEMP 36.2; O2SAT 98
--- NOTE | 2017-07-10 12:28 | Progress Note ---
Medicine Progress Note Date & Time of Visit: Jul 10, 2017 at 12:19. Subjective Pt was seen and examined Lying in bed with no distress Pt said that she did not slept well last night No syncopal or seizure like activity Denies any chest pain, palpitation, dizziness and SOB Objective Last 8 Hrs Date Time Temp Pulse Resp B/P (MAP) Pulse Ox O2 Delivery O2 Flow Rate FiO2 07/10/17 12:08 36.2 76 18 98/60 (73) 98 Room Air 07/10/17 08:00 Room Air 07/10/17 08:00 37.0 70 16 107/69 (82) 70 Room Air Physical Exam: General- No acute distress Head- atraumatic Eyes- PERRL, EOMI ENT- oropharynx clear Neck- supple, no JVD Lungs- No wheezing Heart- regular rhythm Abdomen- normal bowel sounds, soft Extremities- no pretibial edema, no calf tenderness Neuro- alert, oriented x 3; PERRL, EOMI; no facial palsy Skin- warm & dry Laboratory Results: Last 24 Hours Test 07/09/17 12:41 07/09/17 18:49 07/09/17 20:16 07/10/17 06:22 Troponin I < 0.015 ng/ml < 0.015 ng/ml Bedside Glucose 121 mg/dl Sodium Level 144 mmol/L Potassium Level 4.2 mmol/L Chloride Level 114 mmol/L Carbon Dioxide Level 25 mmol/L Anion Gap 5.0 mmol/L Blood Urea Nitrogen 8 mg/dl Creatinine 0.48 mg/dl Est Creatinine Clear Calc Drug Dose 138.7 ml/min Estimated GFR () 145.2 Estimated GFR (Non- 125.3 BUN/Creatinine Ratio 17.1 Random Glucose 79 mg/dl Calcium Level 8.0 mg/dl Magnesium Level 2.1 mg/dl Test 07/10/17 06:52 Bedside Glucose 82 mg/dl Assessment & Plan SYNCOPE /COLLAPSE Possible related to seizure CT head showed no intracranial abnormality MRI head showed no intracranial abnormality u/s showed no hemodynamically significant stenosis seen within the carotid arteries. EEG showed no evidence for focal or generalized encephalopathy and without evidence for potentially epileptogenic activity. No arrhythmia on tele monitor ECHO showed no wall abnormality Neuro on board No seizure med was starting since pt has no seizure history If she has another episode, will start on seizure med Fall precaution and Seizure precaution No driving for atleast 6 month with no seizure. Follow up with neurology in about 2 weeks HX OF DRUG ABUSE hx of heroine and pain medication addiction UDS negative D/C IVF Consider drug rehab ELEVATED LACTIC ACID : possible due to recent fall /unresponsiveness No signs of infection Lactic acid back to normal DEPRESSION : Stable FULL CODE DVT PROPHYLAXIS: low risk SCD and teds ambulate Disposition Will discharge home today Consultants: Neuro Current Inpatient Medications: Current Inpatient Medications Medications (Trade) Dose Ordered Sig/Keven Route Start Time Stop Time Status Last Admin Dose Admin Potassium Chloride/Sodium Chloride 1,000 ml @ 100 mls/hr Q10H IV 07/08/17 20:00 08/07/17 18:29 07/10/17 06:28 125 MLS/HR Buspirone HCl (BusPAR TAB) 15 mg BID PO 07/08/17 21:00 08/07/17 20:59 07/10/17 08:20 15 MG Methocarbamol (Robaxin Tab) 750 mg TID PRN PO 07/08/17 18:45 08/07/17 18:44 Ondansetron HCl (Zofran Odt) 4 mg Q8 PRN SL 07/08/17 18:45 08/07/17 18:44 Quetiapine Fumarate (seroQUEL XR TAB) 200 mg HS PO 07/08/17 21:00 08/07/17 20:59 07/09/17 20:42 200 MG Pantoprazole Sodium (Protonix Tab) 40 mg DAILY PO 07/09/17 09:00 08/08/17 08:59 07/10/17 08:20 40 MG Lorazepam (Ativan Inj) 1 mg Q15M PRN IV 07/08/17 18:45 08/07/17 18:44 Acetaminophen (Tylenol Tab) 650 mg Q4H PRN PO 07/08/17 18:45 08/07/17 18:44 07/09/17 20:43 650 MG Al Hydrox/Mg Hydrox/Simethicone (Maalox Max Susp) 15 ml Q4H PRN PO 07/08/17 18:45 08/07/17 18:44 Magnesium Hydroxide (Milk Of Magnesia Susp) 30 ml Q12H PRN PO 07/08/17 18:45 08/07/17 18:44 Ondansetron HCl (Zofran Inj) 4 mg Q6H PRN IV 07/08/17 18:45 08/07/17 18:44 Polyethylene (Miralax Powder Packet) 17 gm DAILY PRN PO 07/08/17 18:45 08/07/17 18:44 Nicotine (Nicoderm Cq 21MG Patch) 1 patch QAM TD 07/09/17 09:00 08/08/17 08:59 07/10/17 08:20 1 PATCH Miscellaneous (Remove Nicoderm Patch) 1 ea HS N/A 07/09/17 08:59 08/08/17 08:58 07/09/17 20:43 1 EA Miscellaneous (Iv Fluids Completed) 1 ea PRN PRN N/A 07/08/17 21:30 07/08/18 21:29 Gadobutrol (Gadavist) 6 mmol UD PRN IV 07/09/17 16:00 07/13/17 15:59
--- NOTE | 2017-07-10 14:31 | Neurology Progress Notes ---
Neurology Progress Note Date of Service Jul 10, 2017. Lambert Nelson is a 36 year old female with PMH gastric bypass surgery , depression , Narcotic /heroin abuse. She was visiting her grandfather in the hospital and was getting something to eat in the cafe when she became confused she felt dizzy and LOC. According to report she did have some tremor and shaking, urinary incontinence and bit her tongue on the right. she was unresponsive for 3 -4 minutes she was awake but mumbling her words and didn't remember the occurrence. She states when she woke in the ED she was unsure where she was or why she was at the hospital. She has no history of seizure disorder and no family history she is aware of. She did start remembering things in the ED but in the room she felt she was back to baseline. no family is currently in the room. She has been sleep deprived because her grandfather is in the hospital and they didn't think he was going to live. She has a history of drug abuse but is in recovery. She did say she ate 2 hours prior to the episode. Today she is sitting bedside ready to be discharged. No new episodes of LOC. denies CP, SOB, abdominal pain, weakness, numbness tingling, flushing, N, V, morning jerks, starring spells Objective Date Time Temp Pulse Resp B/P (MAP) Pulse Ox O2 Delivery O2 Flow Rate FiO2 07/10/17 12:08 36.2 76 18 98/60 (73) 98 Room Air 07/10/17 12:00 Room Air 07/10/17 08:00 Room Air 07/10/17 08:00 37.0 70 16 107/69 (82) 70 Room Air 07/10/17 04:00 Room Air 07/10/17 03:43 36.5 58 18 84/54 (64) 94 Room Air 07/10/17 00:19 Room Air 07/09/17 23:57 36.7 50 16 89/61 (70) 97 Room Air 07/09/17 20:00 Room Air 07/09/17 19:45 36.9 85 16 94/62 (73) 98 07/09/17 16:00 Room Air Last 24 Hours Test 07/09/17 18:49 07/09/17 20:16 07/10/17 06:22 07/10/17 06:52 Troponin I < 0.015 ng/ml Bedside Glucose 121 mg/dl 82 mg/dl Sodium Level 144 mmol/L Potassium Level 4.2 mmol/L Chloride Level 114 mmol/L Carbon Dioxide Level 25 mmol/L Anion Gap 5.0 mmol/L Blood Urea Nitrogen 8 mg/dl Creatinine 0.48 mg/dl Est Creatinine Clear Calc Drug Dose 138.7 ml/min Estimated GFR () 145.2 Estimated GFR (Non- 125.3 BUN/Creatinine Ratio 17.1 Random Glucose 79 mg/dl Calcium Level 8.0 mg/dl Magnesium Level 2.1 mg/dl Imaging: MRI brain combo-No acute intracranial abnormality identified. No abnormal enhancement or seizure focus identified. No evidence of mesial temporal sclerosis. carotid doppler- Note is made of vascular flow of the left vertebral is reversed. Possibly of a left subclavian steal is considered. Dampened flow characteristics within the left subclavian artery. Exam: Physical Exam: Constitutional:appearance nourished, healthy and normal Ears, Nose, Mouth and Throat: mucous membranes moist, no injection and skin normal, eyes normal Cardiovascular: normal S-1 and S-2 and regular rate and rhythm Respiratory: clear to auscultation (CTA) and no rales, rhonchi or wheeze Musculoskeletal: no peripheral edema and good distal pulses Skin: no stigmata of neurocutaneous disease noted and normal and intact Eyes: extraocular muscles intact (EOMI) and pupils equal, round and reactive to light (PERRL) NEUROLOGIC EXAMINATION: Mental status: Alert and interactive Oriented to full date and location Oriented to person Speech fluent with no evidence of aphasia Cranial Nerves facial symmetry Coordination: finger to nose no bi pass Gait/Stance: Posture sitting bedside rises with no assistance Motor: Negative for pronator drift of out stretched arms with eyes closed. 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 up and walking in room Current Inpatient Medications Medications (Trade) Dose Ordered Sig/Keven Route Start Time Stop Time Status Last Admin Dose Admin Potassium Chloride/Sodium Chloride 1,000 ml @ 100 mls/hr Q10H IV 07/08/17 20:00 08/07/17 18:29 07/10/17 06:28 125 MLS/HR Buspirone HCl (BusPAR TAB) 15 mg BID PO 07/08/17 21:00 3/16/18 20:59 07/10/17 08:20 15 MG Methocarbamol (Robaxin Tab) 750 mg TID PRN PO 07/08/17 18:45 08/07/17 18:44 Ondansetron HCl (Zofran Odt) 4 mg Q8 PRN SL 07/08/17 18:45 08/07/17 18:44 Quetiapine Fumarate (seroQUEL XR TAB) 200 mg HS PO 07/08/17 21:00 08/07/17 20:59 07/09/17 20:42 200 MG Pantoprazole Sodium (Protonix Tab) 40 mg DAILY PO 07/09/17 09:00 08/08/17 08:59 07/10/17 08:20 40 MG Lorazepam (Ativan Inj) 1 mg Q15M PRN IV 07/08/17 18:45 08/07/17 18:44 Acetaminophen (Tylenol Tab) 650 mg Q4H PRN PO 07/08/17 18:45 08/07/17 18:44 07/09/17 20:43 650 MG Al Hydrox/Mg Hydrox/Simethicone (Maalox Max Susp) 15 ml Q4H PRN PO 07/08/17 18:45 08/07/17 18:44 Magnesium Hydroxide (Milk Of Magnesia Susp) 30 ml Q12H PRN PO 07/08/17 18:45 08/07/17 18:44 Ondansetron HCl (Zofran Inj) 4 mg Q6H PRN IV 07/08/17 18:45 08/07/17 18:44 Polyethylene (Miralax Powder Packet) 17 gm DAILY PRN PO 07/08/17 18:45 08/07/17 18:44 Nicotine (Nicoderm Cq 21MG Patch) 1 patch QAM TD 07/09/17 09:00 08/08/17 08:59 07/10/17 08:20 1 PATCH Miscellaneous (Remove Nicoderm Patch) 1 ea HS N/A 07/09/17 08:59 08/08/17 08:58 07/09/17 20:43 1 EA Miscellaneous (Iv Fluids Completed) 1 ea PRN PRN N/A 07/08/17 21:30 07/08/18 21:29 Gadobutrol (Gadavist) 6 mmol UD PRN IV 07/09/17 16:00 2/19/18 15:59 Impression 36 year old female s/p fall and seizure like activity Plan 1. CT with no acute findings 2. TTE - no ASD 3. carotid study - vascular flow of the left vertebral is reversed. Possibly of a left subclavian steal is considered. Dampened flow characteristics within the left subclavian artery. 4. MRI combo brain seizure protocol - no acute findings 5. seizure precautions 6. fall precautions 7. no driving for 6 months seizure free 8. no bathing or swimming alone, no heights 9. blood sugars should be checked for any hypoglycemia although ones recorded were not low enough to cause a LOC. 10. will see in our office in 2-3 weeks for follow up Maribeth Garcia MD or Maribeth Infante [facility] neurology I have seen and discussed above patient with Dr Maribeth Garcia, neurology Pt dc before I have seen her. Isolated sz, neg work-up. Blood sugar was 52, not typically low enough to cause sz. Has L subclavian steal, would not present with sz, and pt appears asx in that regard in terms of post circulation ischemia. ELY Garcia MD
[2017-07-10 14:47] VITALS: BP 98/60; PULSE 76; TEMP 36.2; O2SAT 98
--- NOTE | 2017-07-10 15:57 | Discharge Instructions ---
Discharge Instructions Date of Service Jul 10, 2017. Admission Reason for Admission: Hypoglycemia, Seizure Discharge Discharge Diagnosis / Problem: Syncope/ Seizure like activity/Hx drug abuse/ Discharge Goals Goal(s): Decrease discomfort, Improve function, Improve disease control Activity Recommendations Activity Limitations: resume your previous activity (as tolerated) . Instructions / Follow-Up Instructions / Follow-Up Follow up with your primary care provider Dr. Buenrostro on 07/16 @ 12:55 Follow up with neurology Dr. Garcia between 2 to 4 weeks (Please call to schedule for the appointment) Counseling on smoking cessation and illicit drug abuse Fall and Seizure precautions No activities at high level No driving for 6 months until seizure free No bathing or swimming alone Current Hospital Diet Patient's current hospital diet: Regular Diet Discharge Diet Recommended Diet: Regular Diet Pending Studies Studies pending at discharge: no Laboratory Results Hemoglobin A1c Test 07/08/17 16:20 Range/Units Estimated Average Glucose 117 mg/dl Hemoglobin A1c 5.7 H 4.5-5.6 % Lipid Panel Test 07/09/17 06:35 Range/Units Triglycerides Level 61 0-150 mg/dl Cholesterol Level 107 0-200 mg/dl HDL Cholesterol 44 mg/dl Cholesterol/HDL Ratio 2.4 LDL Cholesterol, Calculated 51 mg/dl Medical Emergencies . Who to Call and When: Medical Emergencies: If at any time you feel your situation is an emergency, please call 911 immediately. . Non-Emergent Contact Non-Emergency issues call your: Primary Care Provider, Neurologist Call Non-Emergent contact if: you have any medication questions . . "Provider Documentation" section prepared by Diony aRhman. . VTE Core Measure Inpt VTE Proph given/why not?: José Luis Kelsey, [facility]
--- NOTE | 2017-07-11 18:19 | Discharge Summary ---
Discharge Summary Date of Service Jul 11, 2017. Discharge Summary Admission Date: Jul 08, 2017 at 18:35 Discharge Date: Jul 10, 2017 Discharge Disposition: Home Principal Diagnosis: Syncope/Seizure like activity Secondary Diagnoses/Problems: Hx drug abuse ELEVATED LACTIC ACID Depression Procedures: BRAIN COMBO FOR SEIZURE HISTORY: 36 years-old Female LOC /post ictal no seizure history acute seizure on 07/08/2017 COMPARISON: Head CT 07/08/2017 TECHNIQUE: Multiplanar multisequence MRI of the brain was obtained both with and without the use of 6 mL Gadavist utilizing seizure protocol FINDINGS: The large [id number] traffic administrator localizer images demonstrate no gross abnormality. There is no restricted diffusion to suggest acute infarction. The midline structures including the corpus callosum, brainstem, optic chiasm, infundibulum, pituitary and pineal glands appear unremarkable on the sagittal T1 images. No cerebellar tonsillar herniation. No acute intracranial hemorrhage, midline shift, abnormal extra-axial collections or hydrocephalus. No cortical dysplasia or seizure focus identified. No evidence of mesial temporal sclerosis. No focal signal abnormalities of the brain parenchyma identified. There is no abnormal intra-axial or extra-axial enhancement identified. The major flow voids at the level of the skull base appear patent. Mastoid air cells demonstrate minimal fluid. Minimal ethmoid sinus disease. Hypoplasia of the left frontal sinus. Orbits are unremarkable. Scalp, calvarium and soft tissues are within normal limits. IMPRESSION: 1. No acute intracranial abnormality identified. 2. No abnormal enhancement or seizure focus identified. 3. No evidence of mesial temporal sclerosis. The above report was generated using voice recognition software. It may contain grammatical, syntax or spelling errors. Electronically signed by: Keyshawn Payton M.D. 07/09/2017 4:00 PM Dictated Date/Time: 07/09/2017 3:52 PM ADDENDUM Note is made of vascular flow of the left vertebral is reversed. Possibly of a left subclavian steal is considered. Dampened flow characteristics within the left subclavian artery. Electronically signed by: Markell Enciso M.D. 07/10/2017 9:38 AM Dictated Date/Time: 07/10/2017 9:37 AM ORIGINAL REPORT CAROTID DOPPLER NECK ART HISTORY: Mental status change syncope episode COMPARISON: None. TECHNIQUE: Real-time, grayscale, and color Doppler sonography of the carotid arteries was performed. Imaging reviewed in the transverse and longitudinal planes. All measurements were calculated based on NASCET criteria. FINDINGS: Antegrade flow is seen in the bilateral vertebral arteries. The brachial pressures are hemodynamically similar. Mild plaque formation bilaterally The peak systolic velocity within the right ICA is 79. The right systolic ratio is 1.0. The peak systolic velocity within the left ICA is 70. The left systolic ratio is 0.8. IMPRESSION: No hemodynamically significant stenosis seen within the carotid arteries. The above report was generated using voice recognition software. It may contain grammatical, syntax or spelling errors. Electronically signed by: Markell Enciso M.D. 07/09/2017 4:40 PM Dictated Date/Time: 07/09/2017 4:38 PM [~ rep ct add3]] CHEST ONE VIEW PORTABLE CLINICAL HISTORY: 36 years-old Female presenting with ?seizure. TECHNIQUE: Portable upright AP view of the chest was obtained. COMPARISON: 05/31/2017. FINDINGS: Cardiomediastinal silhouette normal. Mildly low lung volumes with hypoventilatory changes. No focal opacity. No large effusion or pneumothorax. Osseous structures normal. Cholecystectomy clips noted. IMPRESSION: 1. Mildly low lung volumes with hypoventilatory changes. Otherwise no acute cardiopulmonary disease. Electronically signed by: Xavier Turpin M.D. 07/08/2017 4:47 PM Dictated Date/Time: 07/08/2017 4:47 PM [~ rep ct add3]] HEAD WITHOUT CONTRAST (CT) CLINICAL HISTORY: 36 years-old Female presenting with EVALUATE FOR PSYCH CLEARANCE, seizure. TECHNIQUE: Multidetector CT imaging of the head was performed without the use of intravenous contrast. IV contrast: None. A dose lowering technique was used consistent with the principles of ALARA (as low as reasonably achievable). COMPARISON: None. CT DOSE (mGy.cm): The estimated cumulative dose is 537.48 mGy.cm. FINDINGS: Account Financial Manager topogram: Unremarkable. Ventricles and sulci normal in size. Brain parenchyma normal in appearance with preserved bronson-white differentiation. No mass effect or midline shift. No hemorrhage or acute territorial infarct. No extra-axial fluid collection. Paranasal sinuses and mastoid air cells clear. Calvarium intact. IMPRESSION: 1. No acute intracranial abnormality. Electronically signed by: Xavier Turpin M.D. 07/08/2017 5:38 PM Dictated Date/Time: 07/08/2017 5:36 PM ECHO Interpretation Summary * Name: NICA PEÑA Study Date: 07/09/2017 07:09 AM BP: 116/72 mmHg * Patient Location: [facility]\\S\\[facility]\\S\\2 HR: 72 * : 1980 (M/d/yyyy) Gender: Female Height: 64 in * Age: 36 yrs Ethnicity: [place] Weight: 136 lb * Ordering Physician: Amna Santos * Referring Physician: Self, Referred * Performed By: Kane Ventura RCS * * Reason For Study: Syncope * BSA: 1.7 m2 * Normal transthoracic echocardiogram. * -- Conclusions -- * The left ventricle is normal in size. * There is normal left ventricular wall thickness. * Left ventricular systolic function is normal. * The left ventricular wall motion is normal. * Ejection Fraction = 60-65%. * The aortic root is normal size. * There is no valvular disease Procedure Details * A complete two-dimensional transthoracic echocardiogram was performed (2D, M- mode, Doppler and color flow Doppler). Left Ventricle * The left ventricle is normal in size. * There is normal left ventricular wall thickness. * Ejection Fraction = 60-65%. * Left ventricular systolic function is normal. * The left ventricular wall motion is normal. Right Ventricle * The right ventricle is normal in size and function. Atria * The left atrial size is normal. * Right atrial size is normal. * No ASD detected; PFO is not assessed. Mitral Valve * The mitral valve anatomy is normal. * There is no mitral valve stenosis. * There is trace mitral regurgitation. Tricuspid Valve * The tricuspid valve anatomy is normal. * There is no tricuspid stenosis. * There is trace tricuspid regurgitation. * Doppler findings do not suggest pulmonary hypertension. Aortic Valve * The aortic valve is trileaflet. * No hemodynamically significant valvular aortic stenosis. * No aortic regurgitation is present. Pulmonic Valve * The pulmonic valve is not well visualized. * There is no pulmonic valvular stenosis. * There is no pulmonic valvular regurgitation. Great Vessels * The aortic root is normal size. Pericardium/Pleural * There is no pericardial effusion. Great Vessels * Normal inferior vena cava diameter and respiratory variation suggests normal central venous pressure. Consultations: Neuro Medication Reconciliation Continued Medications: Buspirone Hcl (Buspar) 15 Mg Tab 15 MG PO BID, TAB Methocarbamol (Robaxin) 750 Mg Tab 750 MG PO TID PRN for Muscle Spasm, TAB TAKE FOR NO LONGER THAN 2 WEEKS AT A TIME Omeprazole (Prilosec) 40 Mg Cap 40 MG PO DAILY, CAP Ondasetron Odt (Zofran Odt) 4 Mg Tab 4-8 MG SL Q8 PRN for Nausea or Vomiting, TAB Quetiapine Fumarate Xr (Seroquel Xr) 200 Mg Tabcr 200 MG PO HS, TAB Admission Information HPI (per Admitting provider): This is a 36 yo F with medical hx of gastric bypass surgery , depression , Narcotic /heroin abuse, had episode of syncope followed by Collapse , period of unresponsiveness at [facility] [employer] today information obtained form Mother -as pt remained confused , Pt's Grandfather is admitted at [facility] , pt and her mother were in hospital overnight , this morning she was tired , had minimum sleep Pt's cousin noted -she took couple of meds in the morning , including one she took out of rolled wax paper during noon time at the Caf[employer] -pt was in the line to pay for her food , suddenly collapsed and fell on the floor , noted to having tremor and shaking , urinary incontinence remained unresponsive for ~3-4 mins , then able to open eyes , mumbling words, sat up with assistance does not recall what happened pt was transported to ER in ER pt was awake and alert , sitting up -very emotional , crying , anxious - saying repeatedly -she does not remember anything and upset as her mother asked her about illegal drug use . No Sz like activity noted, no complain of headache , blurred vision or chest pain no Prior hx of Sz disorder vital remains stable Ct head with out contrast -negative for CVA Physical Exam (per Admitting): General Appearance: + moderate distress (due to anxiety /tearful ) Head: normocephalic, atraumatic Eyes: sclerae normal Neck: thyroid normal, no carotid bruits, trachea midline Respiratory/Chest: chest non-tender, lungs clear, normal breath sounds, no respiratory distress Cardiovascular: no edema, no JVD, normal peripheral pulses, + tachycardia Abdomen/GI: normal bowel sounds, non tender, soft Extremities/Musculoskelatal: normal capillary refill, no pedal edema Neurologic/Psych: no motor/sensory deficits, alert, oriented x 3, + pertinent finding (very anxious , upset as she does not recall any event prior to fall ) Hospital Course SYNCOPE /COLLAPSE Possible related to seizure CT head showed no intracranial abnormality MRI head showed no intracranial abnormality u/s showed no hemodynamically significant stenosis seen within the carotid arteries. EEG showed no evidence for focal or generalized encephalopathy and without evidence for potentially epileptogenic activity. No arrhythmia on tele monitor ECHO showed no wall abnormality Neuro on board No seizure med was starting since pt has no seizure history If she has another episode, will start on seizure med Fall precaution and Seizure precaution No driving for atleast 6 month with no seizure. Follow up with neurology in about 2 weeks HX OF DRUG ABUSE hx of heroine and pain medication addiction UDS negative D/C IVF Consider drug rehab ELEVATED LACTIC ACID : possible due to recent fall /unresponsiveness No signs of infection Lactic acid back to normal DEPRESSION : Stable FULL CODE DVT PROPHYLAXIS: low risk SCD and teds ambulate Disposition Will discharge home today Total time spent on discharge = 35 minutes This includes examination of the patient, discharge planning, medication reconciliation, and communication with other providers. Discharge Instructions Discharge Instructions Date of Service Jul 10, 2017. Admission Reason for Admission: Hypoglycemia, Seizure Discharge Discharge Diagnosis / Problem: Syncope/ Seizure like activity/Hx drug abuse/ Discharge Goals Goal(s): Decrease discomfort, Improve function, Improve disease control Activity Recommendations Activity Limitations: resume your previous activity (as tolerated) . Instructions / Follow-Up Instructions / Follow-Up Follow up with your primary care provider Dr. Buenrostro on 07/16 @ 12:55 Follow up with neurology Dr. Garcia between 2 to 4 weeks (Please call to schedule for the appointment) Counseling on smoking cessation and illicit drug abuse Fall and Seizure precautions No activities at high level No driving for 6 months until seizure free No bathing or swimming alone Current Hospital Diet Patient's current hospital diet: Regular Diet Discharge Diet Recommended Diet: Regular Diet Pending Studies Studies pending at discharge: no Laboratory Results Hemoglobin A1c Test 07/08/17 16:20 Range/Units Estimated Average Glucose 117 mg/dl Hemoglobin A1c 5.7 H 4.5-5.6 % Lipid Panel Test 07/09/17 06:35 Range/Units Triglycerides Level 61 0-150 mg/dl Cholesterol Level 107 0-200 mg/dl HDL Cholesterol 44 mg/dl Cholesterol/HDL Ratio 2.4 LDL Cholesterol, Calculated 51 mg/dl Medical Emergencies . Who to Call and When: Medical Emergencies: If at any time you feel your situation is an emergency, please call 911 immediately. . Non-Emergent Contact Non-Emergency issues call your: Primary Care Provider, Neurologist Call Non-Emergent contact if: you have any medication questions . . "Provider Documentation" section prepared by Diony Rahman. . VTE Core Measure Inpt VTE Proph given/why not?: José Luis Kelsey, SCD's Additional Copies To Lorena Zhou PA-C; Alexey Buenrostro M.D.(LILLIAM)
== END 2017-07-10 16:15 | disposition home or self-care (01) ==
LOC: EDBD 16:06 → EDSEX 16:06 → C.EDB 16:08 → C.2T 18:35 → ENRESERV 18:54
PROVIDERS: ADMIT Hospitalist; ATTEND Internal Medicine
DX: R55 Syncope and collapse (principal); Z87.898 Personal history of other specified conditions; R74.0 Nonspecific elevation of levels of transaminase and lactic acid dehydrogenase [LDH]; F32.9 Major depressive disorder, single episode, unspecified; Z98.84 Bariatric surgery status; F11.11 Opioid abuse, in remission; F17.200 Nicotine dependence, unspecified, uncomplicated; K21.9 Gastro-esophageal reflux disease without esophagitis; Z79.899 Other long term (current) drug therapy; Z90.49 Acquired absence of other specified parts of digestive tract; Z90.89 Acquired absence of other organs; Z80.9 Family history of malignant neoplasm, unspecified; Z83.3 Family history of diabetes mellitus; Z82.49 Family history of ischemic heart disease and other diseases of the circulatory system; Z84.1 Family history of disorders of kidney and ureter; Z88.8 Allergy status to other drugs, medicaments and biological substances; Z88.6 Allergy status to analgesic agent

== ENCOUNTER 2021-08-28 22:40 | Observation (INO) ==
[2021-08-28] MEDS ORDERED: SODIUM CHLORIDE 0.9% 1000ML 1,000 ML IV SCH (23:00)
[2021-08-28] MEDS ORDERED: ACETAMINOPHEN 1,000 MG/100 ML VIAL IV STA (23:32)
[2021-08-28 23:39] LABS: Hemoglobin 7.8 g/dL (12.0-16.0); Mean Corpuscular Hemoglobin 19.1 pg (25-34); Mean Corpuscular Hgb Conc 28.9 g/dL (32-36); Mean Platelet Volume 10.1 fL (7.4-10.4); Platelet Count 240 K/uL (130-400); RDW Coefficient of Variation 24.9 % (11.5-14.5); RDW Standard Deviation 59.3 fL (36.4-46.3); Red Blood Count 4.09 M/uL (4.2-5.4); White Blood Count 5.47 K/uL (4.8-10.8)
[2021-08-28] MEDS ORDERED: ONDANSETRON INJ 2 MG/ML 2 ML VIAL IV STA (23:45)
[2021-08-28 23:55] LABS: Albumin Globulin Ratio 1.2 (0.9-2); Albumin Level 3.3 gm/dl (3.4-5.0); BUN Creatinine Ratio 10.6 (10-20); Bilirubin,Total 0.6 mg/dl (0.2-1.0); Calcium 7.9 mg/dl (8.5-10.1); Creatinine Clr Calc Pharmacy 149.1 ml/min; Est GFR (African American) 142.2 ml/min; Est GFR (Non-African American) 122.7 ml/min; Globulin 2.7 gm/dl (2.5-4.0); Magnesium 1.8 mg/dl (1.7-2.4); Potassium 3.4 mmol/L (3.5-5.1)
[2021-08-28 23:57] LABS: Anisocytosis Present; Basophils # (auto) 0.02 K/uL (0-0.2); Basophils % (auto) 0.4 %; Eosinophils # (auto) 0.02 K/uL (0-0.5); Eosinophils % (auto) 0.4 %; Hypochromasia Present; Immature Granulocytes # (auto) 0.02 K/uL (0.00-0.02); Immature Granulocytes % (auto) 0.4 %; Lymphocytes # (auto) 0.48 K/uL (1.2-3.4); Lymphocytes % (auto) 8.8 %; Microcytosis Present; Monocytes % (auto) 7.3 %; Neutrophils # (auto) 4.53 K/uL (1.4-6.5); Neutrophils % (auto) 82.7 %; Target Cells 1+
--- NOTE | 2021-08-29 00:01 | Emergency Department Note ---
History of Present Illness General Chief complaint: GI Assessment Stated complaint: STOMACH AND BACK PAIN Time Seen by Provider: 08/28/21 22:51 Source: patient Mode of arrival: ambulatory Limitations: no limitations History of Present Illness Provider complaint: Abdominal pain, fever Onset (ago): hour(s) 4 Location: back and abdomen Radiation: non-radiation Severity: moderate Maximum Pain Intensity: 8 Associated symptoms: + fever/chills, + loss of appetite, + malaise and + nausea/ vomiting; no chest pain or no headaches Treatments prior to arrival: none This is a 40-year-old female presents emergency department complaining of abdominal pain, back pain, fevers, nausea. Patient had undergone an EGD/colonoscopy 930 this morning up at [facility]. She states she felt fine during the procedure and no complications were reported to her while she was sedated. Patient states she had the EGD/colonoscopy as part of an ongoing evaluation for anemia. She did have a blood transfusion several weeks ago. Patient states that around 730 this evening she began having abdominal pain and mid back pain. She states that the pain worsened and she also began having nausea, and then between 830 and 9:00 developed a fever. She contacted the on-call doctor for GI through [facility] and was told to come the emergency room for additional evaluation. Patient states she has been passing gas since the colonoscopy. She states she does have some chronic abdominal pain and distention as she has had prior gastric bypass. Patient denies any vomiting. Patient states she was able to eat and drink following the procedure and felt well at that time. Pt seen during a time of high acuity and national emergency pandemic while wearing PPE. Home Medications Medication Instructions Recorded Confirmed Type omeprazole 40 mg capsule,delayed 40 mg PO BID 02/14/18 08/28/21 History release buspirone 10 mg tablet 10 mg PO BID 08/28/21 08/28/21 History fluoxetine 20 mg capsule (Prozac) 20 mg PO DAILY 08/28/21 08/28/21 History trazodone 100 mg tablet 100 mg PO HS 08/28/21 08/28/21 History Allergies Allergy/AdvReac Type Severity Reaction Status Date / Time bupropion Allergy Intermediate HIVES Verified 08/28/21 23:19 hydromorphone AdvReac Intermediate VOMITING Verified 08/28/21 23:19 NSAIDS (Non-Steroidal AdvReac Unknown CONTRAINDICATED Verified 08/28/21 23:19 Anti-Inflamma D/T GASTRIC BYPASS Past Med/Surg History Medical History Depression GERD (gastroesophageal reflux disease) Surgical History H/O gastric bypass History of cholecystectomy Hx of tonsillectomy Social History Smoking Status: Current every day smoker Tobacco Type: Cigarettes Cigarettes Per Day: 4-5 per day; Do You Dip or Chew Tobacco: No; Hx Alcohol Use: No Hx Substance Use: No Preferred Language: [place] Communication Ability: Effective Chute Feeder Required: No Beliefs That Will Affect Care: None Current Living Situation: Alone Feels Safe at Home: No Safety Concerns: Feels Safe At This Time Assistive Devices: None Review of Systems A total of 10 systems reviewed and were otherwise negative All systems reviewed & are unremarkable except as noted in HPI & below Physical Exam Vital Signs Vital Signs - 24 hr 08/28/21 22:42 08/28/21 23:05 08/28/21 23:08 Temperature 37.7 C H Temperature Source Temporal Artery Scan Pulse Rate 101 H Pulse Rate [Right Finger] 99 H 99 H Pulse Rhythm [Right Finger] Regular Regular Pulse Strength [Right Finger] Normal Normal Respiratory Rate 16 19 19 Respiratory Effort / Characteristics Non-Labored Spontaneous Non-Labored Spontaneous Respiratory Depth Normal Normal Blood Pressure 138/74 Blood Pressure [Right Arm] Blood Pressure Mean 95 Blood Pressure Mean [Right Arm] Blood Pressure Position [Right Arm] Pulse Oximetry 98 97 98 Oxygen Delivery Method Room Air Room Air Room Air Sepsis Recent Fever Within 48 Hours Yes Sepsis New/Unexplained Change in Mental Status N/A Sepsis Action Taken by Nursing No Action Required 08/28/21 23:21 08/29/21 00:00 08/29/21 00:30 Temperature Temperature Source Pulse Rate Pulse Rate [Right Finger] 98 H 76 Pulse Rhythm [Right Finger] Regular Regular Pulse Strength [Right Finger] Normal Normal Respiratory Rate 19 18 18 Respiratory Effort / Characteristics Non-Labored Non-Labored Non-Labored Spontaneous Respiratory Depth Normal Normal Blood Pressure Blood Pressure [Right Arm] 109/64 Blood Pressure Mean Blood Pressure Mean [Right Arm] 79 Blood Pressure Position [Right Arm] Lying Pulse Oximetry 97 97 100 Oxygen Delivery Method Room Air Room Air Room Air Sepsis Recent Fever Within 48 Hours Sepsis New/Unexplained Change in Mental Status Sepsis Action Taken by Nursing 08/29/21 00:48 08/29/21 01:00 08/29/21 01:06 Temperature 36.9 C Temperature Source Oral Pulse Rate Pulse Rate [Right Finger] 78 74 Pulse Rhythm [Right Finger] Regular Regular Pulse Strength [Right Finger] Normal Normal Respiratory Rate 18 18 Respiratory Effort / Characteristics Non-Labored Spontaneous Non-Labored Spontaneous Respiratory Depth Normal Normal Blood Pressure Blood Pressure [Right Arm] 109/68 Blood Pressure Mean Blood Pressure Mean [Right Arm] 81 Blood Pressure Position [Right Arm] Lying Pulse Oximetry 99 99 Oxygen Delivery Method Room Air Room Air Sepsis Recent Fever Within 48 Hours Sepsis New/Unexplained Change in Mental Status Sepsis Action Taken by Nursing 08/29/21 01:30 08/29/21 02:00 08/29/21 02:30 Temperature Temperature Source Pulse Rate Pulse Rate [Right Finger] 74 Pulse Rhythm [Right Finger] Regular Pulse Strength [Right Finger] Normal Respiratory Rate 17 17 17 Respiratory Effort / Characteristics Non-Labored Spontaneous Non-Labored Spontaneous Non-Labored Spontaneous Respiratory Depth Normal Blood Pressure Blood Pressure [Right Arm] Blood Pressure Mean Blood Pressure Mean [Right Arm] Blood Pressure Position [Right Arm] Pulse Oximetry 99 99 99 Oxygen Delivery Method Room Air Room Air Room Air Sepsis Recent Fever Within 48 Hours Sepsis New/Unexplained Change in Mental Status Sepsis Action Taken by Nursing 08/29/21 02:35 08/29/21 02:50 Temperature 36.5 C 36.5 C Temperature Source Oral Oral Pulse Rate Pulse Rate [Right Finger] 74 Pulse Rhythm [Right Finger] Regular Pulse Strength [Right Finger] Normal Respiratory Rate 17 Respiratory Effort / Characteristics Non-Labored Spontaneous Respiratory Depth Normal Blood Pressure Blood Pressure [Right Arm] 107/63 Blood Pressure Mean Blood Pressure Mean [Right Arm] 77 Blood Pressure Position [Right Arm] Lying Pulse Oximetry 99 Oxygen Delivery Method Room Air Sepsis Recent Fever Within 48 Hours Sepsis New/Unexplained Change in Mental Status Sepsis Action Taken by Nursing GENERAL: alert, well appearing, well nourished, no distress, non-toxic EYE EXAM: normal conjunctiva, PERRL and EOM's grossly intact OROPHARYNX: no exudate, no erythema, lips, buccal mucosa, and tongue normal and mucous membranes are moist NECK: supple, no nuchal rigidity, no adenopathy, non-tender LUNGS: Clear to auscultation. Normal chest wall mechanics, no w/r/r HEART: no murmurs, S1 normal and S2 normal ABDOMEN: abdomen soft, non-tender, normo-active bowel sounds, no masses, no rebound or guarding. BACK: Back is symmetrical on inspection and there is no deformity, no midline tenderness, no CVA tenderness. SKIN: no rashes and no bruising UPPER EXTREMITIES: upper extremities are grossly normal. FROM, nml pulses b/l. LOWER EXTREMITIES: No pitting edema. FROM, nml pulses b/l. NEURO EXAM: Normal sensorium, cranial nerves II-XII grossly intact, normal speech, no gross weakness of arms, no gross weakness of legs. Gross sensation intact. Course Course 0112: Patient updated on results so far, states she is feeling improved. No further fever, abdominal pain improved although she states she has mildly nauseated yet. CT still pending. We did discuss her abnormal LFTs which she states is known and she was ultimately diagnosed with hepatitis C. She states she is appointment on Thursday to discuss a treatment plan for this. 0232: Patient states pain is returned and now more severe again. She is still nauseated despite 2 different medications. We did discuss elevated procalcitonin. Patient would like to continue to avoid narcotics for pain given that she had just completed rehab for heroin. Patient noted to be mildly diaphoretic, will recheck temperature. Administered Medications Buspirone HCl (Buspirone 5 Mg Tab) 10 mg PO BID [facility] Stop: 09/28/21 08:59 Last Admin: 08/29/21 08:28 Dose: 10 mg Documented by: [id number] Cyanocobalamin (Cyanocobalamin (B-12) 100 Mcg Tablet) 100 mcg PO QAM [facility] Stop: 09/28/21 16:44 Last Admin: 08/29/21 17:18 Dose: 100 mcg Documented by: [id number] Ferrous Gluconate (Ferrous Gluconate 324 Mg Tab) 324 mg PO QAM [facility] Stop: 09/28/21 16:14 Last Admin: 08/29/21 17:18 Dose: 324 mg Documented by: [id number] Fluoxetine HCl (Fluoxetine Hcl 20 Mg Cap) 20 mg PO DAILY [facility] Stop: 09/28/21 08:59 Last Admin: 08/29/21 08:28 Dose: 20 mg Documented by: [id number] Oxycodone HCl (Oxycodone Hcl Ir 5 Mg Tab (Immediate Release)) 5 mg PO Q4H PRN PRN Reason: Pain Stop: 09/12/21 05:48 Last Admin: 08/29/21 17:05 Dose: 5 mg Documented by: [id number] Admin: 08/29/21 12:00 Dose: 5 mg Documented by: [id number] Pantoprazole Sodium (Pantoprazole 40 Mg Tab) 40 mg PO BID [facility] Stop: 09/28/21 08:59 Last Admin: 08/29/21 08:27 Dose: 40 mg Documented by: [id number] Discontinued Medications Gadobutrol (Gadobutrol 65ml Vial) 6.5 ml IV ONCE ONE Stop: 08/29/21 05:24 Last Admin: 08/29/21 05:23 Dose: 6.5 ml Documented by: [id number] Sodium Chloride (Nss 1000ml) 1,000 mls @ 999 mls/hr IV .Q1H1M [facility] Stop: 08/29/21 00:00 Last Infusion: 08/29/21 00:05 Dose: 0 mls/hr Documented by: [id number] Admin: 08/28/21 23:25 Dose: 999 mls/hr Documented by: [id number] Acetaminophen (Ofirmev) 1,000 mg in 100 mls @ 400 mls/hr IV NOW STA Stop: 08/28/21 23:46 Last Infusion: 08/29/21 00:23 Dose: 0 mls/hr Documented by: [id number] Admin: 08/29/21 00:03 Dose: 400 mls/hr Documented by: [id number] Sodium Chloride (Nss 1000ml) 1,000 mls @ 200 mls/hr IV .Q5H [facility] Stop: 09/28/21 01:14 Last Infusion: 08/29/21 06:01 Dose: 0 mls/hr Documented by: [id number] Admin: 08/29/21 01:25 Dose: 200 mls/hr Documented by: [id number] Piperacillin Sod/Tazobactam Sod (Zosyn) 4.5 gm in 120 mls @ 240 mls/hr IV NOW ONE Stop: 08/29/21 02:56 Last Infusion: 08/29/21 03:45 Dose: 0 mls/hr Documented by: [id number] Admin: 08/29/21 03:12 Dose: 240 mls/hr Documented by: [id number] Pantoprazole Sodium 40 mg/ (Syringe) 10 mls @ 5 mls/min IV NOW ONE Stop: 08/29/21 02:46 Last Admin: 08/29/21 03:19 Dose: 5 mls/min Documented by: [id number] Daptomycin 350 mg/ Syringe 7 mls @ 3.5 mls/min IV ONE STA; Protocol Stop: 08/29/21 04:01 Last Admin: 08/29/21 04:08 Dose: 3.5 mls/min Documented by: [id number] Piperacillin Sod/Tazobactam (Sod 3.375 gm/ Dextrose) 115 mls @ 28.75 mls/hr IV Q8H [facility]; Protocol Stop: 10/10/21 07:59 Last Admin: 08/29/21 16:39 Dose: Not Given Documented by: [id number] Infusion: 08/29/21 13:43 Dose: 0 mls/hr Documented by: [id number] Admin: 08/29/21 09:36 Dose: 28.8 mls/hr Documented by: [id number] Ioversol (Optiray 320 100ml) 100 ml IV ONCE ONE Stop: 08/29/21 00:33 Last Admin: 08/29/21 00:33 Dose: 93 ml Documented by: [id number] Ketorolac Tromethamine (Ketorolac Tromethamine 15 Mg/Ml Vial) 10 mg IV NOW ONE Stop: 08/29/21 02:46 Last Admin: 08/29/21 03:13 Dose: 10 mg Documented by: [id number] Metoclopramide HCl (Metoclopramide Hcl Inj 5 Mg/Ml 2 Ml Vial) 5 mg IV ONE ONE Stop: 08/29/21 01:16 Last Admin: 08/29/21 01:25 Dose: 5 mg Documented by: [id number] Metronidazole (Metronidazole 500 Mg Tab) 500 mg PO NOW STA Stop: 08/29/21 03:46 Last Admin: 08/29/21 04:03 Dose: 500 mg Documented by: [id number] Ondansetron HCl (Ondansetron Inj 2 Mg/Ml 2 Ml Vial) 4 mg IV NOW STA Stop: 08/28/21 23:46 Last Admin: 08/29/21 00:03 Dose: 4 mg Documented by: [id number] Ondansetron HCl (Ondansetron Inj 2 Mg/Ml 2 Ml Vial) 4 mg IV NOW STA Stop: 08/29/21 02:57 Last Admin: 08/29/21 03:12 Dose: 4 mg Documented by: [id number] Potassium Chloride (Potassium Chloride Crtab 20 Meq Tabcr) 20 meq PO NOW STA Stop: 08/29/21 03:18 Last Admin: 08/29/21 03:38 Dose: 20 meq Documented by: [id number] Potassium Chloride (Potassium Chloride Crtab 20 Meq Tabcr) 40 meq PO NOW STA Stop: 08/29/21 08:53 Last Admin: 08/29/21 09:34 Dose: 40 meq Documented by: [id number] Medical Decision Making Differential Diagnosis Differential diagnoses includes but is not limited to gastritis, peptic ulcer di sease, GERD, gallbladder disease, pancreatitis, small bowel obstruction, acute coronary syndrome, pericarditis, ischemic bowel, irritable bowel disease, irritable bowel syndrome, appendicitis, diverticulitis, malignancy, hernia, urinary tract infection, torsion, [/ectopic (if female)], perforation, trauma, infectious. Medical Records Attestation: I reviewed the patient's medical records. Home Medications Current Medication List: was personally reviewed by me Laboratory Data Attestation: I reviewed the patient's lab results. Result diagrams: 08/29/21 15:01 08/29/21 06:58 Lab Results 08/28/21 08/28/21 08/28/21 Range/Units 23:17 23:17 23:17 WBC 5.47 (4.8-10.8) K/uL RBC 4.09 L (4.2-5.4) M/uL Hgb 7.8 L (12.0-16.0) g/dL Hct 27.0 L (37-47) % MCV 66.0 L (80-100) fL MCH 19.1 L (25-34) pg MCHC 28.9 L (32-36) g/dL RDW Std Deviation 59.3 H (36.4-46.3) fL RDW Coeff of Naomi 24.9 H (11.5-14.5) % Plt Count 240 (130-400) K/uL MPV 10.1 (7.4-10.4) fL Immature Gran % (Auto) 0.4 % Neut % (Auto) 82.7 % Lymph % (Auto) 8.8 % [place] % (Auto) 7.3 % Eos % (Auto) 0.4 % Baso % (Auto) 0.4 % Neut # (Auto) 4.53 (1.4-6.5) K/uL Lymph # (Auto) 0.48 L (1.2-3.4) K/uL [place] # (Auto) 0.40 (0.11-0.59) K/uL Eos # (Auto) 0.02 (0-0.5) K/uL Baso # (Auto) 0.02 (0-0.2) K/uL Immature Gran # (Auto) 0.02 (0.00-0.02) K/uL Hypochromasia Present Anisocytosis Present Microcytosis Present Target Cells 1+ Sodium 139 (136-145) mmol/L Potassium 3.4 L (3.5-5.1) mmol/L Chloride 108 H (98-107) mmol/L Carbon Dioxide 24 (21-32) mmol/L Anion Gap 7 (3-11) BUN 5 L (6-23) mg/dl Creatinine 0.47 L (0.6-1.2) mg/dl Est Cr Clr Drug Dosing 149.1 ml/min Est GFR ( Amer) 142.2 ml/min Est GFR (Non-Af Amer) 122.7 ml/min BUN/Creatinine Ratio 10.6 (10-20) Glucose 159 H (70-99(Fasting)) mg/dl Lactate 1.6 (0.4-2.0) mmol/L Calcium 7.9 L (8.5-10.1) mg/dl Magnesium 1.8 (1.7-2.4) mg/dl Total Bilirubin 0.6 (0.2-1.0) mg/dl AST 237 H (13-39) U/L ALT 318 H (7-52) U/L Alkaline Phosphatase 147 H (34-104) U/L Total Protein 6.0 (6.0-8.3) gm/dl Albumin 3.3 L (3.4-5.0) gm/dl Globulin 2.7 (2.5-4.0) gm/dl Albumin/Globulin Ratio 1.2 (0.9-2) Lipase (11-82) U/L Procalcitonin (0-0.5) ng/ml Urine Color Urine Appearance (Clear) Urine pH (4.5-7.5) Ur Specific [place] (1.000-1.030) Urine Protein (Negative) Urine Glucose (UA) (Negative) Urine Ketones (Negative) Urine Blood (Negative) Urine Nitrite (Negative) Urine Bilirubin (Negative) Urine Urobilinogen (Negative) Ur Leukocyte Esterase (Negative) Urine Test (Negative) SARS-CoV-2, RNA, NAAT (NEGATIVE) Blood Type Antibody Screen 08/28/21 08/28/21 08/29/21 Range/Units 23:17 23:17 00:03 WBC (4.8-10.8) K/uL RBC (4.2-5.4) M/uL Hgb (12.0-16.0) g/dL Hct (37-47) % MCV (80-100) fL MCH (25-34) pg MCHC (32-36) g/dL RDW Std Deviation (36.4-46.3) fL RDW Coeff of Naomi (11.5-14.5) % Plt Count (130-400) K/uL MPV (7.4-10.4) fL Immature Gran % (Auto) % Neut % (Auto) % Lymph % (Auto) % [place] % (Auto) % Eos % (Auto) % Baso % (Auto) % Neut # (Auto) (1.4-6.5) K/uL Lymph # (Auto) (1.2-3.4) K/uL [place] # (Auto) (0.11-0.59) K/uL Eos # (Auto) (0-0.5) K/uL Baso # (Auto) (0-0.2) K/uL Immature Gran # (Auto) (0.00-0.02) K/uL Hypochromasia Anisocytosis Microcytosis Target Cells Sodium (136-145) mmol/L Potassium (3.5-5.1) mmol/L Chloride (98-107) mmol/L Carbon Dioxide (21-32) mmol/L Anion Gap (3-11) BUN (6-23) mg/dl Creatinine (0.6-1.2) mg/dl Est Cr Clr Drug Dosing ml/min Est GFR ( Amer) ml/min Est GFR (Non-Af Amer) ml/min BUN/Creatinine Ratio (10-20) Glucose (70-99(Fasting)) mg/dl Lactate (0.4-2.0) mmol/L Calcium (8.5-10.1) mg/dl Magnesium (1.7-2.4) mg/dl Total Bilirubin (0.2-1.0) mg/dl AST (13-39) U/L ALT (7-52) U/L Alkaline Phosphatase (34-104) U/L Total Protein (6.0-8.3) gm/dl Albumin (3.4-5.0) gm/dl Globulin (2.5-4.0) gm/dl Albumin/Globulin Ratio (0.9-2) Lipase 11 (11-82) U/L Procalcitonin 0.50 (0-0.5) ng/ml Urine Color Urine Appearance (Clear) Urine pH (4.5-7.5) Ur Specific [place] (1.000-1.030) Urine Protein (Negative) Urine Glucose (UA) (Negative) Urine Ketones (Negative) Urine Blood (Negative) Urine Nitrite (Negative) Urine Bilirubin (Negative) Urine Urobilinogen (Negative) Ur Leukocyte Esterase (Negative) Urine Test (Negative) SARS-CoV-2, RNA, NAAT (NEGATIVE) Blood Type B Positive Antibody Screen NEGATIVE 08/29/21 08/29/21 08/29/21 Range/Units 01:39 01:39 01:45 WBC (4.8-10.8) K/uL RBC (4.2-5.4) M/uL Hgb (12.0-16.0) g/dL Hct (37-47) % MCV (80-100) fL MCH (25-34) pg MCHC (32-36) g/dL RDW Std Deviation (36.4-46.3) fL RDW Coeff of Naomi (11.5-14.5) % Plt Count (130-400) K/uL MPV (7.4-10.4) fL Immature Gran % (Auto) % Neut % (Auto) % Lymph % (Auto) % [place] % (Auto) % Eos % (Auto) % Baso % (Auto) % Neut # (Auto) (1.4-6.5) K/uL Lymph # (Auto) (1.2-3.4) K/uL [place] # (Auto) (0.11-0.59) K/uL Eos # (Auto) (0-0.5) K/uL Baso # (Auto) (0-0.2) K/uL Immature Gran # (Auto) (0.00-0.02) K/uL Hypochromasia Anisocytosis Microcytosis Target Cells Sodium (136-145) mmol/L Potassium (3.5-5.1) mmol/L Chloride (98-107) mmol/L Carbon Dioxide (21-32) mmol/L Anion Gap (3-11) BUN (6-23) mg/dl Creatinine (0.6-1.2) mg/dl Est Cr Clr Drug Dosing ml/min Est GFR ( Amer) ml/min Est GFR (Non-Af Amer) ml/min BUN/Creatinine Ratio (10-20) Glucose (70-99(Fasting)) mg/dl Lactate 1.2 (0.4-2.0) mmol/L Calcium (8.5-10.1) mg/dl Magnesium (1.7-2.4) mg/dl Total Bilirubin (0.2-1.0) mg/dl AST (13-39) U/L ALT (7-52) U/L Alkaline Phosphatase (34-104) U/L Total Protein (6.0-8.3) gm/dl Albumin (3.4-5.0) gm/dl Globulin (2.5-4.0) gm/dl Albumin/Globulin Ratio (0.9-2) Lipase (11-82) U/L Procalcitonin 0.76 H (0-0.5) ng/ml Urine Color Urine Appearance (Clear) Urine pH (4.5-7.5) Ur Specific [place] (1.000-1.030) Urine Protein (Negative) Urine Glucose (UA) (Negative) Urine Ketones (Negative) Urine Blood (Negative) Urine Nitrite (Negative) Urine Bilirubin (Negative) Urine Urobilinogen (Negative) Ur Leukocyte Esterase (Negative) Urine Test Negative (Negative) SARS-CoV-2, RNA, NAAT (NEGATIVE) Blood Type Antibody Screen 08/29/21 08/29/21 Range/Units 01:45 02:52 WBC (4.8-10.8) K/uL RBC (4.2-5.4) M/uL Hgb (12.0-16.0) g/dL Hct (37-47) % MCV (80-100) fL MCH (25-34) pg MCHC (32-36) g/dL RDW Std Deviation (36.4-46.3) fL RDW Coeff of Naomi (11.5-14.5) % Plt Count (130-400) K/uL MPV (7.4-10.4) fL Immature Gran % (Auto) % Neut % (Auto) % Lymph % (Auto) % [place] % (Auto) % Eos % (Auto) % Baso % (Auto) % Neut # (Auto) (1.4-6.5) K/uL Lymph # (Auto) (1.2-3.4) K/uL [place] # (Auto) (0.11-0.59) K/uL Eos # (Auto) (0-0.5) K/uL Baso # (Auto) (0-0.2) K/uL Immature Gran # (Auto) (0.00-0.02) K/uL Hypochromasia Anisocytosis Microcytosis Target Cells Sodium (136-145) mmol/L Potassium (3.5-5.1) mmol/L Chloride (98-107) mmol/L Carbon Dioxide (21-32) mmol/L Anion Gap (3-11) BUN (6-23) mg/dl Creatinine (0.6-1.2) mg/dl Est Cr Clr Drug Dosing ml/min Est GFR ( Amer) ml/min Est GFR (Non-Af Amer) ml/min BUN/Creatinine Ratio (10-20) Glucose (70-99(Fasting)) mg/dl Lactate (0.4-2.0) mmol/L Calcium (8.5-10.1) mg/dl Magnesium (1.7-2.4) mg/dl Total Bilirubin (0.2-1.0) mg/dl AST (13-39) U/L ALT (7-52) U/L Alkaline Phosphatase (34-104) U/L Total Protein (6.0-8.3) gm/dl Albumin (3.4-5.0) gm/dl Globulin (2.5-4.0) gm/dl Albumin/Globulin Ratio (0.9-2) Lipase (11-82) U/L Procalcitonin (0-0.5) ng/ml Urine Color Yellow Urine Appearance Clear (Clear) Urine pH 7.0 (4.5-7.5) Ur Specific [place] > 1.045 H (1.000-1.030) Urine Protein Negative (Negative) Urine Glucose (UA) Negative (Negative) Urine Ketones Negative (Negative) Urine Blood Negative (Negative) Urine Nitrite Negative (Negative) Urine Bilirubin Negative (Negative) Urine Urobilinogen Negative (Negative) Ur Leukocyte Esterase Negative (Negative) Urine Test (Negative) SARS-CoV-2, RNA, NAAT NEGATIVE (NEGATIVE) Blood Type Antibody Screen Imaging Data My Impression: X-ray: I interpreted the following studies. Chest: A single view study of the chest was reviewed and was negative for cardiomegaly, focal infiltrate, effusion, pulmonary edema, or wide mediastinum. Radiologist's Impression: Abdomen/Pelvis CT 08/28/21 23:45 CT abd pelvis IV con only CLINICAL HISTORY: fever, abd pain, s/p colonoscopy today TECHNIQUE: Helical axial images of the abdomen and pelvis were obtained and displayed. Automated dose lowering techniques and/or adjustment according to patient size were utilized for this exam. This exam was performed with intravenous contrast. COMPARISON: Comparison is made to CT abdomen pelvis 02/08/2018 FINDINGS: Lower chest: No acute abnormality Liver: Unremarkable. No focal lesions are seen. Gallbladder and biliary tree: No calcified gallstones. Normal caliber wall. Physiologic prominence of the biliary ducts is noted. Pancreas: Unremarkable, no focal lesions. Spleen: Unremarkable. Adrenals: Unremarkable. Kidneys and ureters: Unremarkable. Bladder: Unremarkable. Reproductive organs: Unremarkable. Bowel: There is mild thickening of the cecum. The appendix is not definitely visualized however no secondary signs of appendicitis are seen. Postsurgical changes of gastric bypass are seen. Lymph nodes Retroperitoneal: Unremarkable. Mesenteric: Unremarkable. Pelvic: Unremarkable. Peritoneum: Trace pelvic free fluid is seen. Vessels: Atherosclerotic calcifications are seen. Abdominal wall: Unremarkable. Bones: Unremarkable. IMPRESSION: Mild cecal thickening which may be reactive in this patient with recent colonoscopy. ACT 112: Negative or not required by law. Electronically signed by: Carlo Nieto M.D. 08/29/2021 8:21 AM Lumbar Spine MRI 08/29/21 03:41 MRI OF THE LUMBAR SPINE WITH AND WITHOUT CONTRAST CLINICAL HISTORY: Back pain. COMPARISON STUDY: Lumbar spine CT July 04, 2013. TECHNIQUE: Utilizing a 1.5 Olena magnet and dedicated coil, multiplanar, multiecho imaging of the lumbar spine was performed before and after uneventful IV administration of 6.5 mL of Gadavist. FINDINGS: For purposes of numbering on this exam, the L5-S1 disc space is assigned to axial image 23 of 25. Alignment of the lumbar spine is anatomic. Vertebral body heights are maintained. The conus terminates at the mid L2 level. No intracanalicular mass or fluid collection is present. There is no abnormal enhancement within the lumbar canal. Paravertebral soft tissues are unremarkable. There is subcutaneous edema of the lower back. 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 L1-2: The central canal and neural foramen are patent L2-3: The central canal and neural foramen are patent. L3-4: The central canal and neural foramen are patent. L4-5: The central canal and neural foramen are patent. There is mild facet arthrosis. L5-S1: There is a central annular tear with tiny central disc protrusion. There is facet arthrosis. Central canal and neural foramen are patent. IMPRESSION: 1. No central canal and neural foraminal stenosis. Tiny central disc protrusion at L5-S1. 2. Mild lower lumbar spine facet arthrosis. 3. No significant abnormality within the lumbar spine. 4. Subcutaneous edema of the lower back. ACT 112: Negative or not required by law. Electronically signed by: Kevin Shepherd M.D. 08/29/2021 8:[address] abdomen pelvis with contrast: Comparison to February 08, 2018. There are surgical jessenia from previous gastric bypass surgery. Bowel loops are nondilated. No pneumoperitoneum or abscess is identified. Small amount of fluid on the mid right colon and slight wall thickening suggesting mild colitis. The remaining of the colon appears within normal limits. There is a trace amount of free fluid in the cul-de-sac. Slight biliary duct prominence post cholecystectomy. No choledocholithiasis is seen. The liver, pancreas, spleen, adrenal glands, and kidneys appear within normal limits. The aorta is mildly calcified but nondilated. The uterus and adnexa appear within normal limits. The urinary bladder is partially distended and unremarkable. Skeletal structures appear unremarkable. Radiologist: Mihai Swenson MD ECG Data Attestation: I personally reviewed and interpreted this ECG as follows: Indication: + abdominal pain Rate (beats per minute): 99 Rhythm: + normal sinus ECG Intervals/blocks: + Normal QRS and + Normal QT ECG [place]: + Normal ECG ST segments: + Normal ST segments MDM Narrative This is a 40-year-old female presents emergency department complaining of abdominal pain, nausea, and fever status post EGD and colonoscopy earlier today. A septic evaluation was initially taken on arrival here, patient was hemodynamically stable. Patient then ultimately sent for CT imaging. Mild colitis noted, possibly reactive secondary to colonoscopy, no evidence of perforation or active bleeding. Patient's initial lab reassuring however initial procalcitonin borderline. After patient was hydrated, given Tylenol did report some slight improvement, she had a recurrence of pain and persistent nausea. Additional medications were added. Patient then began to feel as though she was developing a fever again. Repeat lactic acid and procalcitonin were performed, and procalcitonin not elevated. Zosyn was added, blood cultures were already pending. Given persistent symptoms, abnormal pro calcitonin, and risk given recent procedures of transient bacteremia, I discussed with her additional inpatient monitoring and evaluation. Patient states LFTs are seco ndary to recent diagnosis of hepatitis C. She states her anemia has been ongoing and that was the reason for EGD and colonoscopy. No indication at this time for urgent blood transfusion. Case discussed with hospitalist for additional evaluation and management. An order was placed for continuous cardiac monitoring. The monitor shows a rate of _78_ with _normal sinus_ rhythm. Impression & Plan Abdominal pain, Nausea, S/P colonoscopy, Anemia, Abnormal LFTs, Fever, Elevated procalcitonin Discharge Plan Visit Data Chief Complaint: GI Assessment Stated Complaint: STOMACH AND BACK PAIN ED Provider: Flor Suggs Discharge Problem: Abdominal pain, Nausea, S/P colonoscopy, Anemia, Abnormal LFTs, Fever, Elevated procalcitonin Patient Disposition: Admitted As Inpatient Discharge Instructions Interventions: ED Discharge Assessment Last Done: 08/29/21 04:35
[2021-08-29] MEDS ORDERED: OPTIRAY 320 100ml IV ONE (00:32)
[2021-08-29] MEDS ORDERED: SODIUM CHLORIDE 0.9% 1000ML 1,000 ML IV SCH (01:15)
[2021-08-29] MEDS ORDERED: METOCLOPRAMIDE HCL INJ 5 MG/ML 2 ML VIAL IV ONE (01:15)
[2021-08-29 01:54] LABS: Appearance Urine Clear (Clear); Bilirubin Urine Negative (Negative); Blood Urine Negative (Negative); Color Urine Yellow; Glucose Urine UA Negative (Negative); Ketones Urine Negative (Negative); Leukocyte Esterase Urine Negative (Negative); Nitrite Urine Negative (Negative); Pregnancy Test, Urine Negative (Negative); Protein Urine Negative (Negative); Specific Gravity Urine > 1.045 (1.000-1.030); Urobilinogen Urine Negative (Negative)
[2021-08-29] MEDS ORDERED: PIPERACILL/TAZOBAC CONSULT ACTIVE PRN (02:27)
[2021-08-29] MEDS ORDERED: PIPERACILLIN/TAZOBACTAM 4.5 GM/120 ML BAG IV ONE (02:27)
[2021-08-29] MEDS ORDERED: PANTOprazole 40 MG in SYRINGE 0 ML IV ONE (02:45)
[2021-08-29] MEDS ORDERED: KETOROLAC TROMETHAMINE 15 MG/ML VIAL IV ONE (02:45)
[2021-08-29] MEDS ORDERED: ONDANSETRON INJ 2 MG/ML 2 ML VIAL IV STA (02:56)
--- NOTE | 2021-08-29 03:10 | History & Physical Report ---
Date of Service August 29, 2021 Assessment & Plan (1) Sepsis: Plan: Possible sources : Colitis rule out C. difficile, recent endoscopy Spine infection given back pain complaints Endocarditis given history IVDU hx gastric bypass mood disorder, at baseline hepatitis C antibody positivity Acute on chronic anemia secondary to occult GI bleed Hypokalemia secondary to diarrhea ongoing tobacco abuse Medical telemetry CS, Daptomycin, Zosyn for now Stool C. difficile,Flagyl 1 dose for presumptive C. difficile given sepsis criteria (Dificid course if C. difficile positive) Thoracic and lumbar MRI for back pain complaints to rule out infection Further management pending work-up results HCV RNA with a.m. labs, outpatient GI consult for abnormal LFTs Replace potassium Nicotine patch as needed DVT prophylaxis. Lovenox subcu Full code Text document was generated using [employer] voice recognition software. It may contain grammatical or spelling errors. Kindly contact undersigned for clarification of any documentation item in question. History of Present Illness Chief Complaint: Fever, chills, abdominal pain, back pain Primary Care Provider: Nata Baker DO History obtained from patient and records. Medical history significant for gastric bypass, GERD, mood disorder, narcotic abuse as per records, hepatitis C antibody positivity, anemia (recent baseline hemoglobin of 10), ongoing tobacco abuse Last confinement June 2017 for hypoglycemic seizure. Patient admitted at [facility] at [place], [place] 3 weeks ago after patient found to be anemic with a hemoglobin of 7 on lab work drawn prior to admission at [facility] drug rehab facility. Patient claims last time she used narcotics was 3 months ago. Patient also found to have pancreatitis during admission. Denies recent alcohol intake. FOBT was positive. Patient received blood transfusion for anemia. Patient left hospital AGAINST MEDICAL ADVICE. 2 weeks ago, patient followed up at PCP's office. Persistent abdominal and back pain especially with eating. Outpatient CT abdomen pelvis was negative for pancreatitis. Focal ileus or partial small bowel obstruction noted. Hepatosplenomegaly noted as well. Outpatient hemoglobin noted to be 10.2. Low serum iron noted. FOBT still positive. Abnormal LFTs noted. Hepatitis C antibody was noted to be positive. HCV RNA testing recommended. Patient directed to [facility] ER for evaluation but subsequently discharged. Outpatient EGD, colonoscopy for GI bleed recommended by [facility] on outpatient evaluation 10 days ago. Patient underwent outpatient endoscopy yesterday. EGD showed normal esophagus. Alison-en-Y gastrojejunostomy with anastomosis characterized by healthy-appearing mucosa. Colonoscopy showed diverticulosis, internal hemorrhoids and polyp. Repeat colonoscopy after 1 year recommended because of poor bowel preparation as per note. A few hours after procedure at home, patient noted achy epigastric pain with nausea and loose stools. Patient also with back pain somewhat worse with rola on. No radiation to lower legs. No incontinence symptoms. Patient denies chest pain, cough, S OB, headache. Fever chills noted at home. Patient given Zosyn at the ER for possible sepsis. MEDICAL HISTORY: As above. SURGERIES: Gastric bypass surgery, tonsillectomy, adenectomy, hiatal hernia surgery, cholecystectomy, FAMILY HISTORY: Heart disease, breast cancer, DM, stroke PERSONAL AND SOCIAL HISTORY: Half pack daily. No chronic intake of alcoholic beverages. Prior work a [employer], currently unemployed. Allergies Allergy/AdvReac Type Severity Reaction Status Date / Time bupropion Allergy Intermediate HIVES Verified 08/28/21 23:19 hydromorphone AdvReac Intermediate VOMITING Verified 08/28/21 23:19 NSAIDS (Non-Steroidal AdvReac Unknown CONTRAINDICATED Verified 08/28/21 23:19 Anti-Inflamma D/T GASTRIC BYPASS Home Medications Medication Instructions Recorded Confirmed Type omeprazole 40 mg capsule,delayed 40 mg PO BID 02/14/18 08/28/21 History release buspirone 10 mg tablet 10 mg PO BID 08/28/21 08/28/21 History fluoxetine 20 mg capsule (Prozac) 20 mg PO DAILY 08/28/21 08/28/21 History trazodone 100 mg tablet 100 mg PO HS 08/28/21 08/28/21 History Past Med/Surg History Medical History Depression GERD (gastroesophageal reflux disease) Surgical History H/O gastric bypass History of cholecystectomy Hx of tonsillectomy Social History Smoking Status: Current every day smoker Tobacco Type: Cigarettes Cigarettes Per Day: 4-5 per day; Do You Dip or Chew Tobacco: No; Hx Alcohol Use: No Hx Substance Use: No Preferred Language: Tamazight Communication Ability: Effective [employer] 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: No Beliefs That Will Affect Care: None Current Living Situation: Alone Feels Safe at Home: Yes Safety Concerns: Feels Safe At This Time Review of Systems Review of Systems: As per HPI, all 10 systems reviewed, all other ROS negative Physical Exam Physical Exam: GENERAL: uncomfortable, no respiratory distress SKIN: Pallor, warm HEENT: Pale palpebral conjunctivae, no ptosis, dry buccal mucosa NECK : Supple, no tenderness CHEST : CTA, no tenderness HEART : RRR, no obvious murmurs ABDOMEN: Some distention, epigastric tenderness BACK : Mid and low back tenderness, negative SLR EXTREMITIES : No LE swelling/tenderness, no other conspicuous deformities noted NEUROLOGIC : Coherent, no facial asymmetry, no other gross focality Results & Data Results & Data ([facility]) Vital Signs (Past 12 Hours) Vital Signs Temp Pulse Pulse Resp BP BP Pulse Ox 08/29/21 02:50 36.5 C 08/29/21 02:35 36.5 C 74 17 107/63 99 08/29/21 02:30 17 99 08/29/21 02:00 17 99 08/29/21 01:30 74 17 99 08/29/21 01:06 36.9 C 08/29/21 01:00 74 18 109/68 99 08/29/21 00:48 78 18 99 08/29/21 00:30 76 18 109/64 100 08/29/21 00:00 98 H 18 97 08/28/21 23:21 19 97 08/28/21 23:08 99 H 19 98 08/28/21 23:05 99 H 19 97 08/28/21 22:42 37.7 C H 101 H 16 138/74 98 Laboratory Results Laboratory Results WBC 5.47 K/uL (4.8-10.8) 08/28/21 23:17 RBC 4.09 M/uL (4.2-5.4) L 08/28/21 23:17 Hgb 7.8 g/dL (12.0-16.0) L 08/28/21 23:17 Hct 27.0 % (37-47) L 08/28/21 23:17 MCV 66.0 fL (80-100) L 08/28/21 23:17 MCH 19.1 pg (25-34) L 08/28/21 23:17 MCHC 28.9 g/dL (32-36) L 08/28/21 23:17 RDW Std Deviation 59.3 fL (36.4-46.3) H 08/28/21 23:17 RDW Coeff of Naomi 24.9 % (11.5-14.5) H 08/28/21 23:17 Plt Count 240 K/uL (130-400) 08/28/21 23:17 MPV 10.1 fL (7.4-10.4) 08/28/21 23:17 Immature Gran % (Auto) 0.4 % 08/28/21 23:17 Neut % (Auto) 82.7 % 08/28/21 23:17 Lymph % (Auto) 8.8 % 08/28/21 23:17 Maverick % (Auto) 7.3 % 08/28/21 23:17 Eos % (Auto) 0.4 % 08/28/21 23:17 Baso % (Auto) 0.4 % 08/28/21 23:17 Neut # (Auto) 4.53 K/uL (1.4-6.5) 08/28/21 23:17 Lymph # (Auto) 0.48 K/uL (1.2-3.4) L 08/28/21 23:17 [place] # (Auto) 0.40 K/uL (0.11-0.59) 08/28/21 23:17 Eos # (Auto) 0.02 K/uL (0-0.5) 08/28/21 23:17 Baso # (Auto) 0.02 K/uL (0-0.2) 08/28/21 23:17 Immature Gran # (Auto) 0.02 K/uL (0.00-0.02) 08/28/21 23:17 Hypochromasia Present 08/28/21 23:17 Anisocytosis Present 08/28/21 23:17 Microcytosis Present 08/28/21 23:17 Target Cells 1+ 08/28/21 23:17 Sodium 139 mmol/L (136-145) 08/28/21 23:17 Potassium 3.4 mmol/L (3.5-5.1) L 08/28/21 23:17 Chloride 108 mmol/L (98-107) H 08/28/21 23:17 Carbon Dioxide 24 mmol/L (21-32) 08/28/21 23:17 Anion Gap 7 (3-11) 08/28/21 23:17 BUN 5 mg/dl (6-23) L 08/28/21 23:17 Creatinine 0.47 mg/dl (0.6-1.2) L 08/28/21 23:17 Est Cr Clr Drug Dosing 149.1 ml/min 08/28/21 23:17 Est GFR ( Amer) 142.2 ml/min 08/28/21 23:17 Est GFR (Non-Af Amer) 122.7 ml/min 08/28/21 23:17 BUN/Creatinine Ratio 10.6 (10-20) 08/28/21 23:17 Glucose 159 mg/dl (70-99(Fasting)) H 08/28/21 23:17 Lactate 1.2 mmol/L (0.4-2.0) 08/29/21 01:39 Calcium 7.9 mg/dl (8.5-10.1) L 08/28/21 23:17 Magnesium 1.8 mg/dl (1.7-2.4) 08/28/21 23:17 Total Bilirubin 0.6 mg/dl (0.2-1.0) 08/28/21 23:17 AST 237 U/L (13-39) H 08/28/21 23:17 ALT 318 U/L (7-52) H 08/28/21 23:17 Alkaline Phosphatase 147 U/L (34-104) H 08/28/21 23:17 Total Protein 6.0 gm/dl (6.0-8.3) 08/28/21 23:17 Albumin 3.3 gm/dl (3.4-5.0) L 08/28/21 23:17 Globulin 2.7 gm/dl (2.5-4.0) 08/28/21 23:17 Albumin/Globulin Ratio 1.2 (0.9-2) 08/28/21 23:17 Procalcitonin 0.76 ng/ml (0-0.5) H 08/29/21 01:39 Urine Color Yellow 08/29/21 01:45 Urine Appearance Clear (Clear) 08/29/21 01:45 Urine pH 7.0 (4.5-7.5) 08/29/21 01:45 Ur Specific [place] > 1.045 (1.000-1.030) H 08/29/21 01:45 Urine Protein Negative (Negative) 08/29/21 01:45 Urine Glucose (UA) Negative (Negative) 08/29/21 01:45 Urine Ketones Negative (Negative) 08/29/21 01:45 Urine Blood Negative (Negative) 08/29/21 01:45 Urine Nitrite Negative (Negative) 08/29/21 01:45 Urine Bilirubin Negative (Negative) 08/29/21 01:45 Urine Urobilinogen Negative (Negative) 08/29/21 01:45 Ur Leukocyte Esterase Negative (Negative) 08/29/21 01:45 Urine Test Negative (Negative) 08/29/21 01:45 Blood Type B Positive 08/29/21 00:03 Antibody Screen NEGATIVE 08/29/21 00:[address] abdomen pelvis initial read: There is surgical jessenia fromprevious gastric bypass surgery. Bowel loops are nondilated. No pneumoperitoneumor abscess is identified. Small amount of fluid in the mid right colon and slight wall thickening suggesting mild colitis. The remaining of the colon appearswithin normal limits. There is a trace amount of free fluid in the [place]. Slight biliaryduct prominence post cholecystectomy. No choledocholithiasis is seen. The liver, pancreas, spleen, adrenal glands, and kidneys appear within normal limits. The aorta is mildlycalcified but nondilated. The uterus and adnexa appear within normal limits. The urinarybladder is partiallydistended and unremarkable. Skeletal structures appear unremarkable Chest x-ray as per my interpretation: Atelectasis, elevated right hemidiaphragm EKG as per my interpretation : Rate 100, NSR, normal axis, no ischemia
[2021-08-29] MEDS ORDERED: POTASSIUM CHLORIDE CRTAB 20 MEQ TABCR PO STA ×2 (03:17→08:52)
[2021-08-29] MEDS ORDERED: metroNIDAZOLE 500 MG TAB PO STA (03:45)
[2021-08-29] MEDS ORDERED: DAPTOmycin 350 MG in SYRINGE 0 ML IV STA (04:00)
[2021-08-29] MEDS ORDERED: GADOBUTROL 65ML VIAL IV ONE (05:23)
[2021-08-29] MEDS ORDERED: PROMETHAZINE HCL 12.5 MG in SODIUM CHLORIDE 0.9% 50 ML IV PRN (05:49)
[2021-08-29 07:40] LABS: Albumin Globulin Ratio 1.1 (0.9-2); Albumin Level 2.8 gm/dl (3.4-5.0); BUN Creatinine Ratio 11.9 (10-20); Bilirubin,Total 0.6 mg/dl (0.2-1.0); Calcium 7.5 mg/dl (8.5-10.1); Creatinine Clr Calc Pharmacy 167.4 ml/min; Est GFR (African American) 147.6 ml/min; Est GFR (Non-African American) 127.3 ml/min; Globulin 2.5 gm/dl (2.5-4.0); Potassium 3.5 mmol/L (3.5-5.1); Total Protein 5.3 gm/dl (6.0-8.3)
[2021-08-29 07:52] LABS: Hematocrit (blood only) 25.7 % (37-47); Hemoglobin 7.3 g/dL (12.0-16.0); Mean Corpuscular Hemoglobin 18.9 pg (25-34); Mean Corpuscular Hgb Conc 28.4 g/dL (32-36); Mean Corpuscular Volume 66.6 fL (80-100); Mean Platelet Volume 9.3 fL (7.4-10.4); Platelet Count 220 K/uL (130-400); RDW Standard Deviation 59.3 fL (36.4-46.3); Red Blood Count 3.86 M/uL (4.2-5.4); White Blood Count 4.97 K/uL (4.8-10.8)
[2021-08-29 07:54] LABS: Basophils # (auto) 0.01 K/uL (0-0.2); Basophils % (auto) 0.2 %; Eosinophils # (auto) 0.06 K/uL (0-0.5); Eosinophils % (auto) 1.2 %; Hypochromasia Present; Immature Granulocytes # (auto) 0.01 K/uL (0.00-0.02); Immature Granulocytes % (auto) 0.2 %; Lymphocytes # (auto) 1.04 K/uL (1.2-3.4); Lymphocytes % (auto) 20.9 %; Microcytosis Present; Monocytes # (auto) 0.48 K/uL (0.11-0.59); Monocytes % (auto) 9.7 %; Neutrophils # (auto) 3.37 K/uL (1.4-6.5); Neutrophils % (auto) 67.8 %
--- NOTE | 2021-08-29 08:17 | XRay Report ---
SINGLE VIEW CHEST CLINICAL HISTORY: Sepsis. FINDINGS: An AP, portable, upright chest radiograph is compared to study dated 07/08/2017. The cardiom ediastinal silhouette is unremarkable. There is mild bibasilar atelectasis. The lungs and pleural spa sha are otherwise clear. No pneumothorax is seen. The bony thorax is grossly intact. IMPRESSION: No active disease in the chest. ACT 112: Negative or not required by law. Electronically signed by: Ramesh Rizo M.D. 08/29/2021 8:15 AM
--- NOTE | 2021-08-29 08:19 | Magnetic Resonance Report ---
MRI OF THE THORACIC SPINE WITH AND WITHOUT CONTRAST CLINICAL HISTORY: Back pain. No recent trauma. COMPARISON: None. TECHNIQUE: Utilizing a 1.5 Olena magnet and dedicated coil, multiplanar, multiecho imaging of the th oracic spine was performed before and after the intravenous administration of 6.5 cc. FINDINGS: Alignment of the thoracic spine is anatomic. Vertebral body heights are maintained. There i s no marrow edema or marrow replacement. Thoracic cord signal and caliber are normal. There is no int racanalicular mass or fluid collection. No disc herniations are present. The central canal and neural foramen within the thoracic spine are patent. There is no abnormal enhancement within the thoracic c anal. Paravertebral soft tissues are unremarkable. IMPRESSION: Unremarkable MRI of the thoracic spine. ACT 112: Negative or not required by law. Electronically signed by: Kevin Shepherd M.D. 08/29/2021 8:18 AM
--- NOTE | 2021-08-29 08:23 | CT Scan Report ---
CT abd pelvis IV con only CLINICAL HISTORY: fever, abd pain, s/p colonoscopy today TECHNIQUE: Helical axial images of the abdomen and pelvis were obtained and displayed. Automated dose lowering techniques and/or adjustment according to patient size were utilized for this exam. This e xam was performed with intravenous contrast. COMPARISON: Comparison is made to CT abdomen pelvis 02/08/2018 FINDINGS: Lower chest: No acute abnormality Liver: Unremarkable. No focal lesions are seen. Gallbladder and biliary tree: No calcified gallstones. Normal caliber wall. Physiologic prominence of the biliary ducts is noted. Pancreas: Unremarkable, no focal lesions. Spleen: Unremarkable. Adrenals: Unremarkable. Kidneys and ureters: Unremarkable. Bladder: Unremarkable. Reproductive organs: Unremarkable. Bowel: There is mild thickening of the cecum. The appendix is not definitely visualized however no se condary signs of appendicitis are seen. Postsurgical changes of gastric bypass are seen. Lymph nodes Retroperitoneal: Unremarkable. Mesenteric: Unremarkable. Pelvic: Unremarkable. Peritoneum: Trace pelvic free fluid is seen. Vessels: Atherosclerotic calcifications are seen. Abdominal wall: Unremarkable. Bones: Unremarkable. IMPRESSION: Mild cecal thickening which may be reactive in this patient with recent colonoscopy. ACT 112: Negative or not required by law. Electronically signed by: Carlo Nieto M.D. 08/29/2021 8:21 AM
--- NOTE | 2021-08-29 08:23 | Magnetic Resonance Report ---
MRI OF THE LUMBAR SPINE WITH AND WITHOUT CONTRAST CLINICAL HISTORY: Back pain. COMPARISON STUDY: Lumbar spine CT July 04, 2013. TECHNIQUE: Utilizing a 1.5 Olena magnet and dedicated coil, multiplanar, multiecho imaging of the evan mbar spine was performed before and after uneventful IV administration of 6.5 mL of Gadavist. FINDINGS: For purposes of numbering on this exam, the L5-S1 disc space is assigned to axial image 23 of 25. Ali gnment of the lumbar spine is anatomic. Vertebral body heights are maintained. The conus terminates a t the mid L2 level. No intracanalicular mass or fluid collection is present. There is no abnormal enh ancement within the lumbar canal. Paravertebral soft tissues are unremarkable. There is subcutaneous edema of the lower back. 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 L1-2: The central canal and neural foramen are patent L2-3: The central canal and neural foramen are patent. L3-4: The central canal and neural foramen are patent. L4-5: The central canal and neural foramen are patent. There is mild facet arthrosis. L5-S1: There is a central annular tear with tiny central disc protrusion. There is facet arthrosis. C entral canal and neural foramen are patent. IMPRESSION: 1. No central canal and neural foraminal stenosis. Tiny central disc protrusion at L5-S1. 2. Mild lower lumbar spine facet arthrosis. 3. No significant abnormality within the lumbar spine. 4. Subcutaneous edema of the lower back. ACT 112: Negative or not required by law. Electronically signed by: Kevin Shepherd M.D. 08/29/2021 8:22 AM
[2021-08-29] MEDS: PANTOprazole 40 MG TAB PO SCH ×2 (08:27→20:33)
[2021-08-29] MEDS: FLUoxetine HCL 20 MG CAP PO SCH (08:28)
[2021-08-29] MEDS: busPIRone 5 MG TAB PO SCH ×2 (08:28→20:32)
[2021-08-29] MEDS: PIPERACILLIN/TAZOBACTAM 3.375 GM in DEXTROSE 5% 100 ML IV SCH ×2 (09:36→16:39)
--- NOTE | 2021-08-29 09:46 | Electrocardiogram Report ---
Test Reason : Blood Pressure : / mmHG Vent. Rate : 099 BPM Atrial Rate : 099 BPM P-R Int : 118 ms QRS Dur : 078 ms QT Int : 354 ms P-R-T Axes : 045 010 042 degrees QTc Int : 454 ms Normal sinus rhythm Normal ECG When compared with ECG of 08-JUL-2017 16:34, No significant change was found Confirmed by Ash Lui ([id number]) on 08/29/2021 9:46:30 AM Referred By: Nata Baker Confirmed By:Ash Lui
[2021-08-29 10:31] LABS: Ferritin 6.8 ng/ml (8-388)
[2021-08-29 10:36] LABS: Folate (Folic Acid) 22.14 ng/ml (>5.38)
[2021-08-29] MEDS: oxyCODONE HCL IR 5 MG TAB (IMMEDIATE RELEASE) PO PRN ×2 (12:00→17:05)
[2021-08-29 12:48] LABS: Amphetamines+Metham, Urine Neg (Neg); Barbiturates, Urine Neg (Neg); Benzodiazepine, Urine Neg (Neg); Cocaine, Urine Neg (Neg); MDMA (Ecstacy), Urine Neg (Neg); Methadone, Urine Neg (Neg); Opiate, Urine Neg (Neg); Phencyclidine, Urine Neg (Neg)
--- NOTE | 2021-08-29 14:56 | Orthopedic Consultation ---
Date of Consultation August 29, 2021 Assessment & Plan (1) Acute back pain: Assessment acute back pain. Plan at length because of this patient reviewing MRI findings. The thoracic and lumbar MRIs are essentially normal. There certainly appropriate for 40-year-old female. This most likely is a sprain strain phenomenon the etiology which I cannot explain. However with her history of IV drug abuse there is always concern for an indolent infection not yet appreciated on imaging. If her symptoms continue despite physical therapy and the passage of time related to repeat MRI in the next 2 to 4 weeks. In the interim I think a course of therapy would be reasonable while she is at the [facility]. History of Present Illness Reason for Consultation: Back pain Attending Physician: Fernando Crawley MD History of Present Illness This is a 40-year-old female presents with severe onset of lumbosacral back pain. She is status post EGD. She states that she was stretching at home and had the sudden onset of back pain. She denies any significant trauma fall or event. She denies any strenuous activity. She denies any buttock pain or bilateral leg pain. Allergies Allergy/AdvReac Type Severity Reaction Status Date / Time bupropion Allergy Intermediate HIVES Verified 08/28/21 23:19 hydromorphone AdvReac Intermediate VOMITING Verified 08/28/21 23:19 NSAIDS (Non-Steroidal AdvReac Unknown CONTRAINDICATED Verified 08/28/21 23:19 Anti-Inflamma D/T GASTRIC BYPASS Home Medications Medication Instructions Recorded Confirmed Type omeprazole 40 mg capsule,delayed 40 mg PO BID 02/14/18 08/28/21 History release buspirone 10 mg tablet 10 mg PO BID 08/28/21 08/28/21 History fluoxetine 20 mg capsule (Prozac) 20 mg PO DAILY 08/28/21 08/28/21 History trazodone 100 mg tablet 100 mg PO HS 08/28/21 08/28/21 History Patient History Medical History Depression GERD (gastroesophageal reflux disease) Surgical History H/O gastric bypass History of cholecystectomy Hx of tonsillectomy Social History Smoking Status: Current every day smoker Tobacco Type: Cigarettes Cigarettes Per Day: 4-5 per day; Do You Dip or Chew Tobacco: No; Hx Alcohol Use: No Hx Substance Use: No Preferred Language: [place] Communication Ability: Effective Shoe Stainer Required: No Beliefs That Will Affect Care: None Current Living Situation: Alone Feels Safe at Home: No Safety Concerns: Feels Safe At This Time Assistive Devices: None Physical Exam Physical Exam: On exam she does exhibit significant tenderness palpation of the paravertebral musculature and quadratus lumborum region. She is good strength testing otherwise. Results & Data ([facility]) Vital Signs (Past 12 Hours) Vital Signs Temp Pulse Resp BP BP Pulse Ox 08/29/21 08:01 36.5 C 62 18 90/56 L 97 08/29/21 06:02 36.7 C 66 16 98/63 L 97 08/29/21 04:04 65 16 107/65 96
[2021-08-29 16:15] LABS: Hematocrit (blood only) 25.8 % (37-47); Hemoglobin 7.3 g/dL (12.0-16.0)
--- NOTE | 2021-08-29 16:46 | Hospitalist Progress Note ---
Date of Service August 29, 2021 Assessment & Plan (1) Acute back pain: (2) Transaminitis: (3) Abdominal pain: Plan: 40-year-old female with PMH of gastric bypass, GERD, mood disorder, narcotic abuse, hepatitis C antibody positive, anemia [recent baseline hemoglobin of 10] and ongoing tobacco abuse presented to our ED 08/28/2021 with complaint of achy epigastric pain with nausea and loose stools following EGD scope and colonoscopy on the day of arrival. Reports having fever and chills at home. Patient also complains of worsening of low back pain, no recent history of heavy lifting, worse with motion. Bowel and bladder are normal and no radiation to lower legs. Patient reports last time she used narcotics was 3 months ago. Denies recent alcohol intake. Of note, patient was recently admitted to [facility] 3 weeks ago after being found anemic with hemoglobin of 7 [facility] Patient also found to have pancreatitis during the admission, FOBT was positive, patient received blood transfusion. Patient left AMA. Also 2 weeks ago, patient contacted PCPs office for persistent abdominal and back pain, especially after eating, outpatient CTAP was negative for pancreatitis but was positive for focal ileus/partial small bowel obstruction. Hepatitis C antibody was positive. FOBT was positive. She is being managed for the following: #. Abdominal pain Patient presented with persistent abdominal pain, associated with nausea and loose stools. Patient had recent hospitalization, see above. SIRS criteria negative at presentation, no sepsis POA Admitting CXR negative for acute findings. Admitting CTAP: Mild cecal thickening likely reactive with recent colonoscopy. Admitting blood culture: Pending Recent scope as an outpatient: ~ EGD showed normal esophagus. Alison-en-Y gastrojejunostomy with anastomosis characterized by healthy-appearing mucosa. ~ Colonoscopy showed diverticulosis, internal hemorrhoids and polyp. Repeat colonoscopy after 1 year recommended because of poor bowel preparation as per note. Possibility of C. difficile, test ordered, follow-up results. Admitting lipase WNL WBC WNL, patient afebrile, monitor off antibiotic. If with no improvement, consider GI consult. Tums, PPI. #. Worsening of low back pain Patient has been having low back pain, also complained of acute worsening of her low back pain this admission Admitting L-spine MRI: Tiny central disc protrusion at L5-S1, subcutaneous edema of the lower back. Unremarkable admitting T-spine MRI. d/w [facility], PT/OT, consider repeat MRI in next 2 to 4 weeks if no improvement in her symptoms/worsening back pain to rule out indolent infection. As of now, afebrile, WBC WNL, awaiting blood culture, will monitor her off of antibiotic. #. Acute anemia Hemoglobin at presentation 7.8, recent outpatient FOBT was positive, follow-up hemoglobin stable above 7.3 Transfuse for hemoglobin less than 7 or symptomatic anemia Iron panel positive for low iron with low ferritin storage, will start her on iron supplement Vitamin B12 level low normal, will supplement vitamin B12 for 14 days Folate WNL, FOBT ordered. Monitor Hb daily and as needed. #. Other chronic medical conditions: History of gastric bypass, mood disorder, hepatitis C antibody positive, ongoing tobacco abuse (half pack daily) Continue with/resume home medications as and when appropriate. #. Abnormal LFT f/u LFT in AM. Outpatient GI consult. #. Electrolytes abnormality: Monitor and replete as appropriate. Nicotine patch as needed DVT prophylaxis. Lovenox subcu Full code Admission and Anticipated Discharge Date Admission Date: August 29, 2021 Subjective Patient seen and examined at bedside as a follow-up of acute low back pain. Patient lying in bed, on room air, sleeping, woke up to conversation, cooperative, NAD, no new acute events overnight. Patient reports acute low back pain. Patient denies any fever/chills/chest pain/palpitations/belly pain/other review of symptoms. Patient denies any acute changes with her bowel or bladder habits. Physical Exam Physical Exam: GENERAL: Alert and oriented x3. NAD, on RA. HEENT: No pallor, no icterus. Pupils equal, round and reactive to light. Oral mucosa moist. NECK: No JVD, no neck masses. HEART: S1 and S2 heard. Regular rate and rhythm. No murmur, no gallop. RESPIRATORY SYSTEM: Normal AP diameter. No accessory muscle use. No wheezing, no crackles. ABDOMEN: Soft, bowel sounds present, nontender, no distention. CENTRAL NERVOUS SYSTEM: No facial droop. Speech is clear. Obeys simple commands. Moves extremities. EXTREMITIES: No edema, no erythema seen. Lower back tenderness on palpation, no S/S of infection noted. Results & Data Results & Data ([facility]) Vital Signs (Past 12 Hours) Vital Signs Temp Pulse Resp BP BP Pulse Ox 08/29/21 16:04 103/67 08/29/21 15:55 36.8 C 75 16 87/56 L 98 08/29/21 08:01 36.5 C 62 18 90/56 L 97 08/29/21 06:02 36.7 C 66 16 98/63 L 97 (1) Abdominal pain Abdominal location: left upper quadrant Qualified Code(s): R10.12 - Left upper quadrant pain
[2021-08-29] MEDS: FERROUS GLUCONATE 324 MG TAB PO SCH (17:18)
[2021-08-29] MEDS: CYANOCOBALAMIN (B-12) 100 MCG TABLET PO SCH (17:18)
[2021-08-29] MEDS: CALCIUM CARBONATE 500 MG CHEWABLE TAB PO SCH (20:34)
[2021-08-29] MEDS: traZODone HCL 100 MG TAB PO SCH (20:34)
[2021-08-29] MEDS: ACETAMINOPHEN 325 MG TAB PO PRN (22:16)
[2021-08-30] MEDS ORDERED: DAPTOmycin 350 MG in SYRINGE 0 ML IV SCH (06:00)
[2021-08-30 08:14] LABS: Hematocrit (blood only) 29.4 % (37-47); Hemoglobin 8.3 g/dL (12.0-16.0); Mean Corpuscular Hgb Conc 28.2 g/dL (32-36); Mean Corpuscular Volume 67.4 fL (80-100); Mean Platelet Volume 9.7 fL (7.4-10.4); Platelet Count 218 K/uL (130-400); RDW Coefficient of Variation 25.1 % (11.5-14.5); RDW Standard Deviation 60.8 fL (36.4-46.3); Red Blood Count 4.36 M/uL (4.2-5.4); White Blood Count 2.79 K/uL (4.8-10.8)
[2021-08-30] MEDS: CALCIUM CARBONATE 500 MG CHEWABLE TAB PO SCH ×2 (08:19→19:59)
[2021-08-30] MEDS: PANTOprazole 40 MG TAB PO SCH ×2 (08:20→19:59)
[2021-08-30] MEDS: busPIRone 5 MG TAB PO SCH ×2 (08:20→19:58)
[2021-08-30 08:21] LABS: BUN Creatinine Ratio 9.6 (10-20); Bilirubin Direct 0.1 mg/dl (0-0.2); Bilirubin,Total 0.5 mg/dl (0.2-1.0); Calcium 8.2 mg/dl (8.5-10.1); Creatinine Clr Calc Pharmacy 135.2 ml/min; Est GFR (African American) 137.5 ml/min; Est GFR (Non-African American) 118.7 ml/min; Phosphorus 3.3 mg/dl (2.5-4.9); Total Protein 5.9 gm/dl (6.0-8.3)
[2021-08-30] MEDS: FERROUS GLUCONATE 324 MG TAB PO SCH (08:21)
[2021-08-30] MEDS: FLUoxetine HCL 20 MG CAP PO SCH (08:21)
[2021-08-30] MEDS: CYANOCOBALAMIN (B-12) 100 MCG TABLET PO SCH (08:21)
--- NOTE | 2021-08-30 15:42 | Hospitalist Progress Note ---
Date of Service August 30, 2021 Assessment & Plan (1) Acute back pain: (2) Transaminitis: (3) Abdominal pain: Plan: 40-year-old female with PMH of gastric bypass, GERD, mood disorder, narcotic abuse, hepatitis C antibody positive, anemia [recent baseline hemoglobin of 10] and ongoing tobacco abuse presented to our ED 08/28/2021 with complaint of achy epigastric pain with nausea and loose stools following EGD scope and colonoscopy on the day of arrival. Reports having fever and chills at home. Patient also complains of worsening of low back pain, no recent history of heavy lifting, worse with motion. Bowel and bladder are normal and no radiation to lower legs. Patient reports last time she used narcotics was 3 months ago. Denies recent alcohol intake. Of note, patient was recently admitted to [facility] 3 weeks ago after being found anemic with hemoglobin of 7 [facility]. Patient also found to have pancreatitis during the admission, FOBT was positive, patient received blood transfusion. Patient left AMA. Also 2 weeks ago, patient contacted PCPs office for persistent abdominal and back pain, especially after eating, outpatient CTAP was negative for pancreatitis but was positive for focal ileus/partial small bowel obstruction. Hepatitis C antibody was positive. FOBT was positive. She is being managed for the following: #. Abdominal pain Patient presented with persistent abdominal pain, associated with nausea and loose stools. Patient had recent hospitalization, see above. SIRS criteria negative at presentation, no sepsis POA Admitting CXR negative for acute findings. Admitting CTAP: Mild cecal thickening likely reactive with recent colonoscopy. Admitting blood culture: Pending, [id number] Recent scope as an outpatient: ~ EGD showed normal esophagus. Alison-en-Y gastrojejunostomy with anastomosis characterized by healthy-appearing mucosa. ~ Colonoscopy showed diverticulosis, internal hemorrhoids and polyp. Repeat colonoscopy after 1 year recommended because of poor bowel preparation as per note. Patient reports improvement in her loose stool, C. difficile negative, FOBT negative, reports improvement in her belly pain, tolerating diet well, advance diet. Admitting lipase WNL. WBC WNL, patient afebrile, monitor off antibiotic. Tums, PPI. #. Worsening of low back pain Patient has been having low back pain, also complained of acute worsening of her low back pain this admission Admitting L-spine MRI: Tiny central disc protrusion at L5-S1, subcutaneous edema of the lower back. Unremarkable admitting T-spine MRI. d/w [facility], PT/OT, consider repeat MRI in next 2 to 4 weeks if no improvement in her symptoms/worsening back pain to rule out indolent infection. As of now, afebrile, WBC WNL, awaiting blood culture, will monitor her off of antibiotic. Pt reports improving low back pain, continue w/ PT/OT as OP. #. Acute anemia Hemoglobin at presentation 7.8, recent outpatient FOBT was positive, follow-up hemoglobin stable above 7.3 Transfuse for hemoglobin less than 7 or symptomatic anemia Iron panel positive for low iron with low ferritin storage, c/w iron supplement Vitamin B12 level low normal, will supplement vitamin B12 for 14 days Folate WNL, FOBT negative. Monitor Hb daily and as needed. #. Other chronic medical conditions: History of gastric bypass, mood disorder, hepatitis C antibody positive, ongoing tobacco abuse (half pack daily) Continue with/resume home medications as and when appropriate. #. Abnormal LFT f/u LFT in AM. Outpatient GI consult. #. Electrolytes abnormality: Monitor and replete as appropriate. Nicotine patch as needed DVT prophylaxis. Lovenox subcu Full code Disposition: Likely DC tomorrow, will need outpatient GI follow-up, evaluation for repeat MRI in 2 to 4 weeks with PCP, prescription for outpatient physical therapy. Admission and Anticipated Discharge Date Admission Date: August 29, 2021 Subjective Patient seen and examined at bedside as a follow-up of acute low back pain. Patient lying in bed, on room air, sleeping, woke up to conversation, cooperative, NAD, no new acute events overnight. Patient reports improving low back pain, denies any nausea/vomiting/loose stool. Denies belly pain. Patient denies any fever/chills/chest pain/palpitations/belly pain/other review of symptoms. Will advance diet. Physical Exam Physical Exam: GENERAL: Alert and oriented x3. NAD, on RA. HEENT: No pallor, no icterus. Pupils equal, round and reactive to light. Oral mucosa moist. NECK: No JVD, no neck masses. HEART: S1 and S2 heard. Regular rate and rhythm. No murmur, no gallop. RESPIRATORY SYSTEM: Normal AP diameter. No accessory muscle use. No wheezing, no crackles. ABDOMEN: Soft, bowel sounds present, nontender, no distention. CENTRAL NERVOUS SYSTEM: No facial droop. Speech is clear. Obeys simple commands. Moves extremities. EXTREMITIES: No edema, no erythema seen. Lower back tenderness on palpation, no S/S of infection noted. Results & Data Results & Data ([facility]) Vital Signs (Past 12 Hours) Vital Signs Temp Pulse Resp BP Pulse Ox 08/30/21 07:36 36.8 C 64 18 106/68 97 (1) Abdominal pain Abdominal location: left upper quadrant Qualified Code(s): R10.12 - Left upper quadrant pain
[2021-08-30 15:51] VITALS: BP 107/71; PULSE 71; TEMP 97.5; O2SAT 99
[2021-08-30] MEDS: ACETAMINOPHEN 325 MG TAB PO PRN (16:17)
[2021-08-30] MEDS: oxyCODONE HCL IR 5 MG TAB (IMMEDIATE RELEASE) PO PRN (18:29)
[2021-08-30] MEDS: traZODone HCL 100 MG TAB PO SCH (19:59)
--- NOTE | 2021-08-30 22:40 | Communication Note ---
Date of Service: August 30, 2021 Made aware by RN of patient request to leave hospital to AGAINST MEDICAL ADVICE. Patient not willing to wait for morning provider citing the need to be with her grandfather who is currently very sick and confined to [facility]. Patient intent on departing hospital AGAINST MEDICAL ADVICE despite explanations provided and citation of risks/possible consequences arising from decision to leave AMA which includes missed infection and medical insurance implications. Patient signed AMA papers.
[2021-08-31 09:47] LABS: Hepatitis C Viral RNA by PCR 3130000 IU/mL (NOT DETECTED)
--- NOTE | 2021-08-31 12:21 | Discharge Summary ---
Date of Service August 31, 2021 DISCHARGE SUMMARY FOR 08/30/21. Admission HPI Per Admitting Provider History obtained from patient and records. Medical history significant for gastric bypass, GERD, mood disorder, narcotic abuse as per records, hepatitis C antibody positivity, anemia (recent baseline hemoglobin of 10), ongoing tobacco abuse Last confinement June 2017 for hypoglycemic seizure. Patient admitted at [facility] [place], [place] 3 weeks ago after patient found to be anemic with a hemoglobin of 7 on lab work drawn prior to admission at [facility]. Patient claims last time she used narcotics was 3 months ago. Patient also found to have pancreatitis during admission. Denies recent alcohol intake. FOBT was positive. Patient received blood transfusion for anemia. Patient left hospital AGAINST MEDICAL ADVICE. 2 weeks ago, patient followed up at PCP's office. Persistent abdominal and back pain especially with eating. Outpatient CT abdomen pelvis was negative for pancreatitis. Focal ileus or partial small bowel obstruction noted. Hepatosplenomegaly noted as well. Outpatient hemoglobin noted to be 10.2. Low serum iron noted. FOBT still positive. Abnormal LFTs noted. Hepatitis C antibody was noted to be positive. HCV RNA testing recommended. Patient directed to [facility] for evaluation but subsequently discharged. Outpatient EGD, colonoscopy for GI bleed recommended by [facility] Col[facility] Surgery on outpatient evaluation 10 days ago. Patient underwent outpatient endoscopy yesterday. EGD showed normal esophagus. Alison-en-Y gastrojejunostomy with anastomosis characterized by healthy-appearing mucosa. Colonoscopy showed diverticulosis, internal hemorrhoids and polyp. Repeat colonoscopy after 1 year recommended because of poor bowel preparation as per note. A few hours after procedure at home, patient noted achy epigastric pain with nausea and loose stools. Patient also with back pain somewhat worse with motion. No radiation to lower legs. No incontinence symptoms. Patient denies chest pain, cough, S OB, headache. Fever chills noted at home. Patient given Zosyn at the ER for possible sepsis. MEDICAL HISTORY: As above. SURGERIES: Gastric bypass surgery, tonsillectomy, adenectomy, hiatal hernia surgery, cholecystectomy, FAMILY HISTORY: Heart disease, breast cancer, DM, stroke PERSONAL AND SOCIAL HISTORY: Half pack daily. No chronic intake of alcoholic beverages. Prior work a [employer], currently unemployed. Admission Exam Per Admitting Provider GENERAL: uncomfortable, no respiratory distress SKIN: Pallor, warm HEENT: Pale palpebral conjunctivae, no ptosis, dry buccal mucosa NECK : Supple, no tenderness CHEST : CTA, no tenderness HEART : RRR, no obvious murmurs ABDOMEN: Some distention, epigastric tenderness BACK : Mid and low back tenderness, negative SLR EXTREMITIES : No LE swelling/tenderness, no other conspicuous deformities noted NEUROLOGIC : Coherent, no facial asymmetry, no other gross focality Principal Diagnosis Acute on Chronic low back pain Acute abdominal pain Transaminitis Discharge Exam see progress note of 08/30/21 Discharge Data Allergies Allergy/AdvReac Type Severity Reaction Status Date / Time bupropion Allergy Intermediate HIVES Verified 08/28/21 23:19 hydromorphone AdvReac Intermediate VOMITING Verified 08/28/21 23:19 NSAIDS (Non-Steroidal AdvReac Unknown CONTRAINDICATED Verified 08/28/21 23:19 Anti-Inflamma D/T GASTRIC BYPASS Consultations 08/29/21 02:56 ED Decision to Admit Stat 08/29/21 12:46 Consult Orthopedic Surgery Routine Ordered Studies 08/28/21 23:45 CT abd pelvis IV con only Urgent 08/29/21 03:41 MR lumbar spine wo/w con Urgent MR thoracic spine wo/w con Urgent Hospital Course (1) Acute back pain: (2) Transaminitis: (3) Abdominal pain: 40-year-old female with PMH of gastric bypass, GERD, mood disorder, narcotic abuse, hepatitis C antibody positive, anemia [recent baseline hemoglobin of 10] and ongoing tobacco abuse presented to our ED 08/28/2021 with complaint of achy epigastric pain with nausea and loose stools following EGD scope and colonoscopy on the day of arrival. Reports having fever and chills at home. Patient also complains of worsening of low back pain, no recent history of heavy lifting, worse with motion. Bowel and bladder are normal and no radiation to lower legs. Patient reports last time she used narcotics was 3 months ago. Denies recent alcohol intake. Of note, patient was recently admitted to [facility] 3 weeks ago after being found anemic with hemoglobin of 7 on lab work drawn at [facility]. Patient also found to have pancreatitis during the admission, FOBT was positive, patient received blood transfusion. Patient left AMA. Also 2 weeks ago, patient contacted PCPs office for persistent abdominal and back pain, especially after eating, outpatient CTAP was negative for pancreatitis but was positive for focal ileus/partial small bowel obstruction. Hepatitis C antibody was positive. FOBT was positive. She was managed for the following: #. Abdominal pain Patient presented with persistent abdominal pain, associated with nausea and loose stools. Patient had recent hospitalization, see above. SIRS criteria negative at presentation, no sepsis POA Admitting CXR negative for acute findings. Admitting CTAP: Mild cecal thickening likely reactive with recent colonoscopy. Admitting blood culture: Pending, NG24H Recent scope as an outpatient: ~ EGD showed normal esophagus. Alison-en-Y gastrojejunostomy with anastomosis characterized by healthy-appearing mucosa. ~ Colonoscopy showed diverticulosis, internal hemorrhoids and polyp. Repeat colonoscopy after 1 year recommended because of poor bowel preparation as per note. Patient reports improvement in her loose stool, C. difficile negative, FOBT negative, reports improvement in her belly pain, tolerating diet well, advance diet. Admitting lipase WNL. WBC WNL, patient afebrile, monitor off antibiotic. Tums, PPI. #. Worsening of low back pain Patient has been having low back pain, also complained of acute worsening of her low back pain this admission Admitting L-spine MRI: Tiny central disc protrusion at L5-S1, subcutaneous edema of the lower back. Unremarkable admitting T-spine MRI. d/w [facility], PT/OT, consider repeat MRI in next 2 to 4 weeks if no improvement in her symptoms/worsening back pain to rule out indolent infection. As of now, afebrile, WBC WNL, awaiting blood culture, will monitor her off of antibiotic. Pt reports improving low back pain, continue w/ PT/OT as OP. #. Acute anemia Hemoglobin at presentation 7.8, recent outpatient FOBT was positive, follow-up hemoglobin stable above 7.3 Transfuse for hemoglobin less than 7 or symptomatic anemia Iron panel positive for low iron with low ferritin storage, c/w iron supplement Vitamin B12 level low normal, will supplement vitamin B12 for 14 days Folate WNL, FOBT negative. Monitor Hb daily and as needed. #. Other chronic medical conditions: History of gastric bypass, mood disorder, hepatitis C antibody positive, ongoing tobacco abuse (half pack daily) Continue with/resume home medications as and when appropriate. #. Abnormal LFT f/u LFT in AM. Outpatient GI consult. #. Electrolytes abnormality: Monitor and replete as appropriate. Nicotine patch as needed DVT prophylaxis. Lovenox subcu Full code Patient left AMA in the evening and was discharged per [facility]. Total Time Total Time Spent Total Time Spent (In Minutes): 35 Discharge Plan Discharge Items Patient Disposition: Against Medical Advice Reason For Visit: SEPSIS Activity: Resume your previous activity Non-emergency contact: Primary Care Provider Follow-up/Referrals: Nata Baker, [Primary Care Provider] - (*Please note that your previously scheduled appointment on 09/03- the time has been changed to 3PM.* Date & Time 09/03/2021 3:00 PM Provider LEANNE Garcia Department Family [facility] ) Pending Studies at Discharge: Yes (admitting blood culture) Stand-Alone Forms: My [facility] [email or web address], Smoking Cessation Medications and DC Order Prescriptions: No Action omeprazole 40 mg Capsule,Delayed Release(Dr/Ec) 40 mg PO BID RF: 0 trazodone 100 mg Tablet 100 mg PO HS RF: 0 buspirone [BuSpar] 10 mg Tablet 10 mg PO BID RF: 0 fluoxetine [Prozac] 20 mg Capsule 20 mg PO DAILY RF: 0 Discharge Orders: Left Against Medical Advice (Routine); Ordered 08/30/21 Ordered By: Gareth Watson Admission Data Admit Date/Time: 08/29/21 03:45 Attending Provider: Fernando Crawley Admit Provider: Gareth Watson Primary Care Provider: Nata Baker Other Providers: Gareth Watson ; Sly Chavez
[2021-09-01 10:22] LABS: HBSAG NON-REACTIVE (NON-REACTIVE); Hepatitis A Antibody IgM NON-REACTIVE (NON-REACTIVE); Hepatitis B Core Antibody IgM NON-REACTIVE (NON-REACTIVE)
[2021-09-03 09:09] LABS: Hepatitis C Vira RNA (Log) PCR 6.93 Log IU/mL (NOT DETECTED); Hepatitis C Viral RNA by PCR 8600000 IU/mL (NOT DETECTED)
== END 2021-08-30 22:44 | disposition left against medical advice (07) ==
LOC: ED 22:40 → 3N 08-29 03:45 → INTOOBSV 08-29 03:45 → 3N 08-29 04:35